=== PATIENT | male | born 1980 | race Caucasian/White ===

== ENCOUNTER 2021-11-01 19:47 | Emergency (ER) | payer OTHER, SELFPAY ==
--- NOTE | 2021-11-01 20:17 | ED.MALEGU ---
HPI - Male Genitourinary General Stated complaint: groin area pain Time Seen by Provider: 11/01/21 19:47 Source: patient, RN notes reviewed and old records reviewed Mode of arrival: ambulatory Limitations: no limitations and other (acute pain) History of Present Illness HPI Narrative: Patient has acute right groin pain and pain to right testicle inquired what test we could do for him. Informed that we only have regular x-ray testing at our facility. Patient stated he would just go to ER. Course Course Level of Care: Express Care Visit Discharge Plan Discharge Time of Disposition: 19:55 Quality [place] Coma Scale Eyes: Open Verbal: Oriented and Alert Motor: Follows Commands [place] Coma Total Score: 15
== END 2021-11-01 19:55 | disposition left against medical advice (07) ==
PROVIDERS: Emergency Provider Registered Nurse
DX: Z53.21 Procedure and treatment not carried out due to patient leaving prior to being seen by health care provider (principal)
CPT/HCPCS: 99199

== ENCOUNTER 2021-11-01 20:24 | Emergency (ER) | payer OTHER, SELFPAY ==
--- NOTE | ~2021-11-01 | CT_ITS ---
EXAMINATION: CT abdomen pelvis wo con DATE: 11/01/2021 21:00 INDICATION: Right lower quadrant, pelvic, and testicular pain beginning yesterday. TECHNIQUE: Computed tomography (CT) of the abdomen and pelvis was performed without intravenous contr ast. Automated exposure control and iterative reconstruction technique were employed. The dose-length product was 1082.42 mGy-cm. COMPARISON: None FINDINGS: Lower thorax: Unremarkable Liver: Normal. Biliary/Gallbladder: Gallbladder is normal. No bile duct dilation. Pancreas: No mass or duct dilation. Spleen: Normal. Adrenals:No mass. Kidneys: No mass, stone, or hydronephrosis. GI tract: No small or large bowel dilation. Normal appendix. Chronic fatty wall infiltration of the c olon, as can be seen with chronic IBD, obesity, chemotherapy treatment, and celiac disease. Mild soft tissue density wall thickening of the sigmoid colon and rectum, in areas of incomplete bowel distent ion. Mesentery/Peritoneum: No ascites, mass, or free air. Retroperitoneum: No mass. Pelvis: Prominent seminal vesicles with surrounding inflammatory change which extends along the super ior margin of the prostate. Partially distended bladder with wall thickening. Soft Tissues: Small fat-containing umbilical and bilateral inguinal hernias. Bones: No acute osseous finding. IMPRESSION: Prominent seminal vesicles with inflammatory change that involves the prostate, may reflect seminal v esiculitis/prostatitis in the appropriate clinical context. Bladder wall thickening secondary to inad equate distention versus cystitis. Distal sigmoid and rectal wall thickening may be explained by inad equate distention, although mild colitis remains a possibility. Reviewed, dictated and finalized at location K. IMPRESSION: Prominent seminal vesicles with inflammatory change that involves the prostate, may reflect seminal vesiculitis/prostatitis in the appropriate clinical contex t. Bladder wall thickening secondary to inadequate distention versus cystitis. Distal sigmoid and rectal wall thickening may be explained by inadequate disten tion, although mild colitis remains a possibility.
--- NOTE | ~2021-11-01 | US_ITS ---
EXAMINATION: US scrotum doppler DATE: 11/01/2021 21:50 INDICATION: Right testicular pain. TECHNIQUE: Grayscale and Doppler ultrasound images of the testes were obtained. COMPARISON: CT abdomen and pelvis 11/01/2021 FINDINGS: The right testis measures 5.2 x 3.4 x 2.3 cm. The left testis measures 4.7 x 2.8 x 2.1 cm. There is normal vascular flow to both testes. The right epididymis is normal with normal vascular pia w. The left epididymis is normal with normal vascular flow. There is a small right hydrocele. There a re bilateral varicoceles. IMPRESSION: 1. Small right hydrocele. 2. Bilateral varicoceles. Reviewed, dictated and finalized at location B.
[2021-11-01 20:27] VITALS: BP 122/94; PULSE 72; RESP 18; TEMP 36.4; O2SAT 99
--- NOTE | 2021-11-01 20:45 | ED.MALEGU ---
HPI - Male Genitourinary General Chief complaint: Urogenital-Male Stated complaint: testicular/groin pain, lump Time Seen by Provider: 11/01/21 20:27 History of Present Illness HPI Narrative: 41-year-old male presents the emergency room for evaluation of right testicular pain and pelvic discomfort. Patient states the pain. Started gradually yesterday. States pain is worse when he standing up and slightly improves when sitting down or lying flat. Patient states the pain is stabbing and throbbing. Patient denies any dysuria. Denies nausea, vomiting, constipation, or diarrhea. He states over the weekend he was on vacation with his girlfriend of 2 years, and states that he had intercourse 3-4 times a day for at least 30 to 45 minutes at a time. States the pain was worse following intercourse. Denies any concerns or STIs. Denies injury or trauma to his scrotum. Related Data Home Medications Medication Instructions Recorded Confirmed atorvastatin 40 mg tablet mg 11/01/21 bupropion HCl 300 mg 24 hr tablet, tablet PO 11/01/21 extended release duloxetine 30 mg capsule,delayed mg PO 11/01/21 release (Cymbalta) pantoprazole 11/01/21 Allergies Allergy/AdvReac Type Severity Reaction Status Date / Time No Known Allergies Allergy Verified 11/01/21 21:56 Review of Systems Review of Systems: CONSTITUTIONAL: Denies fever, chills, or sweats. CARDIOVASCULAR: Denies chest pain, palpitations, or edema. RESPIRATORY: Denies cough or dyspnea. GASTROINTESTINAL: Reports pelvic discomfort GENITOURINARY: Denies dysuria or hematuria. Reports right testicle pain SKIN: Denies rash or itching. NEUROLOGIC: Denies headache, numbness, dizziness, or weakness. PSYCHIATRIC: Denies anxiety or depression. Exam Narrative: GENERAL: Well-appearing, well-nourished, and in no acute distress. HEAD: Normocephalic, atraumatic. CHEST: Clear to auscultation. No respiratory distress. No wheezes rales or rhonchi HEART: Regular rate and rhythm. No murmur heard. Normal peripheral pulses. ABDOMEN: Right pelvic tenderness, change tenderness over the right pubis, no notable mass when lying or standing : Mild tenderness to the posterior surface of the right testicle, tenderness to the lateral side of the left testicle, no palpable masses, no erythema, no swelling EXTREMITIES: Normal range of motion. No edema. SKIN: Warm, dry, no rash. NEURO: No focal deficits. Alert and oriented x3. PSYCH: Normal mood and affect. Course Vital Signs Vital signs: Vital Signs Temperature 36.4 C 11/01/21 20:27 Pulse Rate 72 11/01/21 20:27 Respiratory Rate 18 11/01/21 20:27 Blood Pressure 122/94 H 11/01/21 20:27 Pulse Oximetry 99 11/01/21 20:27 Oxygen Delivery Room Air 11/01/21 20:27 Temperature 36.4 C 11/01/21 20:27 Pulse Rate 72 11/01/21 20:27 Respiratory Rate 18 11/01/21 20:27 Blood Pressure 122/94 H 11/01/21 20:27 Pulse Oximetry 99 11/01/21 20:27 Oxygen Delivery Room Air 11/01/21 20:27 MDM - Male Genitourinary MDM Narrative Medical decision making narrative: 41-year-old male presented emergency room complaints of right testicle pain that radiated up into his pelvic region. Patient admitted to recent repeated and lengthy intercourse with his significant other. Testicular ultrasound showed no acute changes, he did have bilateral varicoceles. CT of the abdomen shows inflammation around the seminal vesicle on the right side and inflammatory changes to the prostate. Patient likely experiencing several vasculitis/prostatitis. Patient stated that he was not concerned for STI infection, however patient was agreeable to testing with treatment at this time. Patient was given IV Cipro and we will send him home with p.o. Cipro and follow-up with urology. Imaging Data Radiologist's impression: Impressions Abdomen/Pelvis CT 11/01/21 21:17 IMPRESSION: Prominent seminal vesicles with inflammatory change that involves
[2021-11-01] MEDS: MORPHINE SULFATE (*CRX) 4 MG/ML INJ IV PUSH (21:05)
[2021-11-01] MEDS: ONDANSETRON INJ 4 MG/2 ML VIAL IV PUSH (21:05)
[2021-11-01] MEDS: SODIUM CHLORIDE 0.9% IV 1,000 ML 999 ML IV CONT (21:06)
[2021-11-01 21:12] LABS: Basophils Absolute Auto 0.1 K/mm3 (0.0-0.1); Basophils Percent Auto 0.8 % (0.2-1.2); Eosinophils Absolute Auto 0.2 K/mm3 (0-0.3); Eosinophils Percent Auto 2.3 % (0-4.4); Hematocrit 41.2 % (42.0-52.0); Hemoglobin 13.9 g/dL (14.0-18.0); Immature Granulocyte Absolute 0.03 K/mm3 (0.00-0.031); Immature Granulocyte Percent A 0.3 % (0-0.5); Lymphocytes Absolute Auto 2.71 K/mm3 (0.9-3.2); Lymphocytes Percent Auto 31.1 % (18.3-44.2); Mean Corpuscular HGB Conc 33.7 g/dl (32-36); Mean Corpuscular Hemoglobin 31.5 pg (26-34); Mean Corpuscular Volume 93.4 fl (80-100); Mean Platelet Volume 9.2 fl (7.4-10.4); Monocytes Absolute Auto 0.9 K/mm3 (0.1-0.6); Monocytes Percent Auto 10.5 % (2.6-8.5); Neutrophils Absolute Auto 4.8 K/mm3 (1.3-6.7); Platelet Count Result 224 k/mm3 (150-375); Red Blood Count 4.41 M/mm3 (4.6-6.20); Red Cell Distribution Width 12.7 % (11.5-14.5); White Blood Count 8.7 K/mm3 (4.5-10.0)
[2021-11-01 21:26] LABS: Alanine Aminotransferase 45 U/L (6-50); Albumin Level 4.2 g/dL (3.5-5.1); Alkaline Phosphatase 81 U/L (38-126); Anion Gap 7 mmol/L (8-16); Aspartate Amino Transferase 28 U/L (17-59); Bilirubin,Total 0.8 mg/dL (0.2-1.3); Blood Urea Nitrogen 13 mg/dL (9-20); Calcium 8.7 mg/dL (8.4-10.2); Carbon Dioxide 28 mmol/L (22-30); Chloride 104 mmol/L (98-107); Estimated CRCL calculation 96 ml/min; Estimated Glomerular Filt Rate > 60; Glucose 92 mg/dL (65-110); Potassium 3.8 mmol/L (3.4-5.0); Sodium 139 mmol/L (137-145)
[2021-11-01 23:03] LABS: Appearance Urine Clear (Clear); Bilirubin Urine Negative (Negative); Blood Urine Negative (Negative); Color Urine Yellow (Yellow); Glucose Urine UA Negative (Negative); Ketones Urine Negative (Negative); Leukocyte Esterase Ur Trace LEU/UL (Negative); Nitrate Urine Negative (Negative); Protein Urine 1+ mg/dL (Negative); Specific Grav Ur 1.025 (1.001-1.035); pH Urine 6.5 (5.0-9.0)
[2021-11-01 23:10] LABS: Bacteria Urine Trace /hpf; Mucus Urine Moderate /lpf; Squamous Epithelial Cell Urine Rare /hpf (Few); WBC Urine 16-20 /hpf
[2021-11-01 23:11] LABS: Add Urine Microscopic? YES
[2021-11-01] MEDS: CIPROFLOXACIN 400 MG/D5W 200ML 200 ML 200 MG IVPB (23:13)
--- NOTE | 2021-11-01 23:13 | PC.NURSE ---
Assumed care of pt at this time, report taken from Rosalina SCOTT. Pt alert and upright on stretcher, updated on POC.
[2021-11-01 23:15] VITALS: BP 119/72; PULSE 72; RESP 16; O2SAT 97
[2021-11-01 23:20] LABS: Prostate Specific Antigen 0.9 ng/mL (< OR = 4.0)
[2021-11-02 00:40] VITALS: BP 122/80; PULSE 68; RESP 16; O2SAT 97
== END 2021-11-02 00:43 | disposition home or self-care (01) ==
PROVIDERS: Emergency Provider Nurse Practitioner Family
DX: N49.0 Inflammatory disorders of seminal vesicle (principal); N50.811 Right testicular pain
CPT/HCPCS: 36415; 74176; 76870; 80053; 81001; 84153; 85025; 87086; 87491; 87591; 87661; 93976; 96361; 96365; 96375; 99284; J0744; J2270; J2405; J7030

== ENCOUNTER 2022-05-09 08:56 | Emergency (ER) | payer OTHER, SELFPAY ==
[2022-05-09 09:28] VITALS: BP 129/77; PULSE 106; RESP 18; TEMP 37.8; O2SAT 100
--- NOTE | 2022-05-09 10:23 | ED.GENADULT ---
HPI - General Adult General Chief complaint: Upper Respiratory Infection Stated complaint: fever,stomach pain,sinus drainage,body aches Source: patient Mode of arrival: ambulatory Limitations: no limitations History of Present Illness HPI narrative: Patient presents for evaluation of sick symptoms since yesterday. Symptoms include fever, generalized body aches, fatigue, occasional cough, nausea, diarrhea, sinus congestion and postnasal drainage.. No vomiting, shortness of breath or sore throat. His daughter recently had similar symptoms. He has received COVID vaccination. He quit smoking a week ago. No additional complaints or concerns. Related Data Home Medications Medication Instructions Recorded Confirmed atorvastatin 40 mg tablet mg 11/01/21 bupropion HCl 300 mg 24 hr tablet, tablet PO 11/01/21 extended release duloxetine 30 mg capsule,delayed mg PO 11/01/21 release (Cymbalta) pantoprazole 11/01/21 Allergies Allergy/AdvReac Type Severity Reaction Status Date / Time No Known Allergies Allergy Verified 05/09/22 09:47 Review of Systems Review of Systems: CONSTITUTIONAL: Reports fever and fatigue. EYES: Denies visual changes, redness, or discharge. ENT: Reports sinus congestion, postnasal drainage. Denies sore throat or otalgia. CARDIOVASCULAR: Denies chest pain, palpitations, or edema. RESPIRATORY: Reports cough. Denies shortness of breath. GASTROINTESTINAL: Reports nausea and diarrhea. Denies abdominal pain or vomiting GENITOURINARY: Denies dysuria or hematuria. SKIN: Denies rash or itching. MUSCULOSKELETAL: Reports generalized body aches NEUROLOGIC: Denies headache, numbness, dizziness, or weakness. PSYCHIATRIC: Denies anxiety or depression. [facility] Past Medical History Medical History (Updated 05/09/22 @ 10:25 by PETER Echols, JOHN PAUL) No pertinent past medical history Surgical History Surgical History (Updated 05/09/22 @ 10:25 by PETER Echols, JOHN PAUL) No pertinent past surgical history Family History Family History Mother Family history non-contributory Social History Social History Smoking status: Former smoker Gender identity (if verbalized by the patient): Male Sexual Orientation (if Verbalized by the Patient): Straight or Heterosexual Spiritual care concerns: No Exam Narrative: GENERAL: Appears acutely ill but nontoxic. HEAD: Normocephalic, atraumatic. EYES: PERRLA and EOMI. ENT: Nares clear, no rhinorrhea or epistaxis. Mucous membranes moist. Oropharynx without tonsillar hypertrophy exudate or other lesions. Bilateral TMs pearly patterson nonbulging NECK: Supple. No adenopathy or masses. No carotid bruits or JVD CHEST: Clear to auscultation. No respiratory distress. No wheezes rales or rhonchi HEART: Regular rate and rhythm. No murmur heard. Normal peripheral pulses. ABDOMEN: Soft, nontender, nondistended, normal active bowel sounds. EXTREMITIES: Normal range of motion. No edema. SKIN: Warm, dry, no rash. NEURO: No focal deficits. Alert and oriented x3. PSYCH: Normal mood and affect. Course Course Emergency Course: This is a 42-year-old male who presented for evaluation of sick symptoms. Influenza positive, COVID negative. Will treat with Tamiflu. Increase hydration. [id number] medications for symptom management. Follow up with primary provider. Go to the ER for worsening symptoms. Patient in agreement with care. Level of Care: Express Care Visit Vital Signs Vital signs: Vital Signs Temperature 37.8 C H 05/09/22 09:28 Pulse Rate 106 H 05/09/22 09:28 Respiratory Rate 18 05/09/22 09:28 Blood Pressure 129/77 05/09/22 09:28 Pulse Oximetry 100 05/09/22 09:28 Oxygen Delivery Room Air 05/09/22 09:28 Temperature 37.8 C H 05/09/22 09:28 Pulse Rate 106 H 05/09/22 09:28 Respiratory Rate 1
== END 2022-05-09 10:30 | disposition home or self-care (01) ==
PROVIDERS: Emergency Provider Nurse Practitioner
DX: J10.1 Influenza due to other identified influenza virus with other respiratory manifestations (principal); Z20.822 Contact with and (suspected) exposure to COVID-19; Z87.891 Personal history of nicotine dependence
CPT/HCPCS: 87081; 87426; 87804; 99213; C9803; G0463

== ENCOUNTER 2024-01-10 08:44 | Emergency (ER) | payer OTHER, SELFPAY ==
[2024-01-10 08:50] VITALS: BP 134/81; PULSE 89; RESP 20; TEMP 36.7; O2SAT 100
--- NOTE | 2024-01-10 09:15 | ED.EYEPROB ---
HPI - Eye Problem General Chief complaint: Eye Problems Stated complaint: eyes/pressure around eyes History of Present Illness HPI Narrative: Patient presents with left eye watering matted shut this morning and red. No injury to his eye he does not were contacts. Patient states his kids were just surrounding the thinks that they shared their pinkeye with him. No vision problems. Related Data Home Medications Medication Instructions Recorded Confirmed atorvastatin 10 mg tablet 10 mg PO DAILY 01/10/24 01/10/24 bupropion HCl 300 mg 24 hr tablet, 300 mg PO QAM 01/10/24 01/10/24 extended release (Wellbutrin XL) dextroamphetamine-amphetamine 10 10 mg PO DAILY 01/10/24 01/10/24 mg tablet (Adderall) Allergies Allergy/AdvReac Type Severity Reaction Status Date / Time No Known Allergies Allergy Verified 01/10/24 09:09 Review of Systems Review of Systems: CONSTITUTIONAL: Denies fever, chills, or sweats. EYES: Denies visual changes, redness, or discharge. ENT: Denies rhinorrhea, congestion, sore throat, or otalgia. CARDIOVASCULAR: Denies chest pain, palpitations, or edema. RESPIRATORY: Denies cough or dyspnea. GASTROINTESTINAL: Denies abdominal pain, nausea, vomiting, or diarrhea. GENITOURINARY: Denies dysuria or hematuria. SKIN: Denies rash or itching. MUSCULOSKELETAL: Denies back pain, joint pain, or myalgia. NEUROLOGIC: Denies headache, numbness, or weakness. PSYCHIATRIC: Denies anxiety or depression. [facility] Past Medical History Medical History (Updated 01/10/24 @ 09:16 by PETER Whitaker) No pertinent past medical history Surgical History Surgical History (Updated 05/09/22 @ 10:25 by PETER Echols, ) No pertinent past surgical history Family History Family History Mother Family history non-contributory Social History Social History Smoking status: Former smoker Living arrangements: with family Gender identity (if verbalized by the patient): Male Sexual Orientation (if Verbalized by the Patient): Straight or Heterosexual Spiritual care concerns: No Comments At time of signature, agree with nursing past medical, surgical, social and family history. There is no relevant family history pertinent to the presenting complaint Exam Narrative: GENERAL: Well-appearing, well-nourished, and in no acute distress. HEAD: Normocephalic, atraumatic. EYES: PERRLA and EOMI. ENT: Nares clear, no rhinorrhea or epistaxis. Mucous membranes moist. NECK: Supple. CHEST: Clear to auscultation. No respiratory distress. HEART: Regular rate and rhythm. No murmur heard. Normal peripheral pulses. ABDOMEN: Soft, nontender, nondistended, normal active bowel sounds. EXTREMITIES: Normal range of motion. No edema. SKIN: Warm, dry, no rash. NEURO: No focal deficits. Alert and oriented x3. [place] Coma Scale Eye Opening: Spontaneous 4 [place] Coma Scale Motor: Obeys Commands 6 [place] Coma Scale Verbal: Oriented 5 [place] Coma Scale Total 15 Eyes: Conjunctivae: conjunctival abnormality left and localized (Conjunctivitis) Course Course Level of Care: Express Care Visit Vital Signs Vital signs: Vital Signs Temperature 36.7 C 01/10/24 08:50 Pulse Rate 89 01/10/24 08:50 Respiratory Rate 20 01/10/24 08:50 Blood Pressure 134/81 01/10/24 08:50 Pulse Oximetry 100 01/10/24 08:50 Oxygen Delivery Room Air 01/10/24 08:50 Temperature 36.7 C 01/10/24 08:50 Pulse Rate 89 01/10/24 08:50 Respiratory Rate 20 01/10/24 08:50 Blood Pressure 134/81 01/10/24 08:50 Pulse Oximetry 100 01/10/24 08:50 Oxygen Delivery Room Air 01/10/24 08:50 Discharge Plan Discharge Clinical Impression: Bacterial conjunctivitis Patient Disposition: Home, Self-Care Condition: Stable Instructions: Antibiotic Form Additional Instructions: Con
== END 2024-01-10 09:20 | disposition home or self-care (01) ==
PROVIDERS: Emergency Provider Nurse Practitioner Family
DX: H10.9 Unspecified conjunctivitis (principal); Z87.891 Personal history of nicotine dependence
CPT/HCPCS: 99213; G0463

== ENCOUNTER 2024-01-29 08:17 | Emergency (ER) | payer OTHER, SELFPAY ==
[2024-01-29 08:30] VITALS: BP 128/75; PULSE 82; RESP 16; TEMP 36.6; O2SAT 97
--- NOTE | 2024-01-29 08:46 | ED.URI ---
HPI - URI/Sore Throat General Chief Complaint: Upper Respiratory Infection Stated Complaint: throat/drainage/headaches Time Seen by Provider: 01/29/24 08:44 Source: patient, RN notes reviewed and old records reviewed Mode of arrival: ambulatory Limitations: no limitations History of Present Illness HPI Narrative: 43 year old male who presents to [facility] care with complaints of 3 day history of feeling feverish having body aches with some sore throat and having pressure feelings in his left ear with discomfort to glands in his left neck. Patient reports that he has traveled from [place] within the past 3 days. Patient reports that he feels congestion to his sinus area and stuffy with throat especially sore with swallowing. Patient reports that he has been taking Sudafed and also Tylenol for his symptoms. Patient reports that he had COVID in November and had strep throat in June. MD elicited complaint: fever, cough, sore throat, rhinorrhea, nasal congestion, sinus pain and other (left ear pain and body aches) Pertinent past history: other (COVID in November and strep throat in June recently flew) Onset (ago): day(s) (3) Severity: moderate Able to tolerate fluids by mouth: Yes Treatments prior to arrival: acetaminophen and other (Sudafed) Related Data Home Medications Medication Instructions Recorded Confirmed atorvastatin 10 mg tablet 10 mg PO DAILY 01/10/24 01/10/24 bupropion HCl 300 mg 24 hr tablet, 300 mg PO QAM 01/10/24 01/10/24 extended release (Wellbutrin XL) dextroamphetamine-amphetamine 10 10 mg PO DAILY 01/10/24 01/10/24 mg tablet (Adderall) Allergies Allergy/AdvReac Type Severity Reaction Status Date / Time No Known Allergies Allergy Verified 01/10/24 09:09 Review of Systems Review of Systems: CONSTITUTIONAL: Reports malaise, chills, sweats, or fever. EYES: Denies visual changes, redness, or discharge. ENT: Reports rhinorrhea, congestion, sinus pain, left otalgia and positive for sore throat. CARDIOVASCULAR: Denies chest pain, palpitations, or edema. RESPIRATORY: Reports cough.? Denies dyspnea. GASTROINTESTINAL: Denies abdominal pain, nausea, vomiting, diarrhea SKIN: Denies rash or itching. MUSCULOSKELETAL: Reports myalgia. NEUROLOGIC: Reports headache. All systems reviewed & are unremarkable except as noted in HPI and below PMFSH Past Medical History Medical History Depression Elevated cholesterol PTSD (post-traumatic stress disorder) Sleep apnea treated with continuous positive airway pressure (CPAP) Surgical History Surgical History History of nasal surgery History of vasectomy Family History Family History Mother Family history non-contributory Social History Social History Smoking status: Former smoker Living arrangements: with family Gender identity (if verbalized by the patient): Male Sexual Orientation (if Verbalized by the Patient): Straight or Heterosexual Spiritual care concerns: No Comments At time of signature, agree with nursing past medical, surgical, social and family history. There is no relevant family history pertinent to the presenting complaint Exam Narrative: GENERAL: Well-appearing, well-nourished, and in no acute distress. HEAD: Normocephalic EYES: PERRLA, conjunctivae clear ENT: Nares clear, turbinates edematous and erythematous, clear discharge. Mucous membranes moist.Left TM red, Right TM pearly patterson with dull light reflex; no tragal tenderness. Oropharynx erythematous without lesions. Tonsils red enlarged and without exudate, no drooling, no hoarseness, no trismus, uvula midline and swollen.post nasal drainage NECK: Supple. positive lymphadenopathy CHEST: Clear to auscultation, breath sounds equal. No wheez
[2024-01-29 09:23] LABS: EDINFLUASCREEN Negative (Negative); EDINFLUBSCREEN Negative (Negative); EDSTREPNEGPOS1 Negative (Negative)
== END 2024-01-29 09:28 | disposition home or self-care (01) ==
PROVIDERS: Emergency Provider Registered Nurse
DX: H66.92 Otitis media, unspecified, left ear (principal); Z20.822 Contact with and (suspected) exposure to COVID-19; E78.00 Pure hypercholesterolemia, unspecified; G47.30 Sleep apnea, unspecified; Z98.52 Vasectomy status; F32.A Depression, unspecified; Z87.891 Personal history of nicotine dependence
CPT/HCPCS: 87081; 87426; 87804; 87880; 99213; G0463

== ENCOUNTER 2024-05-01 12:52 | Emergency (ER) | payer OTHER, SELFPAY ==
[2024-05-01 13:02] VITALS: BP 124/89; PULSE 79; RESP 20; TEMP 37.1; O2SAT 100
[2024-05-01 13:36] LABS: EDUAAPPEAR Sediment; EDUABILI Negative (Negative); EDUABLOOD 1+ (Negative); EDUACOLOR1 Yellow; EDUAGLUCOSE Negative (Negative); EDUAKETONE Negative (Negative); EDUALEUKO Trace (Negative); EDUANITRATE Negative (Negative); EDUAPROTEIN Negative (Negative); EDUASPGRAVITY 1.025; EDUAUROBILI 0.2
--- NOTE | 2024-05-01 14:20 | ED.GENADULT ---
HPI - General Adult General Chief complaint: Urogenital-Male Stated complaint: Poss UTI Time Seen by Provider: 05/01/24 14:20 Source: patient, RN notes reviewed and old records reviewed Mode of arrival: ambulatory Limitations: no limitations History of Present Illness HPI narrative: 44-year-old male to [facility] with complaint of burning with urination and penile discharge that started this morning. Patient reports that he has been having excessive amounts of unprotected sexual intercourse with his significant other. Patient states that he has recently fallen asleep after sexual intercourse without urination or showering. Patient concerned for urinary tract infection, STI. Patient denies urinary changes, bowel changes, abdominal pain, testicular pain, hematuria, allergies, pertinent medical history. Patient resting comfortably in exam room in no acute distress. Related Data Home Medications ?Medication ?Instructions ?Recorded ?Confirmed ?Last Taken ?Type atorvastatin 10 mg tablet 10 mg PO DAILY 01/10/24 05/01/24 Unknown History bupropion HCl 300 mg 24 hr tablet, 300 mg PO QAM 01/10/24 05/01/24 Unknown History extended release (Wellbutrin XL) dextroamphetamine-amphetamine 10 10 mg PO DAILY 01/10/24 05/01/24 Unknown History mg tablet (Adderall) Allergies Allergy/AdvReac Type Severity Reaction Status Date / Time No Known Allergies Allergy Verified 05/01/24 13:25 Review of Systems Review of Systems: All systems reviewed & are unremarkable except as noted in HPI and below Constitutional: Constitutional: Reports no additional constitutional complaints Eyes: Eyes: Reports no additional eye complaints ENT: Reports system reviewed and no additional complaints, except as documented Cardiovascular: Cardiovascular: Reports no additional cardiovascular complaints, Denies chest pain and Denies dyspnea Respiratory: Respiratory: Reports no additional respiratory complaints, Denies cough and Denies dyspnea Genitourinary: Genitourinary: Reports as per HPI, Denies hematuria, Denies oliguria, Denies genital pain, Reports dysuria, Denies flank pain, Reports penile discharge, Denies testicular pain, Denies urinary frequency, Denies urinary hesitancy and Denies urinary incontinence Musculoskeletal: Musculoskeletal: Reports no additional musculoskeletal complaints Neurologic: Reports system reviewed and no additional complaints, except as documented Psychiatric: Psychiatric: Reports no additional psychiatric complaints PMFSH Past Medical History Medical History Depression Elevated cholesterol PTSD (post-traumatic stress disorder) Sleep apnea treated with continuous positive airway pressure (CPAP) Surgical History Surgical History History of nasal surgery History of vasectomy Family History Family History Mother Family history non-contributory Social History Social History Smoking status: Former smoker Living arrangements: with family Gender identity (if verbalized by the patient): Male Sexual Orientation (if Verbalized by the Patient): Straight or Heterosexual Spiritual care concerns: No Comments At the time of my signature, I reviewed and agree with the nursing past medical, surgical, social, and family history. There is no relevant family history pertinent to the patient complaint. Exam Const: General: cooperative, healthy appearing, comfortable, no acute distress, alert and well nourished Nutritional Appearance: well nourished Orientation/consciousness: patient oriented x3 Limitations: no limitations HENMT: Head: normal to inspection Ears: external ears normal Face/Nose/Sinus: Normal external nose present, Normal nares present, normal facial exam, No erythema and No edema Face and sinus: normal facial exam, no erythema and no edema Mouth: Yes Normal oral and palatal mucosa present Eyes: General: appearance normal, both eyes and all related structures Neck: Neck: normal visual inspection, full ROM and no meningeal signs Chest: Chest palpation & inspection: normal inspection of the chest Resp: Effort & Inspection: normal respiratory effort and able to speak in complete sentences Cardio: Jugular venous distension: no JVD Rate: regular rate Rhythm: regular rhythm : General: Yes no CVA tenderness Back/Spine/Pelvis: Cervical Spine: cervical ROM normal Skin: General skin exam: normal color, no rashes or lesions noted and turgor normal Neuro: General: patient oriented x3, gait normal, moves all extremities and no meningeal signs Speech: normal speech Gait exam (Neuro): Normal gait present Extrem: General: normal to inspection, full ROM and capillary refill normal Psych: Appearance: grossly normal and well kempt Course Course Emergency Course: Some parts of this dictation were generated by voice recognition software and may contain typographical and/or grammatical inaccuracies. Level of Care: Express Care Visit Vital Signs Vital signs: Vital Signs Temperature 37.1 C 05/01/24 13:02 Pulse Rate 79 05/01/24 13:02 Respiratory Rate 20 05/01/24 13:02 Blood Pressure 124/89 05/01/24 13:02 Pulse Oximetry 100 05/01/24 13:02 Oxygen Delivery Room Air 05/01/24 13:02 Temperature 37.1 C 05/01/24 13:02 Pulse Rate 79 05/01/24 13:02 Respiratory Rate 20 05/01/24 13:02 Blood Pressure 124/89 05/01/24 13:02 Pulse Oximetry 100 05/01/24 13:02 Oxygen Delivery Room Air 05/01/24 13:02 reviewed Medical Decision Making MDM Narrative Medical decision making narrative: 44-year-old male to [facility] with complaint of burning with urination and penile discharge that started this morning. Patient reports that he has been having excessive amounts of unprotected sexual intercourse with his significant other. Patient states that he has recently fallen asleep after sexual intercourse without urination or showering. Patient concerned for urinary tract infection, STI. Patient denies urinary changes, bowel changes, abdominal pain, testicular pain, hematuria, allergies, pertinent medical history. Patient resting comfortably in exam room in no acute distress. Patient is sitting comfortably in exam room nontoxic in appearance. Patient exam unremarkable. UA positive for hematuria and leukocytes in clinic. Culture sent. STI testing sent. Patient appropriate for outpatient treatment and follow-up. Discharge instructions reviewed with patient, as well as provided in writing per nursing staff. The instructions also include specific and strict return/GO TO THE ER as well as f/u information. All questions have been answered, and the patient deny any further questions with discharge and discharge plan. Some parts of this dictation were generated by voice recognition software and may contain typographical and/or grammatical inaccuracies. Differential Diagnosis Differential Diagnosis: Gonorrhea, chlamydia, Trichomonas, urinary tract infection Vital Signs Vital Signs: Vital Signs Temperature 37.1 C 05/01/24 13:02 Pulse Rate 79 05/01/24 13:02 Respiratory Rate 20 05/01/24 13:02 Blood Pressure 124/89 05/01/24 13:02 Pulse Oximetry 100 05/01/24 13:02 Oxygen Delivery Room Air 05/01/24 13:02 Temperature 37.1 C 05/01/24 13:02 Pulse Rate 79 05/01/24 13:02 Respiratory Rate 20 05/01/24 13:02 Blood Pressure 124/89 05/01/24 13:02 Pulse Oximetry 100 05/01/24 13:02 Oxygen Delivery Room Air 05/01/24 13:02 Lab Data Labs: Lab Results 05/01/24 05/01/24 Range/Units 13:13 13:22 POC Urine Color Yellow POC Urine Clarity Sediment POC Urine pH 7.0 POC Ur Specif [place] 1.025 POC Urine Protein Negative (Negative) POC Ur Glucose (UA) Negative (Negative) POC Urine Ketones Negative (Negative) POC Urine Blood 1+ (Negative) POC Urine Nitrite Negative (Negative) POC Urine Bilirubin Negative (Negative) POC Urine Urobilinogen 0.2 POC U Leukocyte Esteras Trace (Negative) C. trachomatis (PCR) Not detected (NOT DETECTE) N. gonorrhoeae (PCR) Detected A (NOT DETECTE) T. vaginalis (PCR) Not detected (NOT DETECTE) Discharge Plan Discharge Clinical Impression: Concern about STI in male without diagnosis Patient Disposition: Home, Self-Care Condition: Stable Instructions: Sexually Transmitted Diseases (ED), Safe Sex Practices (ED) Additional Instructions: please review detached instructions and implement suggestions please finish entire course prescription treatments for new or worsening symptoms please go directly to the emergency department Patient Language: Azeri Prescriptions: New doxycycline hyclate 100 mg capsule 100 mg PO DAILY Qty: 14 0RF metronidazole 500 mg tablet 500 mg PO Q12H Qty: 14 0RF No Action atorvastatin 10 mg Tablet 10 mg PO DAILY dextroamphetamine-amphetamine [Adderall] 10 mg Tablet 10 mg PO DAILY bupropion HCl [Wellbutrin XL] 300 mg Tablet Extended Release 24 Hr 300 mg PO QAM Follow-up/Referrals: [facility] [Primary Care Provider] -
[2024-05-01] MEDS: cefTRIAXone 500 MG, LIDOCAINE HCL 1% LOCAL INJ 1 ML IM (14:56)
[2024-05-01 21:36] LABS: Trichomonas Vag PCR NOT DETECTED (NOT DETECTE)
[2024-05-01 21:59] LABS: Chlamydia trachomatis NOT DETECTED (NOT DETECTE); Neisseria gonorrhoeae PCR DETECTED (NOT DETECTE)
== END 2024-05-01 15:05 | disposition home or self-care (01) ==
PROVIDERS: Emergency Provider Nurse Practitioner Family
DX: Z20.2 Contact with and (suspected) exposure to infections with a predominantly sexual mode of transmission (principal); Z87.891 Personal history of nicotine dependence; E78.00 Pure hypercholesterolemia, unspecified; G47.30 Sleep apnea, unspecified; F32.A Depression, unspecified; F43.10 Post-traumatic stress disorder, unspecified
CPT/HCPCS: 81003; 87086; 87491; 87591; 87661; 96372; 99213; G0463; J0696; J2003

== ENCOUNTER 2024-08-20 08:08 | Emergency (ER) | payer OTHER, SELFPAY ==
--- NOTE | 2024-08-20 08:10 | ED_ITS ---
HPI - Skin/Abscess/Foreign Bdy General Chief complaint: Skin/Abscess/Foreign Body Stated complaint: lump under right arm Time Seen by Provider: 08/20/24 08:26 Source: patient, RN notes reviewed and old records reviewed Mode of arrival: ambulatory Limitations: no limitations History of Present Illness HPI narrative: 44-year-old male presents to the [facility] with complaints an abscess to the right axilla states that started approximately 1 week ago. Has been applying warm compresses. Denies any history of similar Onset (ago): week(s) (1) Related Data Home Medications ?Medication ?Instructions ?Recorded ?Confirmed ?Last Taken ?Type atorvastatin 10 mg tablet 10 mg PO DAILY 01/10/24 05/01/24 Unknown History bupropion HCl 300 mg 24 hr tablet, 300 mg PO QAM 01/10/24 05/01/24 Unknown History extended release (Wellbutrin XL) dextroamphetamine-amphetamine 10 10 mg PO DAILY 01/10/24 05/01/24 Unknown Histo ry mg tablet (Adderall) Allergies Allergy/AdvReac Type Severity Reaction Status Date / Time No Known Allergies Allergy Verified 05/01/24 13:25 Review of Systems Review of Systems: All systems reviewed & are unremarkable except as noted in HPI and below Constitutional: Constitutional: Reports no additional constitutional complaints ENT: Reports system reviewed and no additional complaints, except as d ocumented Cardiovascular: Cardiovascular: Reports no additional cardiovascular complaints, Denies chest pain and Denies dyspnea Respiratory: Respiratory: Reports no additional respiratory complaints, Denies chest congestion, Denies cough and Denies dyspnea Musculoskeletal: Musculoskeletal: Reports no additional musculoskeletal complaints Integumentary/Breasts: Skin/Breast: Reports as per HPI [facility] Past Medical History Medical History Sleep apnea treated with continuous positive airway pressure (CPAP) PTSD (post-traumatic stress disorder) Depression Elevated cholesterol Surgical History Surgical History History of vasectomy History of nasal surgery Family History Family History Mother Family history non-contributory Social History Social History Smoking status: Former smoker Living arrangements: with family Gender identity (if verbalized by the patient): Male Sexual Orientation (if Verbalized by the Patient): Straight or Heterosexual Spiritual care concerns: No Comments At the time of my signature, I reviewed and agree with the nursing past medical, surgical, social, and family history. There is no relevant family history pertinent to the patient complaint. Exam Const: General: cooperative, healthy appearing, comfortable, no acute distress, well developed, alert and well nourished Nutritional Appearance: well nourished Orientation/consciousness: patient oriented x3 Limitations: no limitations HENMT: Head: normal to inspection Eyes: General: appearance normal, both eyes and all related structures Alignment and Position: alignment normal Neck: Neck: normal visual inspection, full ROM, no lymphadenopathy and no meningeal signs Chest: Chest palpation & inspection: normal inspection of the chest Resp: Effort & Inspection: normal respiratory effort and able to speak in complete sentences Auscultation: clear to auscultation bilaterally, no crackles, no rales, no rhonchi and no wheezes Cardio: Rate: regular rate Skin: General skin exam: normal color and no rashes or lesions noted Other: 3 x 2 cm abscess, red, raised to the center of the right axilla. Fluctuant area just above, read non fluctuant area Neuro: General: patient oriented x3, gait normal, moves all extremities and no meningeal signs Cognition (Neuro): normal cognition Speech: normal speech Gait exam (Neuro): Normal gait present Extrem: General: normal to inspection, full ROM, capillary refill normal and normal gait Psych: Appearance: grossly normal and well kempt Mental Status: mental status grossly normal Speech and movement: Normal speech and movement present and Clear speech present Affect: normal affect Attitude: cooperative Course Course Level of Care: Express Care Visit Vital Signs Vital signs: Vital Signs Temperature 97.9 F 08/20/24 08:20 Pulse Rate 76 08/20/24 08:20 Respiratory Rate 16 08/20/24 08:20 Blood Pressure 116/72 08/20/24 08:20 Pulse Oximetry 99 08/20/24 08:20 Oxygen Delivery Autopap 08/20/24 08:20 Temperature 97.9 F 08/20/24 08:20 Pulse Rate 76 08/20/24 08:20 Respiratory Rate 16 08/20/24 08:20 Blood Pressure 116/72 08/20/24 08:20 Pulse Oximetry 99 08/20/24 08:20 Oxygen Delivery Autopap 08/20/24 08:20 Reviewed Procedures Abscess I/D upper extremity: Date of Incision: 08/20/24 Time of Incision: 09:00 Side (if applicable): right Local Anesthetic: lidocaine 1% Amount of anesthesia used (mL): 11 Technique: incised with #11 blade Amount of fluid expressed (mL): 20 Irrigation: Yes Packing used?: none I&D Results: Pus Abcess I&D Additional Comments: procedure explained to patient, verbal consent obtained. Cleaned with Betadine. Originally did a circumferential block with lidocaine 6 mL, complete anesthesia not achieved. Used an additional 5 mils. Attended to open, smaller incision made, patient not tolerating well. Able to drain a very significant amount purulent drainage. Area was irrigated with total of 15 pills of saline. Some additional purulent drainage was noted. Left open. Dressing at a been applied. MDM - Skin/Abscess/Foreign Bdy MDM Narrative Medical decision making narrative: Patient sitting in exam room. Nontoxic, vitals are stable. Patient presents with abscess attempt to drain, patient not tolerating well small incision was made, culture sent, started patient on antibiotic stressed the importance of following up with his primary care provider or surgery for further evaluation and removal of abscess. Discussed signs and symptoms to proceed to the emergency room which he verbalized understanding Discharge instructions reviewed with patient, as well as provided in writing per nursing staff. The instructions also include specific and strict return/GO TO THE ER as well as f/u information. All questions have been answered, and the patient deny any further questions with discharge and discharge plan. Some parts of this dictation were generated by voice recognition software and may contain typographical and/or grammatical inaccuracies. Differential Diagnosis Differential diagnosis: Likely abscess of skin or subcutaneous tissue Critical Care Time Critical Care Time Critical Care Time: No Discharge Plan Discharge Clinical Impression: Abscess of skin or subcutaneous tissue Qualifiers: Site of cutaneous abscess: extremity Site of cutaneous abscess of extremity: upper extremity Laterality: right Qualified Code(s): L02.413 - Cutaneous abscess of right upper limb Patient Disposition: Home, Self-Care Condition: Stable Instructions: Antibiotic Form, Abscess (ED), Abscess Incision and Drainage (DC) Additional Instructions: DO NOT pick at the area. This will only make the area worse and drive infection deeper. Shower and wash with soapy water. Keep area clean and dry. Take all the antibiotics as prescribed. Make sure to keep a dressing in place especially while it is draining Follow up with PCP in 5 days Go to the ER for worsened condition or Symptoms Patient Language: Danish Prescriptions: New clindamycin HCl 300 mg capsule 300 mg PO TID 7 Days Qty: 21 0RF clindamycin HCl 150 mg capsule 150 mg PO TID 7 Days Qty: 21 0RF Rx Instructions: TAKE WITH 300 MG No Action atorvastatin 10 mg Tablet 10 mg PO DAILY dextroamphetamine-amphetamine [Adderall] 10 mg Tablet 10 mg PO DAILY bupropion HCl [Wellbutrin XL] 300 mg Tablet Extended Release 24 Hr 300 mg PO QAM Follow-up/Referrals: [facility] [Primary Care Provider] - 3 Days ( [facility] follow-up, abscess) Time of Disposition: 09:27
--- OUTSIDE RECORDS SUMMARY | 2024-08-20 08:17 | XMS_ITS | Patient Health Record ---
Author Organization [facility] Address [address] [place] [address] Care Team Providers Care Sock Liner Name Role Phone WALT PILO Primary Care Provider [phone] Allergies Allergen (clinical drug ingredient) Drug/Non Drug Allergy documented on EMR Reaction Allergy Type Onset Date Status No Known Drug Allergy Unknown Drug Allergy Active No Known Food Allergy Unknown Drug Allergy Active Results Component Value Reference Range Notes BinaxNOW COVID-19 Ag Reviewed date:12/22/2023 03:27:48 PM Interpretation:Positive Performing Lab: Notes/Report: Positive SARS-CoV-2 nucleocapsid antigens Positive Reason For Referral No Information Medications Medication SIG (Take, Route, Frequency, Duration) Notes Start Date End Date Status Paxlovid (150/100) 10 x 150 MG & 10 x 100MG as directed Orally daily for 5 days 12/22/2023 Active Adderall 10 MG 1 tablet Orally Twic e a day Active Atorvastatin Calcium 20 MG 1 tablet Oral ly Once a day Active Wellbutrin SR 200 MG 1 tablet in the mor jake Orally Once a day 300 mg 12/22/2023 Active Social History Tobacco Use: Social History Observation Description Date Details (start date - stop date) Never Smoker NA - NA Sex Assigned At : Social History Observation Description Sex Assigned At Male Tobacco Control (Standard) Question Answer Notes Tobacco use: Nonsmoker Problems Problem Type SNOMED Code ICD Code Onset Dates Problem Status W/U Status Risk Notes Problem Body mass index 30+ - obesity ([id number]) Body mass index (BMI) of 30.0-30.9 in adult (Z68.30) Active confirmed Vital Signs Heart Rate 91 /min 12/22/2023 Temperature 99.4 degrees Fahrenheit 12/22/2023 Respiratory Rate 18 /min 12/22/2023 Blood pressure diastolic 82 mm Hg 12/22/2023 Oximetry 99 % 12/22/2023 Height-cm 180.34 cm 12/22/2023 Weight-kg 98.88 kg 12/22/2023 Height 71 in 12/22/2023 Blood pressure systolic 120 mm Hg 12/22/2023 Weight 218.0 lbs 12/22/2023 BMI 30.4 kg/m2 12/22/2023 Procedures Procedure Date Ordered Date Performed Result Body Sit e TOBACCO USE ASSESSED 12/22/2023 N/A TOBACCO NON-USER 12/22/2023 N/A SYST BP < 130 MM HG 12/22/2023 N/A DIAST BP < 80 MM HG 12/22/2023 N/A DEPRESSION SCREEN ANNUAL 12/22/2023 N/A ALCOHOL/SUBS INTERV 15-30 MIN 12/22/2023 N/A Pain severity Quantified- No pain present 12/22/2023 N/A BMI above normal parameters and f/u plan documented 12/22/2023 N/A Screening for depression doc umented as negative, so f/u is not required 12/22/2023 N/A Medication Review 12/22/2023 N/A Allergies Reviewed 12/22/2023 N/A Encounters Encounter Location Date Provider Diagnosis [facility] [address] [address] 12/22/2023 PILO GODOY Cough R05 ; Acute COVID-19 U07.1 ; Encounter for screening Z13.9 and Body mass index (BMI) of 30.0-30.9 in adult Z68.30 Assessments Encounter Date Diagnosis (ICD Code) Assessment Notes Treatment Notes Treatment Clinical Notes Section Notes 12/22/2023 Cough (ICD-10 - R05) 12/22/2023 Acute COVID-19 (ICD-10 - U07.1) discussed GI SE like diarrhea. Pt in understanding. Stated not sure if he'll get since he doesn't have insurance. 12/22/2023 Encounter for screening (ICD-10 - Z13.9) 12/22/2023 Body mass index (BMI) of 30.0-30.9 in adult (ICD-10 - Z68.30) Plan Of Treatment Pending Test Test Name Order Date TOBACCO USE ASSESSED 12/22/2023 TOBACCO NON-USER 12/22/2023 SYST BP < 130 MM HG 12/22/2023 DIAST BP < 80 MM HG 12/22/2023 DEPRESSION SCREEN ANNUAL 12/22/2023 ALCOHOL/SUBS INTERV 15-30 MIN 12/22/2023 Pain severity Quantified- No pain presen t 12/22/2023 BMI above normal parameters and f/u plan documented 12/22/2023 Screening for depression documented as n egative, so f/u is not required 12/22/2023 Medication Review 12/22/2023 Allergies Reviewed 12/22/2023 Insurance Providers Payer Name Payer Address Payer Phone Subscriber Number Group Number Insured Name Patient Relationship to Insured Coverage Start Date Coverage End Date [facility] Claims [address] [place] [address] [id number] Swati Mujica Self - patient is the insured Medical (General) History Medical History History ICD Code No latex allergy hypercholesterolemia ADHD Surgical History Surgery Date(Month/Year) nose 05/2016
--- OUTSIDE RECORDS SUMMARY | 2024-08-20 08:17 | XMS_ITS | Encounter Summary ---
Author Name [facility] Organization [facility] [place] Address [address] [place] [address] Care Team Providers Care Paint Dipper Name Role Phone GEENA DELACRUZ Primary Care Provider Unavail able Insurance Providers: All historical and current Section Date Range: From patient's date of to the date document was created. This section includes the names of all active insurance providers for the patient. Insurance Provider Type of Coverage Plan Name Start of Policy Coverage End of Policy Coverage Group Number Member ID Insurance Provider's Telephone Number Policy Urban's Name Patient's Relationship to Policy Urban MEDICAID (WNR) MEDICAID MEDIC AID (WNR) Jun 23, 2020 MEDICAI D [id number] Franchesca MORENO PATIENT Selected Encounter This section includes the information on record at [place] for the Encounter. Date/Time Encounter Type Encounter Description Reason Provider Source Sep 05, 2023 11:00 AM OFFICE O/P EST MOD 30 MIN PRIMARY CARE/MEDICINE ICD-10-CM L30.4 Erythema intertrigo LYSSA NAJERA MA Encounter Template Text not used by [place] Assessments - Encounter Diagnoses This section includes the primary and secondary diagnoses documented for the Encounter. Date/Time Primary/Secondary Diagnosis Diagnosis Name Provider Source Sep 05, 2023 12:31 PM PRIMARY Erythema intertrigo LYSSA NAJERA MA [facility] Sep 05, 2023 12:31 PM SECONDARY Attn-defct hyperactivity disorder, predom inattentive type LYSSA NAJERA MA [facility] Sep 05, 2023 12:31 PM SECONDARY Gastro-esophageal reflux disease without esophagitis LYSSA NAJERA MA [facility] Sep 05, 2023 12:31 PM SECONDARY Hyperlipidemia, unspecified LYSSA NAJERA MA [facility] Sep 05, 2023 12:31 PM SECONDARY 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 This section includes future appointments and future orders which are active, pending or scheduled. Future Appointments This section includes appointments that were scheduled to occur 6 months from the date of the Encounter, up to a maximum of 20 appointments. The data comes from all [facility] facilities. Appointment Date/Time Appointment Type Appointme nt Facility Name Sep 15, 2023 09:00 AM AMBULATORY - MEDICINE [facility] October 11, 2023 01:30 PM AMBULATORY - PSYCHIATRY [facility] Dec 14, 2023 01:30 PM AMBULATORY - PSYCHIATRY [facility] Vital Signs: All taken on the encounter date This section contains inpatient and outpatient Vital Signs collected on the date of the Encounter. Date/Time Temperature Pulse Blood Pressure Respiratory Rate SP02 Pain Height Weight Body Mass Index Source Sep 05, 2023 11:12 AM 98.7 77 122/78 19 99 0 71 225 31 [facility] Social History: Smoking Status (Most current) and Tobacco Use (All prior to encounter date) This section includes the most current, and the historical, smoking and tobacco- related health factors from the [place] facility where the Encounter took place. Current Smoking Status This section includes the most current smoking, or tobacco-related health factor, from the [place] facility where the Encounter took place. Date/Time Current Smoking Status Comment Facil ity September 28, 2021 02:00 PM VA-TOBACCO DOESNT USE WI 30 MIN WAKEUP [facility] Tobacco Use History This section includes a history of the smoking, or tobacco-related health factors, that were collected on or before the date of the Encounter. The data comes from the [place] facility where the Encounter took place. 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 This section includes ALL of a patient's completed or amended VA Advance and Rescinded Directives. The entries below indicate that a directive exists for the patient, but an actual copy is not included with this document. The data comes from all [place] facilities. Date Advance Directives Provider Source May 23, 2007 ADVANCE DIRECTIVE DISCUSSION SAI CISSE [facility] Encounter Notes: All associated encounter notes This section contains the clinical notes associated to the Encounter. Date/Time Encounter Note(s) Provider Source Sep 05, 2023 04:49 PM ADDENDUM: LOCAL TITLE: Addendum STANDARD TITLE: ADDENDUM DATE OF NOTE: SEP 05, 2023@16:49:05 ENTRY DATE: SEP 05, 2023@16:49:06 AUTHOR: ANEG NJAERA EXP COSIGNER: URGENCY: STATUS: COMPLETED Alerting foreign exchange services manager Please notify patient that the inspire [facility] being managed by [facility]. Consult will be placed after the sleep study is completed. /jordan/ ANGE NAJERA NURSE PRACTITIONER Signed: 09/05/2023 16:50 Receipt Acknowledged By: 09/06/2023 08:30 /jordan/ MAUREEN MINOR RN, BSN Registered Nurse --- Original Document --- 09/05/23 PRIMARY CARE PROVIDER ESTABLISHED VISIT STL: ESTABLISHED PATIENT VISIT> REASON FOR VISIT: Evaluation of chronic medical conditions. Please note that this encounter note was dictated with computer voice recognition software, often unanticipated grammatical, syntax and other interpretive errors are inadvertently transcribed by the computer software. Please disregard these errors if noted. Patient is a 43-year-old male who presents for a routine visit. Chief Complaints: Sleep apnea and recurrent groin rash. Patient presents for a general care visit with two primary health concerns: a persistent groin rash and sleep apnea. The patient reports a diagnosis of moderate sleep apnea, around 2014 or 2015. A CPAP machine was initially provided but was recalled. Attempts to use a dental device were unsuccessful. He reportedly experiences extremely loud snoring, which disrupts sleep and affects concentration. He is interested in exploring alternative treatments, including the Inspire device. He reports a recurrent rash in the groin area for approximately two years. The rash is described as itchy and episodic. OTC jock itch cream has been used to manage symptoms with varying degrees of success. The patient is currently on ADHD medication, which has been notably beneficial. He's also take Wellbutrin for mood management and describe his mood as generally decent with occasional fluctuations. A history of acid reflux, managed by dietary modifications, specifically avoiding wine, coffee, and fried foods. He quit smoking around 2018, with minor relapses in 2019. He has a history of tinnitus and uses the sound of crickets at night to mask it. Denies chest pain, palpitations, dizziness, or dyspnea. SOURCE(S) OF HISTORY: Patient and chart review. 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 ALCOHOL: Minimally. ILLICIT DRUGS: No. RELATIONSHIP STATUS: LIVING SITUATION/SUPPORT SYSTEM: Self and kids. WORK: [employer]. ALLERGIES: Patient has answered NKA ALLERGY REVIEW: Allergy list reviewed and remained current. MEDICATIONS: Active and Recently Outpatient Medications (excluding Supplies): Active Outpatient Medications Status 1) AMPHETAMINE/DEXTROAMPHETAM INE 10MG TAB TAKE ONE ACTIVE TABLET BY MOUTH TWICE A DAY FOR ADHD 2) ATORVASTATIN CALCIUM 40MG TAB TAKE ONE-HALF TABLET BY ACTIVE MOUTH EVERY EVENING TO LOWER CHOLESTEROL 3) BUPROPION HCL 150MG 24HR SA TAB TAKE TWO TABLETS BY ACTIVE (S) MOUTH ONCE A DAY SWALLOW WHOLE - DO NOT CRUSH OR CHEW. Active Non-VA Medications Status 1) Non-VA NON-FORMULARY TAB ANTIDEPRESSANT BY MOUTH ONCE ACTIVE A DAY 4 Total Medications REVIEW OF SYSTEMS: See HPI for pertinent positives. All 10 systems reviewed. PHYSICAL EXAMINATION: VITALS (most recent, as listed in the electronic record): Temperature: 98.7 F [37.1 C] (09/05/2023 11:12) BP: 122/78 (09/05/2023 11:12) Pulse: 77 (09/05/2023 11:12) Resp: 19 (09/05/2023 11:12) Pulse: 99% (09/05/2023 11:12) Pain: 0 (09/05/2023 11:12) Weight: Measurement DT WEIGHT LB(KG)[BMI] 09/05/2023 11:12 225(102.06)[31*] 03/10/2023 10:01 220(99.79)[31*] General: Well appearing, Alert and no apparent distress. Ambulating independently. HEENT: Normocephalic, atraumatic. NECK: Neck: Supple, no carotid bruits, no JVD, no lymphadenopathy, no thyromegaly. LUNGS: Clear to auscultation bilaterally. No accessory muscle use. CARDIOVASCULAR: Regular rate and rhythm. No murmur. No JVD. ABDOMEN: Soft, non-tender and non-distended. No palpable masses. : deferred, not clinically indicated. EXTREMITIES: No edema. Normal peripheral pulses. Musculoskeletal: Gait steady. SKIN: erythematous, moist patches limited to intertriginous skin. NEUROLOGIC: Awake, alert, Oriented. No focal neurological deficits. PSYCHIATRIC: Cooperative. Appropriate mood and affect. No SI/HI. ASSESSMENT/PLAN: #. Sleep Apnea -Failed trial of CPAP and dental device. Interested in the Inspire device. -Sleep study ordered. E consult pulmonary for inspire eligibility. #. Intertriginous dermatitis - Recurrent rash in the groin area for the past couple of years, intermittent response to jrov-rat-[id number] jock itch cream. Rash is mildly visible currently. -ketoconazole ordered. -Advised daily cleaning of intertriginous skin with mild cleanser followed by drying of affected area, aeration of affected area when feasible, use of absorbent material or clothing to separate the skin fold. -Patient is nondiabetic. #. ADHD, stable. - Currently on ADHD medication, reports significant improvement on days with detailed work. - Continue current ADHD medication regimen. #. Depression, stable. - On Wellbutrin, reports decent mood with occasional fluctuations. - Continue Wellbutrin. Denies SI/HI. #. GERD, lifestyle controlled. - Reports good control of symptoms by avoiding triggers like wine, coffee, and fried foods. - Continue current management strategy. Monitor symptoms during follow-up visits. #. Hyperlipidemia. - Taking atorvastatin 20 mg daily, reports compliance. - Continue current atorvastatin regimen. Monitor cholesterol levels during follow-up visits. #. Tinnitus - uses cricket sounds at night to mask ringing. - Continue current management strategy. #. Obesity, continue lifestyle modification. #. Health Maintenance: -Reviewed recommended screening and Benefits. -Reviewed recommended immunizations. -Education provided on applicable Lifestyle modifications. -Labs: Next visit. -Reviewed Crisis hotline and encourage to us if needed. -Patient is aware of the 13/12 Veterans Crisis Line: , press 1 for Veterans. RETURN TO CLINIC:6 Months. #. Immunizations ADMINISTERED Immunization Series Date Facility Reaction Info COVID-19 (PFIZER), MRNA, LNP-S, * 3 08/16/2021 [facility] COVID-19 (PFIZER), MRNA, LNP-S, * [facility], LNP-S, * 1 08/22/2020 [facility] COVID-19 (PFIZER), MRNA, LNP-S, * 3 08/16/2021 [place]:[place] [facility] TDAP 04/15/2014 [facility] * <C> Immunization Date Facility Info COVID-19 (MODERNA), MRNA, LNP-S,* 03/10/2023 [facility] <I> INFLUENZA, UNSPECIFIED FORMULATI* 09/05/2023 [facility] <I> INFLUENZA, UNSPECIFIED FORMULATI* 03/10/2023 [facility] <I> PNEUMOCOCCAL CONJUGATE, UNSPECIF* 03/10/2023 [facility] <I> SUMMARY STATEMENT: Plan of care has been discussed with including expected therapeutic benefits and potential side effects of prescribed medication and treatments. Channing verbalizes understanding and is in agreement with the plan of care. Patient was instructed to keep all scheduled appointments and contact technician inventory specialist for any additional problems. Alcohol Use Screen (AUDIT-C): Alcohol Screen: SCREEN FOR ALCOHOL (AUDIT-C) An alcohol screening test (AUDIT-C) was negative (score=3). 1. How often did you have a drink containing alcohol in the past year? Consider a drink to be a 12 ounce can or bottle of regular beer, 8 ounces of malt liquor, a 5 ounce glass of table wine, or a 1.5 ounce shot of liquor (like scotch, gin, or vodka). Two to three times per week 2. How many drinks containing alcohol did you have on a typical day when you were drinking in the past year? One or two drinks 3. How often did you have six or more drinks on one occasion in the past year? Never Influenza Immunization: The patient declines to receive the recommended dose of seasonal influenza vaccine. Immunization: INFLUENZA, UNSPECIFIED FORMULATION Refusal Reason: PATIENT DECISION Patient refuses all immunization(s) in the FLU group Date Documented: 09/05/23 12:21 /jordan/ ANGE NAJERA NURSE PRACTITIONER Signed: 09/05/2023 12:31 ANGE NAJERA [facility] Sep 05, 2023 11:17 AM PRIMARY CARE NOTE: LOCAL TITLE: PRIMARY CARE PROVIDER ESTABLISHED VISIT ST STANDARD TITLE: PRIMARY CARE NOTE DATE OF NOTE: SEP 05, 2023@11:17 ENTRY DATE: SEP 05, 2023@11:17:46 AUTHOR: ANGE NAJERA EXP COSIGNER: URGENCY: STATUS: COMPLETED PRIMARY CARE PROVIDER ESTABLISHED VISIT ST Has ADDENDA ESTABLISHED PATIENT VISIT> REASON FOR VISIT: Evaluation of chronic medical conditions. Please note that this encounter note was dictated with computer voice recognition software, often unanticipated grammatical, syntax and other interpretive errors are inadvertently transcribed by the computer software. Please disregard these errors if noted. Patient is a 43-year-old male who presents for a routine visit. Chief Complaints: Sleep apnea and recurrent groin rash. Patient presents for a general care visit with two primary health concerns: a persistent groin rash and sleep apnea. The patient reports a diagnosis of moderate sleep apnea, around 2014 or 2015. A CPAP machine was initially provided but was recalled. Attempts to use a dental device were unsuccessful. He reportedly experiences extremely loud snoring, which disrupts sleep and affects concentration. He is interested in exploring alternative treatments, including the Inspire device. He reports a recurrent rash in the groin area for approximately two years. The rash is described as itchy and episodic. OTC jock itch cream has been used to manage symptoms with varying degrees of success. The patient is currently on ADHD medication, which has been notably beneficial. He's also take Wellbutrin for mood management and describe his mood as generally decent with occasional fluctuations. A history of acid reflux, managed by dietary modifications, specifically avoiding wine, coffee, and fried foods. He quit smoking around 2018, with minor relapses in 2019. He has a history of tinnitus and uses the sound of crickets at night to mask it. Denies chest pain, palpitations, dizziness, or dyspnea. SOURCE(S) OF HISTORY: Patient and chart review. 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 ALCOHOL: Minimally. ILLICIT DRUGS: No. RELATIONSHIP STATUS: LIVING SITUATION/SUPPORT SYSTEM: Self and kids. WORK: [employer]. ALLERGIES: Patient has answered NKA ALLERGY REVIEW: Allergy list reviewed and remained current. MEDICATIONS: Active and Recently Outpatient Medications (excluding Supplies): Active Outpatient Medications Status 1) AMPHETAMINE/DEXTROAMPHETAM INE 10MG TAB TAKE ONE ACTIVE TABLET BY MOUTH TWICE A DAY FOR ADHD 2) ATORVASTATIN CALCIUM 40MG TAB TAKE ONE-HALF TABLET BY ACTIVE MOUTH EVERY EVENING TO LOWER CHOLESTEROL 3) BUPROPION HCL 150MG 24HR SA TAB TAKE TWO TABLETS BY ACTIVE (S) MOUTH ONCE A DAY SWALLOW WHOLE - DO NOT CRUSH OR CHEW. Active Non-VA Medications Status 1) Non-VA NON-FORMULARY TAB ANTIDEPRESSANT BY MOUTH ONCE ACTIVE A DAY 4 Total Medications REVIEW OF SYSTEMS: See HPI for pertinent positives. All 10 systems reviewed. PHYSICAL EXAMINATION: VITALS (most recent, as listed in the electronic record): Temperature: 98.7 F [37.1 C] (09/05/2023 11:12) BP: 122/78 (09/05/2023 11:12) Pulse: 77 (09/05/2023 11:12) Resp: 19 (09/05/2023 11:12) Pulse: 99% (09/05/2023 11:12) Pain: 0 (09/05/2023 11:12) Weight: Measurement DT WEIGHT LB(KG)[BMI] 09/05/2023 11:12 225(102.06)[31*] 03/10/2023 10:01 220(99.79)[31*] General: Well appearing, Alert and no apparent distress. Ambulating independently. HEENT: Normocephalic, atraumatic. NECK: Neck: Supple, no carotid bruits, no JVD, no lymphadenopathy, no thyromegaly. LUNGS: Clear to auscultation bilaterally. No accessory muscle use. CARDIOVASCULAR: Regular rate and rhythm. No murmur. No JVD. ABDOMEN: Soft, non-tender and non-distended. No palpable masses. : deferred, not clinically indicated. EXTREMITIES: No edema. Normal peripheral pulses. Musculoskeletal: Gait steady. SKIN: erythematous, moist patches limited to intertriginous skin. NEUROLOGIC: Awake, alert, Oriented. No focal neurological deficits. PSYCHIATRIC: Cooperative. Appropriate mood and affect. No SI/HI. ASSESSMENT/PLAN: #. Sleep Apnea -Failed trial of CPAP and dental device. Interested in the Inspire device. -Sleep study ordered. E consult pulmonary for inspire eligibility. #. Intertriginous dermatitis - Recurrent rash in the groin area for the past couple of years, intermittent response to iuzb-yqj-yxkjlxj jock itch cream. Rash is mildly visible currently. -ketoconazole ordered. -Advised daily cleaning of intertriginous skin with mild cleanser followed by drying of affected area, aeration of affected area when feasible, use of absorbent material or clothing to separate the skin fold. -Patient is nondiabetic. #. ADHD, stable. - Currently on ADHD medication, reports significant improvement on days with detailed work. - Continue current ADHD medication regimen. #. Depression, stable. - On Wellbutrin, reports decent mood with occasional fluctuations. - Continue Wellbutrin. Denies SI/HI. #. GERD, lifestyle controlled. - Reports good control of symptoms by avoiding triggers like wine, coffee, and fried foods. - Continue current management strategy. Monitor symptoms during follow-up visits. #. Hyperlipidemia. - Taking atorvastatin 20 mg daily, reports compliance. - Continue current atorvastatin regimen. Monitor cholesterol levels during follow-up visits. #. Tinnitus - uses cricket sounds at night to mask ringing. - Continue current management strategy. #. Obesity, continue lifestyle modification. #. Health Maintenance: -Reviewed recommended screening and Benefits. -Reviewed recommended immunizations. -Education provided on applicable Lifestyle modifications. -Labs: Next visit. -Reviewed Crisis hotline and encourage to us if needed. -Patient is aware of the 13/12 Veterans Crisis Line: , press 1 for Veterans. RETURN TO CLINIC:6 Months. #. Immunizations ADMINISTERED Immunization Series Date Facility Reaction Info COVID-19 (PFIZER), MRNA, LNP-S, * 3 [facility]/2021 [facility] COVID-19 (PFIZER), MRNA, LNP-S, * 2 09/15/2020 [facility] COVID-19 (PFIZER), MRNA, LNP-S, * 1 08/22/2020 [facility] COVID-19 (PFIZER), MRNA, LNP-S, * 3 08/16/2021 [facility] IIS TDAP 04/15/2014 [facility] * <C> Immunization Date Facility Info COVID-19 (MODERNA), MRNA, LNP-S,* 03/10/2023 [facility] <I> INFLUENZA, UNSPECIFIED FORMULATI* 09/05/2023 [facility] <I> INFLUENZA, UNSPECIFIED FORMULATI* 03/10/2023 [facility] <I> PNEUMOCOCCAL CONJUGATE, UNSPECIF* 03/10/2023 [facility] <I> SUMMARY STATEMENT: Plan of care has been discussed with including expected therapeutic benefits and potential side effects of prescribed medication and treatments. verbalizes understanding and is in agreement with the plan of care. Patient was instructed to keep all scheduled appointments and contact technician inventory specialist for any additional problems. Alcohol Use Screen (AUDIT-C): Alcohol Screen: SCREEN FOR ALCOHOL (AUDIT-C) An alcohol screening test (AUDIT-C) was negative (score=3). 1. How often did you have a drink containing alcohol in the past year? Consider a drink to be a 12 ounce can or bottle of regular beer, 8 ounces of malt liquor, a 5 ounce glass of table wine, or a 1.5 ounce shot of liquor (like scotch, gin, or vodka). Two to three times per week 2. How many drinks containing alcohol did you have on a typical day when you were drinking in the past year? One or two drinks 3. How often did you have six or more drinks on one occasion in the past year? Never Influenza Immunization: The patient declines to receive the recommended dose of seasonal influenza vaccine. Immunization: INFLUENZA, UNSPECIFIED FORMULATION Refusal Reason: PATIENT DECISION Patient refuses all immunization(s) in the FLU group Date Documented: 09/05/23 12:21 /carl NAJERA NURSE PRACTITIONER Signed: 09/05/2023 12:31 09/05/2023 ADDENDUM STATUS: COMPLETED Alerting foreign exchange services manager Please notify patient that the inspire is being managed by [facility]. Consult will be placed after the sleep study is completed. /carl NAJERA NURSE PRACTITIONER Signed: 09/05/2023 16:50 Receipt Acknowledged By: * AWAITING SIGNATURE * MAUREEN MINOR CHIDIMMA N [facility] Sep 05, 2023 11:13 AM NURSING NOTE: LOCAL TITLE: V15 PACT FACE TO FACE NOTE ST STANDARD TITLE: NURSING NOTE DATE OF NOTE: SEP 05, 2023@11:13 ENTRY DATE: SEP 05, 2023@11:13:05 AUTHOR: LULU DELACRUZ EXP COSIGNER: URGENCY: STATUS: COMPLETED Provider Visit: Patient Identifiers : Full Name Date of Reason for visit: Established Follow-Up Mode of Arrival: Ambulatory Allergy Review: Patient has answered NKA Allergy list reviewed and remains current. Recent Vital Signs: Temperature: 98.7 F [37.1 C] (09/05/2023 11:12) Pulse: 77 (09/05/2023 11:12) Respiration: 19 (09/05/2023 11:12) B/P: 122/78 (09/05/2023 11:12) Pain: 0 (09/05/2023 11:12) Wt: 225 lb [102.06 kg] (09/05/2023 11:12) Ht: 71 in [180.3 cm] (09/05/2023 11:12) BMI: 31.4 POX: 99% (09/05/2023 11:12) Blood sugar glucometer reading: N/A Would you like to discuss any personal problem, family problem, alcohol use, drug use, or a mental or emotional illness? No My [facility] ([facility]), please select appointment type: Face to face: Yes-Do you have an upgraded (Premium) account which gives you the added benefit of Secure Messaging with your Primary Care Provider and refilling your prescriptions online? Nursing Assessment of Current Patient Complaints: Other: 43 year old male. Pt is alert and ambulatory.Pt is able to make hisa needs known and has no complaints of pain. Pt ie requesting a sleep study. Contact provided Primary Care phone number and encouraged to call if any questions or concerns. Review that after hours nurse line [phone] and emergency room are available 13/12 for patient use. Contact verbalized good understanding. Homelessness/Food Insecurity Screen: In the past 2 months, have you been living in stable housing that you own, rent, or stay in as part of a household? Yes - Living in stable housing. Are you worried or concerned that in the next 2 months you may NOT have stable housing that you own, rent, or stay in as part of a household? No - Not worried about housing near future The reports the following: Within the past 12 months, you worried whether your food would run out before you got money to buy more. Never true Within the past 12 months, the food you bought just didn't last and you didn't have money to get more. Never true Influenza Immunization: The patient declines to receive the recommended dose of seasonal influenza vaccine. Immunization: INFLUENZA, UNSPECIFIED FORMULATION Refusal Reason: PATIENT DECISION Patient refuses all immunization(s) in the FLU group Date Documented: 09/05/23 11:16 /jordan/ LULU DELACRUZ Licensed Practical Nurse Signed: 09/05/2023 11:16 LULU DELACRUZ [facility]
--- OUTSIDE RECORDS SUMMARY | 2024-08-20 08:17 | XMS_ITS | Clinical Summary ---
Author Organization [facility] Address [address] 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 This disclosure is being madepursuant to the Care Everywhere program and may not contain all information available regarding this patient. Last updated 18.[facility] [employer] Social History Tobacco Use Types Packs/Day Years Used Date Smoking Tobacco: Never Assessed Sex and Gender Information Value Date Recorded Sex Assigned at Not on file Gender Identity Not on file Sexual Orientation Not on file Plan of Treatment Health Maintenance Due Date Last Done Comments LIPID TESTING 1980 HIV SCREENING 1995 HEPATITIS C SCREENING 03/05/1998 DTAP/TDAP/TD VACCINES (1 - Tdap) 1999 HEPATITIS B VACCINE (1 of 3 - 19+ 3-dose series) 1999 COVID-19 VACCINE ( - 2023-2 5 season) 2024 INFLUENZA VACCINE (#1) 2024 DEPRESSION SCREENING 05/23/2024 ZOSTER VACCINE (1 of 2) 2030 HIB VACCINE Aged Out No longer eligi ble based on patient's age to complete this topic HPV VACCINE Aged Out No longer eligi ble based on patient's age to complete this topic MENINGOCOCCAL (Group B) VACC INE SHARED DECISION-MAKING Aged Out No longer eligibl e based on patient's age to complete this topic MENINGOCOCCAL GROUPS A/C/Y/W VACCINE Aged Out No longer eligible b ased on patient's age to complete this topic PNEUMOCOCCAL VACCINE Aged Out No long er eligible based on patient's age to complete this topic
--- OUTSIDE RECORDS SUMMARY | 2024-08-20 08:18 | XMS_ITS | Clinical Summary ---
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 Gender Identity Not on file Sexual Orientation Not on file Plan of Treatment Health Maintenance Due Date Last Done Comments Hepatitis C Virus (HCV) Screening 1980 TdaP Immunization 1980 Hepatitis B Immunization (1 of 3 - 19+ 3-dose series) 1999 Influenza Immunization (#1) 2024 SARS-COV-2 Immunization (3 - 2023-25 season) 2024 09/15/2020, 08/22/2020 Respiratory Syncytial Virus (RSV) Immunization (Adult) (1 - 1-dose 75+ series) 2055 Meningococcal Immunization (ACWY) Aged Out No longer eligible b ased on patient's age to complete this topic Pneumococcal Immunization Combined Aged Out No longer eligible b ased on patient's age to complete this topic Rotavirus Immunization Aged Out No lo nger eligible based on patient's age to complete this topic
--- OUTSIDE RECORDS SUMMARY | 2024-08-20 08:18 | XMS_ITS | Continuity of Care Document ---
Author Name [facility] Organization [facility] Care Team Providers Care Component Prep Operator Name Role Phone [facility] Unavailable Unavailable Problems Combined list of problems from Department of Defense and Veterans Affairs facilities. It does not include entries that were removed or entered in error. Problem Status Onset Date Problem Type Date of Resolution Comments Source Acne (ICD-9-CM 706.1) Active Condition [facility] ALCOHOL ABUSE Active Condition [facility] Attention deficit hyperactivity disorder, predominantly inattentive type Active Condition [facility] Chronic rhinitis Active Condition [facility] ([facility]) Depression Active Condition [facility] DEPRESSIVE DISORDER NOS Active Condition [facility] Diseases due to Viruses and Chlamydiae, other Specified Viral Warts (ICD-9-CM 07 Active Condition [facility] Exposure to potentially hazardous substance Active Condition [facility] Generalized anxiety disorder Active Condition [facility] ([facility]) GERD - Gastro-Esophageal Reflux Disease (SCT 955105932) Active Condition [facility] Headache Active Condition [facility] History of traumatic brain injury Active Condition [facility] Hypercholesterolemia Active Condition [facility] ([facility]) Hyperlipidemia Active Condition [facility]omnia Active Condition [facility] Intertrigo Active Condition [facility] Mixed hyperlipidemia * (ICD-9-CM 272.2) Active Condition [facility] Motor tic disorder Active Condition [facility] ([facility]) NEOPLASM OF UNCERTAIN BEHAVIOR Active Condition [facility] Nondependent alcohol abuse in remission Active Condition [facility] Obesity Active Condition [facility] Obstructive Sleep Apnea Syndrome (SCT 57362796) Active Condition [facility] Past history of procedure Active Condition Dec 14, 2019 Entered By: BRENDON OCHOA Comment: childhood lithotripsyJul 2019 Entered By: BRENDON OCHOA Comment: 06/2016 nasal septoplasty and sinus surgery [facility] Posttraumatic stress disorder Active Condition [facility] PTSD - Post-Traumatic Stress Disorder ([facility] [id number]) Active Condition [facility] Recurrent major depression Active Condition [facility] ([place]) Tobacco User ([facility] [id number]) Active Condition [facility] Diagnosis: ICD-10-CM G47.33 Obstructive sleep apnea (adult) (pediatric) Active Diagnosis [facility] Diagnosis: ICD-10-CM M25.561 Pain in right knee Active Diagnosis [facility] Diagnosis: ICD-10-CM F90.0 Attn-defct hyperactivity disorder, predom inattentive type Active Diagnosis [facility] Diagnosis: ICD-10-CM F43.10 Post-traumatic stress disorder, unspecified Active Diagnosis [facility] Diagnosis: ICD-10-CM L30.4 Erythema intertrigo Active Diagnosis [facility] Diagnosis: ICD-10-CM J02.9 Acute pharyngitis, unspecified Active Diagnosis [facility] Diagnosis: ICD-10-CM Z04.9 Encounter for examination and observation for unsp reason Active Diagnosis [facility] Diagnosis: ICD-10-CM F06.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 Medication Details Route Status Patient Instructions Prescription Expires Prescription Number Last Dispense Date Ordering Provider Order Date Order Qty Source AMPHETAMINE /DEXTROAMPH ETAMINE 10MG TAB TAKE ONE TABLET BY MOUTH TWICE A DAY ORAL SUSPEND ED 09/07/[id number] YOKO PHILLIPS 2024 60 [facility] AMPHETAMINE /DEXTROAMPH ETAMINE 10MG TAB TAKE ONE TABLET BY MOUTH TWICE A DAY FOR ADHD ORAL DISCONT INUED 08/25/2024 [id number] YOKO PHILLIPS 2024 60 [facility] AMPHETAMINE /DEXTROAMPH ETAMINE 10MG TAB TAKE ONE TABLET BY MOUTH TWICE A DAY FOR ADHD ORAL 05/10/[id number] 4 DEREK PIMENTEL 2023 60 [facility] AMPHETAMINE /DEXTROAMPH ETAMINE 10MG TAB TAKE ONE TABLET BY MOUTH TWICE A DAY ORAL 01/13/[id number] 4 JOAN DELACRUZ 2023 60 [facility] AMPHETAMINE /DEXTROAMPH ETAMINE 10MG TAB TAKE ONE TABLET BY MOUTH TWICE A DAY ORAL 11/10/[id number] 4 JOAN DELACRUZ 2023 60 [facility] AMPHETAMINE /DEXTROAMPH ETAMINE 10MG TAB TAKE ONE TABLET BY MOUTH TWICE A DAY FOR ADHD ORAL 09/15/2023 [id number] YOKO PHILLIPS ERIK 2023 60 [facility] ATORVASTATI N CA 40MG TAB TAKE ONE-HALF TABLET BY MOUTH EVERY EVENING TO LOWER CHOLESTE ROL ORAL ACTIVE 04/11/2025 [id number] GEENA BAIRD 2023 45 [facility] ATORVASTATI N CA 40MG TAB TAKE ONE-HALF TABLET BY MOUTH EVERY EVENING TO LOWER CHOLESTE ROL ORAL DISCONT INUED 03/21/2024 [id number] ME RAVIN TTISA 2022 45 [facility] BUPROPION HCL 150MG 24HR TAB,SA TAKE TWO TABLETS BY MOUTH ONCE A DAY SWALLOW WHOLE - DO NOT CRUSH OR CHEW. ORAL ACTIVE 04/26/2025 [id number] 5 JOAN DELACRUZ 2023 180 [facility] BUPROPION HCL 150MG 24HR TAB,SA TAKE TWO TABLETS BY MOUTH ONCE A DAY SWALLOW WHOLE - DO NOT CRUSH OR CHEW. ORAL DISCONT INUED 10/11/2024 [id number] 4 JOAN DELACRUZ CHIQUITA 2023 180 [facility] BUPROPION HCL 150MG 24HR TAB,SA TAKE TWO TABLETS BY MOUTH ONCE A DAY SWALLOW WHOLE - DO NOT CRUSH OR CHEW. ORAL DISCONT INUED 08/16/2024 [id number] YOKO PHILLIPS 2023 180 [facility] BUPROPION HCL 150MG 24HR TAB,SA TAKE TWO TABLETS BY MOUTH ONCE A DAY SWALLOW WHOLE - DO NOT CRUSH OR CHEW. ORAL DISCONT INUED 01/05/2024 [id number] 4 NUBIAJOAN CHIQUITA 2022 180 [facility] BUSPIRONE HCL 10MG TAB TAKE ONE TABLET BY MOUTH TWICE A DAY FOR ANXIETY DO NOT TAKE WITH GRAPEFRU IT JUICE. ORAL DISCONT INUED BY PROVIDE R 10/11/2024 [id number] DELACRUZJOAN CHIQUITA 2023 180 [facility] DOXYCYCLINE MONOHYDRATE 100MG CAP TAKE ONE CAPSULE BY MOUTH TWICE A DAY TAKE UNTIL FINISHED . AVOID SUN EXPOSURE WHILE TAKING. ORAL DISCONT INUED BY PROVIDE R 04/22/2024 [id number] 4 CHIDI MONTILLA 2023 20 [facility] FLUCONAZOLE 150MG TAB TAKE ONE TABLET BY MOUTH ONE-TIME FOR FUNGAL INFECTIO N ORAL ACTIVE 04/11/2025 [id number] 4 GEENA BAIRD 2023 1 [facility] IMIQUIMOD 5% CREAM,TOP,P KT,0.25GM APPLY TO AFFECTED AREA ON SKIN NON STANDARD TOPICA L ACTIVE ROMA GALEAS 2006 [facility] KETOCONAZOL E 2% CREAM,TOP APPLY LIGHTLY TO AFFECTED AREA(S) TWICE A DAY (EXTERNA L USE ONLY) TOPICA L 12/04/2023 [id number] Pinky NAJERA HIDIMMA N 2023 60 [facility] MELOXICAM 15MG TAB TAKE ONE TABLET BY MOUTH ONCE A DAY ORAL DISCONT INUED BY SILVER Parker 03/24/2025 [id number] 4 CHIDI MONTILLA B 2023 30 [facility] MULTIVITAMI NS W/MINERALS CAP/TAB TAKE ONE TABLET BY MOUTH EVERY DAY ORAL ACTIVE YOKO GALEAS S 2007 [facility] NON-FORMULA RY TAB TAKE ANTIDEPR ESSANT BY MOUTH ONCE A DAY ORAL ACTIVE PACE,VICT OR M 2019 [facility] NYSTATIN [id number] M CREAM,TOP APPLY LIGHTLY TO AFFECTED AREA(S) THREE TIMES A DAY FOR FUNGAL SKIN INFECTIO N - TOPICAL USE ONLY. TOPICA L ACTIVE 04/11/2025 [id number] 4 GEENA BAIRD 2023 15 [facility] Immunizations Combined list of available immunizations from the Department of Defense and Veterans Affairs facilities. Immunization Series Date Given Administered By Site Reaction Lot Number CVX Code Drug Printer Slotter Operator Status Comments Source HEP B, ADULT 1 2023 43 complet ed [facility] COVID-19 ([facility]), MRNA, LNP-S, PF, 30 MCG/0.3 ML DOSE 3 2021 208 complet ed [facility] COVID-19 (PFIZER), MRNA, LNP-S, PF, 30 MCG/0.3 ML DOSE, EDDY-SUCROSE (AGES 12+ YEARS) 3 2021 217 complet ed [facility] COVID-19 (Enplug), MRNA, LNP-S, PF, 30 MCG/0.3 ML DOSE 2 2020 208 complet ed [facility] COVID-19 ([employer]), MRNA, LNP-S, PF, 30 MCG/0.3 ML DOSE 1 2020 208 complet ed [facility] INFLUENZA, UNSPECIFIED FORMULATION 2014 88 complet ed [facility]. [place] [facility] INFLUENZA, UNSPECIFIED FORMULATION 2013 88 complet ed [facility] TETANUS DIPHTHERIA PERTUSSIS (Tdap) (HISTORICAL) 2013 115 complet ed [facility] TD (ADULT), 2 LF TETANUS TOXOID, PRESERVATIVE FREE, ADSORBED 2013 09 complet ed N. [place] [facility] INFLUENZA, UNSPECIFIED FORMULATION 2006 88 complet ed [facility] TD(ADULT) UNSPECIFIED FORMULATION 1999 139 complet ed [facility] Results Combined list of recent chemistry, hematology and other laboratory results from Department of Defense and Veterans Affairs, ranging from 15 months to all on record, depending upon the facility. Order Name Results Value Reference Range Date Interpretation Specimen Comments Source GC & CHLAMYDI A PCR (STL-PB) NEISSERIA GONORRHOEA E DNA [PRESENCE] IN URINE BY BIBI WITH PROBE DETECTION Not Detected 03/23 Specimen Type: URINE Comment: This is a qualitative real-time PCR test for the detection and differentia tion of genomic DNA from Chlamydia trachomatis (CT) and Neisseria gonorrhoeae (NG). A negative result does not preclude infection with the agent(s) tested and should not be used as the sole basis for treatment or other patient management decisions. If negative, but symptoms persist, consider re-testing. A positive test does not necessarily indicate the presence of viable organisms, following bacterial culture (for NG) to recover the organism for further characteriz ation and susceptibil ity testing. All results must be combined with clinical observation s, patient history, and epidemiolog ical information for final interpretat ion. Ordering Provider: NHI MONTILLA Report Released Date/Time: Mar 23, 2024 10:34 AM Reporting Lab: [facility] [address] [address] Performing Lab: [facility] [address] [facility] [address] [facility] GC & CHLAMYDI A PCR (STL-PB) CHLAMYDIA SP DNA [PRESENCE] IN URINE BY BIBI WITH PROBE DETECTION Not Detected 03/23 Specimen Type: URINE Comment: This is a qualitative real-time PCR test for the detection and differentia tion of genomic DNA from Chlamydia trachomatis (CT) and Neisseria gonorrhoeae (NG). A negative result does not preclude infection with the agent(s) tested and should not be used as the sole basis for treatment or other patient management decisions. If negative, but symptoms persist, consider re-testing. A positive test does not necessarily indicate the presence of viable organisms, following bacterial culture (for NG) to recover the organism for further characteriz ation and susceptibil ity testing. All results must be combined with clinical observation s, patient history, and epidemiolog ical information for final interpretat ion. Ordering Provider: NHI MONTILLA Report Released Date/Time: Mar 23, 2024 10:34 AM Reporting Lab: [facility] [address] [address] Performing Lab: [address] [address] [facility] TRICHOMO FARIBA PCR (STL-PB) TRICHOMONA S VAGINALIS RRNA [PRESENCE] IN URINE BY BIBI WITH PROBE DETECTION Not Detected 03/23 Specimen Type: URINE Comment: Qualitative real-time PCR test to detect Trichomonas vaginalis genomic DNA. A negative result does not preclude infection with the agent(s) tested and should not be used as the sole basis for treatment or other patient management decisions. If negative, but symptoms persist, consider re-testing. A positive test does not necessarily indicate the presence of viable organisms. All results must be combined with clinical observation s, patient history, and epidemiolog ical information for final interpretat ion. Ordering Provider: NHI MONTILLA Report Released Date/Time: Mar 23, 2024 10:34 AM Reporting Lab: [facility] [address] [address] Performing Lab: [address] [address] [facility] RAPID PLASMA REAGIN (RPR) REAGIN AB [PRESENCE] IN SERUM BY RPR NONREACT ALMA 03/23 Specimen Type: SERUM No comment entered. Ordering Provider: NHI MONTILLA Report Released Date/Time: Mar 23, 2024 10:34 AM Reporting Lab: [facility] [address] [address] Performing Lab: [place] [address] [address] [facility] HIV COMBO FOURTH GENERATI ON (L) HIV 1+2 AB+HIV1 P24 AG [PRESENCE] IN SERUM OR PLASMA BY IMMUNOASSA Y Nonreact alma 03/23 Specimen Type: SERUM No comment entered. Ordering Provider: NHI MONTILLA Report Released Date/Time: Mar 23, 2024 10:34 AM Reporting Lab: [place] [address] [address] Performing Lab: [address] [phone] HEP C Ab HCV Ab (L) HEPATITIS C VIRUS AB [PRESENCE] IN SERUM Nonreact alma 03/23 Specimen Type: SERUM No comment entered. Ordering Provider: NHI MONTILLA Report Released Date/Time: Mar 23, 2024 10:34 AM Reporting Lab: [place] [address] [address] Performing Lab: [phone] [place] [address] COVID-19 DIAGNOST IC (FLU/RSV )([facility]) INFLUENZA VIRUS A AG [PRESENCE] IN NASOPHARYN X Negative 05/02 Specimen Type: NASOPHARYNX Comment: Qualitative real-time PCR and RT-PCR to detect viral RNA. A negative result does not preclude infection with the agent(s) tested and should not be used as the sole basis for treatment or other patient management decisions. If negative, but symptoms persist, consider re-testing. Positive results do not rule out bacterial infection or co-infectio n with other viruses. All results must be combined with clinical observation s, patient history, and epidemiolog ical information for final interpretat ion. Ordering Provider: AHMET AMAYA Report Released Date/Time: May 02, 2023 04:58 PM Reporting Lab: [address] [address] Performing Lab: [address] [address] [facility] COVID-19 DIAGNOST IC (FLU/RSV )(STL) INFLUENZA B Negative 05/02 Specimen Type: NASOPHARYNX Comment: Qualitative real-time PCR and RT-PCR to detect viral RNA. A negative result does not preclude infection with the agent(s) tested and should not be used as the sole basis for treatment or other patient management decisions. If negative, but symptoms persist, consider re-testing. Positive results do not rule out bacterial infection or co-infectio n with other viruses. All results must be combined with clinical observation s, patient history, and epidemiolog ical information for final interpretat ion. Ordering Provider: AHMET AMAYA Report Released Date/Time: May 02, 2023 04:58 PM Reporting Lab: [address] [address] Performing Lab: [address] [address] [facility] COVID-19 DIAGNOST IC (FLU/RSV )(ST) SARS-COV-2 (COVID-19) RNA [PRESENCE] IN RESPIRATOR Y SPECIMEN BY BIBI WITH PROBE DETECTION Not Detected 05/02 Specimen Type: NASOPHARYNX Comment: Qualitative real-time PCR and RT-PCR to detect viral RNA. A negative result does not preclude infection with the agent(s) tested and should not be used as the sole basis for treatment or other patient management decisions. If negative, but symptoms persist, consider re-testing. Positive results do not rule out bacterial infection or co-infectio n with other viruses. All results must be combined with clinical observation s, patient history, and epidemiolog ical information for final interpretat ion. Ordering Provider: AHMET AMAYA Report Released Date/Time: May 02, 2023 04:58 PM Reporting Lab: [address] [address] Performing Lab: [address] [address] [facility] COVID-19 DIAGNOST IC (FLU/RSV )(STL) RSV (Cepheid) NEGATIVE 05/02 Specimen Type: NASOPHARYNX Comment: Qualitative real-time PCR and RT-PCR to detect viral RNA. A negative result does not preclude infection with the agent(s) tested and should not be used as the sole basis for treatment or other patient management decisions. If negative, but symptoms persist, consider re-testing. Positive results do not rule out bacterial infection or co-infectio n with other viruses. All results must be combined with clinical observation s, patient history, and epidemiolog ical information for final interpretat ion. Ordering Provider: AHMET AMAYA Report Released Date/Time: May 02, 2023 04:58 PM Reporting Lab: [address] [address] Performing Lab: [address] [address] [facility] COMPREHE NSIVE METABOLI C PANEL CREATININE [MASS/VOLU ME] IN SERUM OR PLASMA 1.16 mg/dL 0.7 - 1.3 05/02 Specimen Type: PLASMA Comment: No hemolysis noted. Ordering Provider: AHMET AMAYA Report Released Date/Time: May 02, 2023 04:58 PM Reporting Lab: [address] [address] Performing Lab: [address] [address] [facility] COMPREHE NSIVE METABOLI C PANEL UREA NITROGEN [MASS/VOLU ME] IN SERUM OR PLASMA 9.2 mg/dL 9.0 - 25.0 05/02 Specimen Type: PLASMA Comment: No hemolysis noted. Ordering Provider: AHMET AMAYA Report Released Date/Time: May 02, 2023 04:58 PM Reporting Lab: [address] [address] Performing Lab: [address] [address] [facility] COMPREHE NSIVE METABOLI C PANEL GLUCOSE [MASS/VOLU ME] IN SERUM OR PLASMA 96 mg/dL 72 - 99 05/02 Specimen Type: PLASMA Comment: No hemolysis noted. Ordering Provider: AHMET AMAYA Report Released Date/Time: May 02, 2023 04:58 PM Reporting Lab: [facility] [address] [address] Performing Lab: [facility] [address] [address] [facility] COMPREHE NSIVE METABOLI C PANEL SODIUM [MOLES/VOL UME] IN SERUM OR PLASMA 136 meq/L 136 - 145 05/02 Specimen Type: PLASMA Comment: No hemolysis noted. Ordering Provider: AHMET AMAYA Report Released Date/Time: May 02, 2023 04:58 PM Reporting Lab: [place] [address] [address] Performing Lab: [place] [address] [address] [facility] COMPREHE NSIVE METABOLI C PANEL POTASSIUM [MOLES/VOL UME] IN SERUM OR PLASMA 3.9 meq/L 3.5 - 5 05/02 Specimen Type: PLASMA Comment: No hemolysis noted. Ordering Provider: AHMET AMAYA Report Released Date/Time: May 02, 2023 04:58 PM Reporting Lab: [address] [address] Performing Lab: [facility] [address] [address] [facility] COMPREHE NSIVE METABOLI C PANEL CHLORIDE [MOLES/VOL UME] IN SERUM OR PLASMA 105 meq/L 98 - 107 05/02 Specimen Type: PLASMA Comment: No hemolysis noted. Ordering Provider: AHMET AMAYA Report Released Date/Time: May 02, 2023 04:58 PM Reporting Lab: [facility] [address] [address] Performing Lab: [facility] [address] [address] [facility] COMPREHE NSIVE METABOLI C PANEL CARBON DIOXIDE, TOTAL [MOLES/VOL UME] IN SERUM OR PLASMA 21 meq/L 22 - 31 05/02 L Specimen Type: PLASMA Comment: No hemolysis noted. Ordering Provider: AHMET AMAYA Report Released Date/Time: May 02, 2023 04:58 PM Reporting Lab: [place] [address] [address] Performing Lab: [place] [address] [address] [facility] COMPREHE NSIVE METABOLI C PANEL CALCIUM [MASS/VOLU ME] IN SERUM OR PLASMA 9.0 mg/dL 8.4 - 10.4 05/02 Specimen Type: PLASMA Comment: No hemolysis noted. Ordering Provider: AHMET AMAYA Report Released Date/Time: May 02, 2023 04:58 PM Reporting Lab: [place] [address] [address] Performing Lab: [place] [address] [address] [facility] COMPREHE NSIVE METABOLI C PANEL PROTEIN [MASS/VOLU ME] IN SERUM OR PLASMA 7.2 g/dL 6 - 8.6 05/02 Specimen Type: PLASMA Comment: No hemolysis noted. Ordering Provider: AHMET AMAYA Report Released Date/Time: May 02, 2023 04:58 PM Reporting Lab: [place] [address] [address] [facility] [address] Performing Lab: [place] [address] [address] [facility] COMPREHE NSIVE METABOLI C PANEL ALBUMIN [MASS/VOLU ME] IN SERUM OR PLASMA 4.3 g/dL 3.4 - 5 05/02 Specimen Type: PLASMA Comment: No hemolysis noted. Ordering Provider: AHMET AMAYA Report Released Date/Time: May 02, 2023 04:58 PM Reporting Lab: [facility] [address] Performing Lab: [place] [address] [address] [facility] COMPREHE NSIVE METABOLI C PANEL BILIRUBIN. TOTAL [MASS/VOLU ME] IN SERUM OR PLASMA 1.7 mg/dL 0.2 - 1.2 05/02 H Specimen Type: PLASMA Comment: No hemolysis noted. Ordering Provider: AHMET AMAYA Report Released Date/Time: May 02, 2023 04:58 PM Reporting Lab: [address] [address] Performing Lab: [address] [address] [facility] COMPREHE NSIVE METABOLI C PANEL ALKALINE PHOSPHATAS E [ENZYMATIC ACTIVITY/V OLUME] IN SERUM OR PLASMA 89 U/L 40 - 150 05/02 Specimen Type: PLASMA Comment: No hemolysis noted. Ordering Provider: AHMET AMAYA Report Released Date/Time: May 02, 2023 04:58 PM Reporting Lab: [address] [address] Performing Lab: [place] [address] [address] [facility] COMPREHE NSIVE METABOLI C PANEL ASPARTATE AMINOTRANS FERASE [ENZYMATIC ACTIVITY/V OLUME] IN SERUM OR PLASMA 15 U/L 5 - 34 05/02 Specimen Type: PLASMA Comment: No hemolysis noted. Ordering Provider: AHMET AMAYA Report Released Date/Time: May 02, 2023 04:58 PM Reporting Lab: [address] [address] Performing Lab: [address] [address] [facility] COMPREHE NSIVE METABOLI C PANEL ALANINE AMINOTRANS FERASE [ENZYMATIC ACTIVITY/V OLUME] IN SERUM OR PLASMA 19 U/L 8 - 40 05/02 Specimen Type: PLASMA Comment: No hemolysis noted. Ordering Provider: AHMET AMAYA Report Released Date/Time: May 02, 2023 04:58 PM Reporting Lab: [address] [address] Performing Lab: [address] [address] [facility] COMPREHE NSIVE METABOLI C PANEL GLOMERULAR FILTRATION RATE/1.73 SQ M.PREDICTE D [VOLUME RATE/AREA] IN SERUM, PLASMA OR BLOOD BY CREATININE -BASED FORMULA (CKD-EPI 2020) 80.2 60 05/02 Specimen Type: PLASMA Comment: No hemolysis noted. Ordering Provider: AHMET AMAYA Report Released Date/Time: May 02, 2023 04:58 PM Reporting Lab: [address] [address] Performing Lab: [address] [address] [facility] CBC LEUKOCYTES [#/VOLUME] IN BLOOD BY AUTOMATED COUNT 20.3 10*3/uL 3.6 - 11.2 05/02 H Specimen Type: BLOOD No comment entered. Ordering Provider: AHMET AMAYA Report Released Date/Time: May 02, 2023 04:58 PM Reporting Lab: [address] [address] Performing Lab: [address] [address] [facility] CBC ERYTHROCYT ES [#/VOLUME] IN BLOOD BY AUTOMATED COUNT 4.64 10*6/uL 4.10 - 5.70 05/02 Specimen Type: BLOOD No comment entered. Ordering Provider: AHMET AMAYA Report Released Date/Time: May 02, 2023 04:58 PM Reporting Lab: [address] [address] Performing Lab: [address] [address] [facility] CBC HEMOGLOBIN [MASS/VOLU ME] IN BLOOD 14.4 g/dL 13.1 - 16.8 05/02 Specimen Type: BLOOD No comment entered. Ordering Provider: AHMET AMAYA Report Released Date/Time: May 02, 2023 04:58 PM Reporting Lab: [address] [address] Performing Lab: [address] [phone] [place] [address] CBC HEMATOCRIT [VOLUME FRACTION] OF BLOOD 42.5 38.2 - 48.4 05/02 Specimen Type: BLOOD No comment entered. Ordering Provider: AHMET AMAYA Report Released Date/Time: May 02, 2023 04:58 PM Reporting Lab: [address] [address] Performing Lab: [address] [phone] [place] [address] CBC MCV [ENTITIC VOLUME] BY AUTOMATED COUNT 91.6 fL 80.0 - 100.0 05/02 Specimen Type: BLOOD No comment entered. Ordering Provider: AHMET AMAYA Report Released Date/Time: May 02, 2023 04:58 PM Reporting Lab: [address] [address] Performing Lab: [address] [address] [facility] CBC MCH [ENTITIC MASS] BY AUTOMATED COUNT 31.0 pg 27.0 - 34.0 05/02 Specimen Type: BLOOD No comment entered. Ordering Provider: AHMET AMAYA Report Released Date/Time: May 02, 2023 04:58 PM Reporting Lab: [address] [address] Performing Lab: [address] [address] [facility] CBC MCHC [MASS/VOLU ME] BY AUTOMATED COUNT 33.9 g/dL 33.0 - 36.0 05/02 Specimen Type: BLOOD No comment entered. Ordering Provider: AHMET AMAYA Report Released Date/Time: May 02, 2023 04:58 PM Reporting Lab: [address] [address] Performing Lab: [address] [address] [facility] CBC PLATELETS [#/VOLUME] IN BLOOD BY AUTOMATED COUNT 259 10*3/uL 150 - 400 05/02 Specimen Type: BLOOD No comment entered. Ordering Provider: AHMET AMAYA Report Released Date/Time: May 02, 2023 04:58 PM Reporting Lab: [address] [address] Performing Lab: [address] [address] [facility] CBC PLATELET MEAN VOLUME [ENTITIC VOLUME] IN BLOOD BY AUTOMATED COUNT 9.7 fL 7.5 - 11.2 05/02 Specimen Type: BLOOD No comment entered. Ordering Provider: AHMET AMAYA Report Released Date/Time: May 02, 2023 04:58 PM Reporting Lab: [address] [address] Performing Lab: [address] [address] [facility] CBC ERYTHROCYT E DISTRIBUTI ON WIDTH [RATIO] BY AUTOMATED COUNT 12.6 11.8 - 15.1 05/02 Specimen Type: BLOOD No comment entered. Ordering Provider: AHMET AMAYA Report Released Date/Time: May 02, 2023 04:58 PM Reporting Lab: [address] [address] Performing Lab: [address] [address] [facility] CBC SEGMENTED NEUTROPHIL S/100 LEUKOCYTES IN BLOOD BY MANUAL COUNT 81.7 05/02 Specimen Type: BLOOD No comment entered. Ordering Provider: AHMET AMAYA Report Released Date/Time: May 02, 2023 04:58 PM Reporting Lab: [facility] [address] [address] Performing Lab: [facility] [address] [address] [facility] CBC BAND FORM NEUTROPHIL S/100 LEUKOCYTES IN BLOOD BY MANUAL COUNT 2.6 05/02 Specimen Type: BLOOD No comment entered. Ordering Provider: AHMET AMAYA Report Released Date/Time: May 02, 2023 04:58 PM Reporting Lab: [facility] [address] [place] [address] Performing Lab: [facility] [address] [address] [facility] CBC MONOCYTES/ 100 LEUKOCYTES IN BLOOD BY AUTOMATED COUNT 4.4 05/02 Specimen Type: BLOOD No comment entered. Ordering Provider: AHMET AMAYA Report Released Date/Time: May 02, 2023 04:58 PM Reporting Lab: [facility] [address] [address] Performing Lab: [facility] [address] [address] [facility] CBC EOSINOPHIL S/100 LEUKOCYTES IN BLOOD BY MANUAL COUNT 2.6 05/02 Specimen Type: BLOOD No comment entered. Ordering Provider: AHMET AMAYA Report Released Date/Time: May 02, 2023 04:58 PM Reporting Lab: [facility] [address] [address] Performing Lab: [facility] [address] [address] [facility] CBC BASOPHILS/ 100 LEUKOCYTES IN BLOOD BY MANUAL COUNT 1.7 05/02 Specimen Type: BLOOD No comment entered. Ordering Provider: AHMET AMAYA Report Released Date/Time: May 02, 2023 04:58 PM Reporting Lab: [facility] [address] [facility] [address] Performing Lab: [place] [address] [address] [facility] CBC PAPPENHEIM ER BODIES 0 05/02 Specimen Type: BLOOD No comment entered. Ordering Provider: AHMET AMAYA Report Released Date/Time: May 02, 2023 04:58 PM Reporting Lab: [place] [address] [address] Performing Lab: [place] [address] [address] [facility] CBC LYMPHOCYTE S/100 LEUKOCYTES IN BLOOD BY MANUAL COUNT 7.0 05/02 Specimen Type: BLOOD No comment entered. Ordering Provider: AHMET AMAYA Report Released Date/Time: May 02, 2023 04:58 PM Reporting Lab: [place] [address] [address] Performing Lab: [place] [address] [address] [facility] CBC PLATELET ADEQUACY [PRESENCE] IN BLOOD BY LIGHT MICROSCOPY ADEQUATE 05/02 Specimen Type: BLOOD No comment entered. Ordering Provider: AHMET AMAYA Report Released Date/Time: May 02, 2023 04:58 PM Reporting Lab: [place] [address] [address] Performing Lab: [place] [address] [address] [facility] CBC MANUAL DIFFERENTI AL COMMENT [INTERPRET ATION] IN BLOOD NARRATIVE Yes 05/02 Specimen Type: BLOOD No comment entered. Ordering Provider: AHMET AMAYA Report Released Date/Time: May 02, 2023 04:58 PM Reporting Lab: [place] [address] [address] Performing Lab: [place] [address] [address] [facility] CBC MANUAL DIFFERENTI AL PERFORMED [PRESENCE] IN BLOOD 0.53 0.00 - 0.05 05/02 H Specimen Type: BLOOD No comment entered. Ordering Provider: AHMET AMAYA Report Released Date/Time: May 02, 2023 04:58 PM Reporting Lab: [address] [address] Performing Lab: [address] [address] [facility] CBC BASOPHILS [#/VOLUME] IN BLOOD BY MANUAL COUNT 0.35 10*3/uL 0.01 - 0.20 05/02 H Specimen Type: BLOOD No comment entered. Ordering Provider: AHMET AMAYA Report Released Date/Time: May 02, 2023 04:58 PM Reporting Lab: [address] [address] Performing Lab: [address] [address] [facility] CBC EOSINOPHIL S [#/VOLUME] IN BLOOD BY MANUAL COUNT 0.53 10*3/uL 0.00 - 0.60 05/02 Specimen Type: BLOOD No comment entered. Ordering Provider: AHMET AMAYA Report Released Date/Time: May 02, 2023 04:58 PM Reporting Lab: [address] [address] Performing Lab: [address] [address] [facility] CBC MONOCYTES [#/VOLUME] IN BLOOD BY MANUAL COUNT 0.89 10*3/uL 0.19 - 0.80 05/02 H Specimen Type: BLOOD No comment entered. Ordering Provider: AHMET AMAYA Report Released Date/Time: May 02, 2023 04:58 PM Reporting Lab: [address] [address] Performing Lab: [address] [address] [facility] CBC LYMPHOCYTE S [#/VOLUME] IN BLOOD BY MANUAL COUNT 1.42 10*3/uL 0.77 - 4.50 05/02 Specimen Type: BLOOD No comment entered. Ordering Provider: AHMET AMAYA Report Released Date/Time: May 02, 2023 04:58 PM Reporting Lab: [address] [address] Performing Lab: [place] [id number] CBC NEUTROPHIL S [#/VOLUME] IN BLOOD BY MANUAL COUNT 16.59 10*3/uL 2.10 - 8.00 05/02 H Specimen Type: BLOOD No comment entered. Ordering Provider: AHMET AMAYA Report Released Date/Time: May 02, 2023 04:58 PM Reporting Lab: [address] [address] Performing Lab: [address] [address] [place] [address] GC & CHLAMYDI A PCR (STL-PB) NEISSERIA GONORRHOEA E DNA [PRESENCE] IN URINE BY BIBI WITH PROBE DETECTION Not Detected 03/10 Specimen Type: URINE Comment: This is a qualitative real-time PCR test for the detection and differentia tion of genomic DNA from Chlamydia trachomatis (CT) and Neisseria gonorrhoeae (NG). A negative result does not preclude infection with the agent(s) tested and should not be used as the sole basis for treatment or other patient management decisions. If negative, but symptoms persist, consider re-testing. A positive test does not necessarily indicate the presence of viable organisms, following bacterial culture (for NG) to recover the organism for further characteriz ation and susceptibil ity testing. All results must be combined with clinical observation s, patient history, and epidemiolog ical information for final interpretat ion. Ordering Provider: BARRINGTON ALICIA MANDO Report Released Date/Time: Mar 10, 2023 10:20 AM Reporting Lab: [address] [address] Performing Lab: [facility] [address] [place] [address] [facility] GC & CHLAMYDI A PCR (STL-PB) CHLAMYDIA SP DNA [PRESENCE] IN URINE BY BIBI WITH PROBE DETECTION Not Detected 03/10 Specimen Type: URINE Comment: This is a qualitative real-time PCR test for the detection and differentia tion of genomic DNA from Chlamydia trachomatis (CT) and Neisseria gonorrhoeae (NG). A negative result does not preclude infection with the agent(s) tested and should not be used as the sole basis for treatment or other patient management decisions. If negative, but symptoms persist, consider re-testing. A positive test does not necessarily indicate the presence of viable organisms, following bacterial culture (for NG) to recover the organism for further characteriz ation and susceptibil ity testing. All results must be combined with clinical observation s, patient history, and epidemiolog ical information for final interpretat ion. Ordering Provider: BARRINGTON ALICIA MANDO Report Released Date/Time: Mar 10, 2023 10:20 AM Reporting Lab: [facility] [address] [place] [address] Performing Lab: [facility] [address] [place] [address] [facility] TRICHOMO FARIBA PCR (STL) TRICHOMONA S VAGINALIS RRNA [PRESENCE] IN URINE BY BIBI WITH PROBE DETECTION Not Detected 03/10 Specimen Type: URINE Comment: Qualitative real-time PCR test to detect Trichomonas vaginalis genomic DNA. A negative result does not preclude infection with the agent(s) tested and should not be used as the sole basis for treatment or other patient management decisions. If negative, but symptoms persist, consider re-testing. A positive test does not necessarily indicate the presence of viable organisms. All results must be combined with clinical observation s, patient history, and epidemiolog ical information for final interpretat ion. Trichomonas testing on male urine was developed and its performance characteris tics determined by the [facility]. It has not been cleared or approved by the [place] Food and Drug Administrat ion (FDA). Ordering Provider: BARRINGTON ALICIA MANDO Report Released Date/Time: Mar 10, 2023 10:20 AM Reporting Lab: [facility] [address] [address] Performing Lab: [facility] [address] [facility] [address] [facility] Vital Signs Combined list of inpatient and outpatient Vital Signs from Department of Defense and Veterans Affairs, ranging from 12 months to all on record, depending upon the facility. Vital Sign Value Date Comments Source SYSTOLIC BLOOD PRESSURE 137 04/10/2024 11:29:52 [facility] DIASTOLIC BLOOD PRESSURE 84 04/10/2024 11:29:52 [facility] WEIGHT 223.1 04/10/2024 11:29:[facility] BMI 31 kg/m2 04/10/2024 11:29:52 [facility] TEMPERATURE 98.5 04/10/2024 11:29:52 [facility] PULSE 76 04/10/2024 11:29:52 [facility] RESPIRATION 20 04/10/2024 11:29:52 [facility] SYSTOLIC BLOOD PRESSURE 106 03/23/2024 09:17:23 [facility] DIASTOLIC BLOOD PRESSURE 71 03/23/2024 09:17:23 [facility] PULSE OXIMETRY 98 03/23/2024 09:17:23 [facility] WEIGHT 218.7 03/23/2024 09:17:23 [facility] BMI 31 kg/m2 03/23/2024 09:17:23 [facility] PAIN 7 03/23/2024 09:17:23 [facility] TEMPERATURE 97.6 03/23/2024 09:17:23 [facility] PULSE 89 03/23/2024 09:17:23 [facility] RESPIRATION 18 03/23/2024 09:17:23 [facility] SYSTOLIC BLOOD PRESSURE 122 09/05/2023 11:12:31 [facility] DIASTOLIC BLOOD PRESSURE 78 09/05/2023 11:12:31 STFredy BECKY [facility] PULSE OXIMETRY 99 09/05/2023 11:12:31 S Justin BECKY [facility] WEIGHT 225 09/05/2023 11:12:31 ST. Pinky [facility] BMI 31 kg/m2 09/05/2023 11:12:31 [facility] [facility] PAIN 0 09/05/2023 11:12:31 [facility] HEIGHT 71 09/05/2023 11:12:31 [facility] TEMPERATURE 98.7 09/05/2023 11:12:31 [facility] PULSE 77 09/05/2023 11:12:31 . [facility] RESPIRATION 19 09/05/2023 11:12:31 [facility] Encounters Combined list of: 1) Encounters from Department of [facility] facilities going backup to the last 18 months, not all [place] inpatient encounters are included; 2) Encounters from the Department of [facility] facilities going backup to 280 months. 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 MET ELVIRA ALICIA 03/10 [facility] Outpatient Encounter [id number] 04/05 [facility] PRO PHONE CALL 5-10 MIN [id number] Diagnos is: ICD-10- CM Z04.9 Encount er for examina tion and observa tion for unsp reason NORMAN MINOR 04/22 [facility] EMERGENCY DEPT VISIT LOW MDM [id number] Diagnos is: ICD-10- CM J02.9 Acute pharyng itis, unspeci fied SHEILA LLANOS RGE R 05/02 [facility] Outpatient Encounter [id number] SHEILA LLANOS RGE R 05/02 [facility] Outpatient Encounter [id number] 07/26 [facility] Outpatient Encounter [id number] 08/11 [facility] Outpatient Encounter [id number] VENKAT URIBE EE L 08/11 [facility] Outpatient Encounter [id number] 08/14 [facility] OFFICE O/P EST MOD 30 MIN [id number] Diagnos is: ICD-10- CM L30.4 Erythem a intertr julian NAJERA CH IDIMMA N 09/[address] [facility] HC PRO PHONE CALL 11-20 MIN [id number] Diagnos is: ICD-10- CM G47.33 Obstruc tive sleep apnea (adult) (pediat devon) NORMAN MINOR ISTINE M 09/05 [facility] Outpatient Encounter [id number] 09/28 [facility] OFFICE O/P EST MOD 30 MIN [id number] Diagnos is: ICD-10- CM F90.0 Attn-de fct hyperac tivity disorde r, predom inatten tive type MIO DELACRUZ IEL 10/10 [facility] Outpatient Encounter [id number] 12/13 [facility] Outpatient Encounter [id number] 12/13 [facility] OFFICE O/P EST MOD 30 MIN [id number] Diagnos is: ICD-10- CM F43.10 Post-tr aumatic stress disorde r, unspeci fied MIO DELACRUZ IEL 12/13 [facility] Outpatient Encounter [id number] 12/18 [facility] Outpatient Encounter [id number] 02/16 [facility] OFFICE O/P EST LOW 20 MIN [id number] Diagnos is: ICD-10- CM M25.561 Pain in right knee NHI MONTILLA 03/23 [facility] Outpatient Encounter [id number] 03/27 [facility] Outpatient Encounter [id number] 03/29 [facility] Outpatient Encounter [id number] NORMAN MINOR ISTINE M 03/29 [facility] OFFICE O/P EST MOD 30 MIN [id number] Diagnos is: ICD-10- CM F43.10 Post-tr aumatic stress disorde r, unspeci fied GEENA DELACRUZ 04/10 [facility] Outpatient Encounter [id number] 04/10 [facility] HC PRO PHONE CALL 21-30 MIN [id number] Diagnos is: ICD-10- CM G47.33 Obstruc tive sleep apnea (adult) (pediat [facility]) GEENA DELACRUZ 04/24 [facility] Outpatient Encounter [id number] 04/25 [facility] OFFICE O/P EST MOD 30 MIN [id number] Diagnos is: ICD-10- CM F90.0 Attn-de fct hyperac tivity disorde r, predom inatten tive type MIO DELACRUZ 04/25 [facility] Outpatient Encounter [id number] 05/07 [facility] Outpatient Encounter [id number] 05/08 [facility] Outpatient Encounter [id number] 05/10 [facility] HC PRO PHONE CALL 21-30 MIN [id number] Diagnos is: ICD-10- CM G47.33 Obstruc tive sleep apnea (adult) ([facility] devon) GEENA DELACRUZ 05/[address] [facility] PH1 ASSMT&MGMT NQHP -30 [id number] Diagnos is: ICD-10- CM G47.33 Obstruc tive sleep apnea (adult) ([facility]) GEENA DELACRUZ 05/29 [facility] Outpatient Encounter [id number] 05/29 [facility] Outpatient Encounter [id number] 05/31 [facility] THERAPEUTI C EXERCISES [id number] Diagnos is: ICD-10- CM M25.561 Pain in right knee JENNI HAWLEY 06/06 [facility] Outpatient Encounter [id number] PAUL DUKE 06/07 [facility] Outpatient Encounter [id number] 06/14 [facility] Outpatient Encounter [id number] 07/02 [facility] Outpatient Encounter [id number] 07/26 [facility] Encounter [id number] 07/26 [facility] N [facility] PH1 ASSMT&MGMT NQHP - [id number] Diagnos is: ICD-10- CM G47.33 Obstruc tive sleep apnea (adult) (pediat [facility]on) IVÁNNORMAN NATHEN M 07/26 [facility] N [facility] OFF/OP EST SEPTEMBER X REQ PHY/QHP [id number] Diagnos is: ICD-10- CM G47.33 Obstruc tive sleep apnea (adult) (pediat devon) LIVE CRUZ B 08/08 [facility] N [facility] Outpatient Encounter [id number] 08/08 [facility] Outpatient Encounter [id number] 08/09 [facility] N Social History Combined list of available smoking, tobacco, and other social history from Department of Defense and Veterans Affairs facilities. Social History Type Response Date Comment Sour e Tobacco smoking status NHIS VA-TOBACCO USE FORMER CIGARETTES 04/10/2024 [facility] History of tobacco use VA-TOBACCO USE FORMER OTHER TYPE 04/10/2024 [facility] History of tobacco use VA-TOBACCO QUIT 1 TO < 5 YRS 2023 [facility] History of tobacco use VA-TOBACCO USER EVERY DAY 09/28/2021 [facility] History of tobacco use VA-TOBACCO USER SOME DAYS 07/14/2020 [facility] History of tobacco use VA-TOBACCO QUIT 5 TO < 15 YRS 02/07/2019 [facility] History of tobacco use PRIOR TOBACCO USE CESSATION DATE 12/19/2015 Vijay GARCIA/Saniya Stoddard [facility] History of tobacco use TOBACCO PACK YEARS 12/05/2015 [facility] History of tobacco use PRIOR TOBACCO USE CESSATION DATE 09/11/2015 NFredy GARCIA/Saniya Stoddard [facility] History of tobacco use TOBACCO PACK YEARS 09/10/2015 [facility] History of tobacco use PRIOR TOBACCO USE CESSATION DATE 07/19/2015 NF[place]/Saniya Stoddard [facility] History of tobacco use TOBACCO PACK YEARS 07/19/2015 [facility] History of tobacco use QUIT TOBACCO >12 MO and <7 YRS AGO 05/08/2014 [facility] History of tobacco use NON TOBACCO USER - QUIT IN PAST YEAR 06/13/2007 [facility] History of tobacco use CURRENT SMOKER 05/22/2007 [facility] History of tobacco use NON TOBACCO USER - QUIT IN PAST YEAR 04/05/2005 [facility] Plan of Care List of future care activities from Department [facility] facilities. Additional future care activities may be listed in the Assessment and Plan section. Date/Time Care Activity Care Activity Detail Facili ty 10/08/2024 AMBULATORY - MEDICINE AMBULATORY - MEDICI DONNA POLANCO [facility] Advance Directives List of completed, amended, or rescinded Advance Directives on record at Department [facility] facilities. An actual copy of the Directive is not included. Date Advance Directive Provider Source 05/23/2007 ADVANCE DIRECTIVE DISCUSSION SAI CISSE [facility]
--- OUTSIDE RECORDS SUMMARY | 2024-08-20 08:18 | XMS_ITS | Data Portability ---
Author Organization [facility], Main Office Address [address] [place] [address] Assessment Encounter Date Assessment Date Assessment LastModified by Organization Details LastModified Time 09/15/2023 09/15/2023 Assessment: TEVIN PLMD Hypoventilation Plan: The following were reviewed and explained to the patient: primary care/referral note We will try to obtain his old sleep studies from: 1. [facility] in [place], [place]. 2. [facility], [facility] on [place], [place]. General information on sleep disordered breathing, evaluation of sleep disordered breathing, treatment with PAP therapy, and living with PAP therapy were covered. We discussed with the patient the impact of weight on: Sleep disordered breathing Hyperlipidemia We discussed with the patient the benefit of PAP therapy on: Sleep disordered breathing ADHD/Depression/ Anxiety/PTSD Educated the patient on sleep hygiene measures. Relaxing rituals to rest easy, understanding foods with positive and negative impact on sleep, creating a peaceful sleep environment, timing of exercise, using herbal sleep aids, and practicing sleep-friendly meditation were covered. To determine how much sleep is needed, the patient will assess where he falls on the spectrum, examine what lifestyle factors such as work schedules and stress are affecting the quality and quantity of sleep. In general, adults need 7-9 hours of sleep. Educated the patient regarding foods that promote sleep. These include but are not limited to cherries, bananas, toast, oatmeal, and warm milk. Educated the patient regarding foods and drinks to avoid before bedtime. These include but are not limited to aged cheese, chocolate, spicy foods, tomato-based sauces, soy, ginseng tea and processed meat. Advocated influenza vaccination annually and pneumonia vaccination in 2044. Advocated weight loss through diet and exercise. Patient's ideal body weight according to height and gender is up to 185 lbs. Encouraged patient to adjust caloric intake to maintain/achieve ideal body weight, emphasizing on fruits, vegetables, whole grains, and fat-free or low-fat products. These include lean meats, poultry, fish, beans, eggs, and nuts and foods that are low in saturated fats, trans-fats, cholesterol, salt (sodium), and glycemic index. Stressed the importance of regular exercise up to the patient's capacity limits. In this case, we recommend 20 min daily walking, 2 days a week of resistance training. Patient to monitor BP daily and bring records to PCP for further management. Follow-up: 1 week after diagnostic sleep study Not available 09/15/2023 11:15:39 01/02/2024 01/02/2024 Assessment: Severe OSAHS, AHI = 32 Plan: The following were reviewed and explained to the patient: [facility] diagnostic sleep study 12/14/23 sleep onset = 6 minutes, REM onset = 317.5 minutes, AHI = 32, PLMI = 0.0 We will try to obtain his old sleep studies from: 1. [facility] in [place], [place]. 2. [facility] on [place], [place]. General information on sleep disordered breathing, evaluation of sleep disordered breathing, treatment with PAP therapy, and living with PAP therapy were covered. We discussed with the patient the impact of weight on: Sleep disordered breathing Hyperlipidemia We discussed with the patient the benefit of PAP therapy on: Sleep disordered breathing ADHD/Depression/ Anxiety/PTSD Patient is resistant to PAP and MAD therapies. We will refer him for INSPIRE therapy, Educated the patient on sleep hygiene measures. Relaxing rituals to rest easy, understanding foods with positive and negative impact on sleep, creating a peaceful sleep environment, timing of exercise, using herbal sleep aids, and practicing sleep-friendly meditation were covered. To determine how much sleep is needed, the patient will assess where he falls on the spectrum, examine what lifestyle factors such as work schedules and stress are affecting the quality and quantity of sleep. In general, adults need 7-9 hours of sleep. Educated the patient regarding foods that promote sleep. These include but are not limited to cherries, bananas, toast, oatmeal, and warm milk. Educated the patient regarding foods and drinks to avoid before bedtime. These include but are not limited to aged cheese, chocolate, spicy foods, tomato-based sauces, soy, ginseng tea and processed meat. Advocated influenza vaccination annually and pneumonia vaccination in 2044. Advocated weight loss through diet and exercise. Patient's ideal body weight according to height and gender is up to 185 lbs. Encouraged patient to adjust caloric intake to maintain/achieve ideal body weight, emphasizing on fruits, vegetables, whole grains, and fat-free or low-fat products. These include lean meats, poultry, fish, beans, eggs, and nuts and foods that are low in saturated fats, trans-fats, cholesterol, salt (sodium), and glycemic index. Stressed the importance of regular exercise up to the patient's capacity limits. In this case, we recommend 20 min daily walking, 2 days a week of resistance training. Patient to monitor BP daily and bring records to PCP for further management. Follow-up: 1 month after Inspire Therapy Not available 01/02/2024 15:46:10 Plan of Treatment Reminders Order Date Submit Date Provider Last Modified By Organization Details Last Modified Time Details Appointments None recorde d. Lab None recorde d. Referral None recorde d. Procedures None recorde d. Surgeries None recorde d. Imaging polysom nogram, diagnos tic, 6 yrs or older 024 09/15/19 24 [email or web address] [id number] [facility], [address] [place], [address], 08:53:07 Medication Orders None recorde d. Patient TargetsNo targets recorded. Patient InstructionsNo instructions recorded. Reason for Referral None Reported. Results Created Date Observation Date Name Description Value Unit Range Abnormal Flag Note LastModifiedBy Organization Detail LastModifiedTime 09/28/19 24 12/06/2016 home sleep study No observ ation record ed. [facility] Not Available 2023 16:37:44 01/02/20 24 12/14/2023 polys omnog norman, diagn ostic , 6 yrs or older No observ ation record ed. BARCODE [facility] [address] [place], [address], 01/02/2024 15:19:25 Result Notes None recorded. 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 Procedures Surgical History Date Name Laterality Status Provider Name and Address Organization Details Recorded Time operation on nose completed Odalis Aguirre CMA [employer] 09/15/2023 10:34:10 Imaging Results Imaging Date Name Status LastModified by Organiz ation Details LastModified Time 12/06/2016 home sleep study completed [facility] Information not available 09/28/2023 16:37:44 12/14/2023 polysomnogr am, diagnostic, 6 yrs or older completed [employer] [facility] [address] [place], [address], 01/02/2024 15:19:25 Procedure Notes None recorded. Medical Equipment None Reported. Allergies No known drug allergies Medications Name Sig Start Date Stop Date Status Note LastModified by Organization Details LastModified Time atorvastati n 20 mg tablet Take 1 tablet every day by oral route. active Not Available Not Available No t Available benzonatate 200 mg capsule TAKE 1 CAPSULE BY MOUTH THREE TIMES A DAY NEEDED FOR 7 DAYS 09/14 completed Not Available Not Available Not Available prednisone 20 mg tablet TAKE 1 TABLET BY MOUTH TWICE A DAY FOR 5 DAYS 12/19 completed Not Available Not Available Not Available sulfamethox azole 800 mg-trimetho prim 160 mg tablet TAKE 1 TABLET BY MOUTH TWICE DAILY FOR 7 DAYS 01/01 completed Not Available Not Available Not Available lidocaine-p rilocaine 2.5 %-2.5 % topical cream APPLY TOPICALLY TO THE AFFECTED AREA TWICE DAILY DIRECTED 01/01 completed Not Available Not Available Not Available hydrocortis one 2.5 % topical cream APPLY TOPICALLY ONCE DAILY DURING WRAP CHANGE FOR 7 DAYS 01/01 completed Not Available Not Available Not Available albuterol sulfate HFA 90 mcg/actuati on aerosol inhaler INHALE 1 PUFF BY MOUTH EVERY 4 HOURS NEEDED active Not Available Not Available No t Available doxycycline hyclate 100 mg tablet TAKE 1 TABLET BY MOUTH DAILY FOR 21 DAYS STARTING ON DAY 8 01/01 completed Not Available Not Available Not Available Adderall 10 mg tablet Take 1 tablet as needed by oral route. active Not Available Not Available No t Available bupropion HCl XL 300 mg 24 hr tablet, extended release Take 1 tablet every day by oral route. active Not Available Not Available No t Available Vitals Date Recorded Body weight Body mass index (BMI) Body height Heart rate Oxygen saturation Oxygen saturation in Arterial blood by Pulse oximetry Body temperature Systolic blood pressure Diastolic blood pressure Provider Name and Address Organization Details Last Updated DateTime 4 782399. 69 g 31.2 kg/m2 180.34 cm 78 /min 99 % 99 % 97.4 [degF] 124 mm[Hg] 70 mm[Hg] Odalis Aguirre [facility] [employer] 10:22:21 Date Recorded Heart rate Respiratory rate Provider N lisseth and Address Organization Details Last Updated DateTime 09/15/2023 78 /min 15 /min Erik Tavarez MD [address], [address], [address] [employer] 09/15/2023 11:15:53 Date Recorded Body height Body mass index (BMI) Body weight Heart rate Oxygen saturation Oxygen saturation in Arterial blood by Pulse oximetry Body temperature Systolic blood pressure Diastolic blood pressure Provider Name and Address Organization Details Last Updated DateTime 4 180.34 cm 31.2 kg/m2 360623. 69 g 62 /min 98 % 98 % 98.1 [degF] 138 mm[Hg] 70 mm[Hg] Odalis Aguirre [facility] [employer] 15:21:45 Date Recorded Heart rate Respiratory rate Provider N lisseth and Address Organization Details Last Updated DateTime 01/02/2024 62 /min 15 /min Erik Tavarez MD [address], [address], [place], [address], [place] [facility] 01/02/2024 15:46:36 Social History Question Answer Notes LastModified by Organizat ion Details LastModified Time Tobacco Smoking Status Former Smoker [place], [facility] 09/15/2023 10:25:09 What Is Your Level Of Alcohol Consumption? Occasional Wine [email or web address] Information not available 09/15/2023 Is Blood Transfusion Acceptable In An Emergency? Yes [email or web address] Information not available 09/15/2023 What Is Your Level Of Caffeine Consumption? Moderate Energy Drink [email or web address] Information not available 09/15/2023 In The 14 Days Before Symptom Onset, Have You Had Close Contact With A Laboratory-confir med COVID-19 While That Case Was Ill? No [email or web address] Information not available 09/15/2023 In The 14 Days Before Symptom Onset, Have You Had Close Contact With A Person Who Is Under Investigation For COVID-19 While That Person Was Ill? No Information not available 09/15/2023 Are You Currently Employed? Yes [employer]ed [email or web address] Information not available 09/15/2023 What Type Of Diet Are You Following? REGULAR [email or web address] Information not available 09/15/2023 When Did You Quit Smoking? 1-5yearssince lastcigarette 2018 Information not available 09/15/2023 How Many Children Do You Have? 3 [email or web address] Information not available 09/15/2023 What Is Your Relationship Status? [email or web address] Information not available 09/15/2023 Do You Use Your Seat Belt Or Car Seat Routinely? Yes [email or web address] Information not available 09/15/2023 Do You Have Smoke And Carbon Monoxide Detectors In Your Home? Yes Information not available 09/15/2023 Are You Passively Exposed To Smoke? No Information no t available 09/15/2023 Do You Feel Stressed (tense, Restless, Nervous, Or Anxious, Or Unable To Sleep At Night)? [id number] Anxiety [email or web address] Information not available 09/15/2023 Do You Use Any Illicit Or Recreational Drugs? No [email or web address] Information not available 09/15/2023 Do You Use Sunscreen Routinely? Yes [email or web address] Information not available 09/15/2023 How Many Years Have You Smoked Tobacco? 10 [email or web address] Information not available 09/15/2023 Have You Recently Traveled Abroad? Yes 3 Weeks Ago Information not available 09/15/2023 Sex: Unknown Functional Status Question Answer Note LastModified by Organizat ion Details LastModified Time What is your exercise level? Moderate 3 times a week [email or web address] Information not available 09/15/2023 Mental Status None recorded. Family History Nothing Reported. Medical History No medical history recorded. Past Encounters Encounter ID Performer Location Encounter Start Date Encounter Closed Date Diagnosis/Indication Diagnosis SNOMED-CT Code Diagnosis ICD10 Code Diagnosis Note [id number] Erik Tavarez MD [facility] [address] 09/15/2023 09:52:11 09/16/2023 08:21:32 Sleep apnea 65905178 G47.30 G47.33 G47.36 G47.61 [id number] Erik Tavarez MD [address] [address] 01/02/2024 15:01:21 01/03/2024 08:05:21 Obstructive sleep apnea syndrome 75329066 G47.33 Health Concerns Section Related Observation LastModified by Organization Detai ls LastModified Time None Recorded Concern Status LastModified by Organization Details LastModified Time None Recorded Advance Directives Directive None Recorded Payers Encounter Date Sequence Insurance Name Policy Number Policy Urban Covered Member ID Urban Member ID Guarantor Name 09/15/2023 [facility] Swati Mujica [id number] Swati Mujica 01/02/2024 [facility] Swati Mujica [id number] Swati Mujica Notes Date Note Type Note Provider Name and Address Organization Details Recorded Time 09/15/2023 text/html Primary care/Ref erring provider: Braxton Dick MD; Segun Palacios NP CC: I was diagnosed with TEVIN in 2014. I used CPAP x 2 years until the machine was recalled. Then I has nasal septoplasty. TEVIN improved. I tried the MAD x 6 months but did not like it. Now I want to use Inspire and I need a more recent sleep study. At home, the patient sleeps from 9 pm to 6 am and wakes up with an alarm. Snoring: heavy, since . Snorting: yes Choking: yes Coughing: no Gasping: yes Gagging: yes Sighing: no Witnessed apnea: yes Twitching or jerking of leg(s), arm(s), body, head: yes Teeth grinding: no Teeth clenching: no Sleeptalking: yes Sleepwalking: no Sleep crying: yes Bedwetting: no Tongue/lip/gum/cheek biting: yes Sleeping with open mouth: yes Sleep paralysis: no Hypnagogic hallucinations: no Hypnopompic hallucinations: no Vivid dreams: yes Difficulty with sleep onset: yes Difficulty with sleep maintenance: yes Sleep interruptions: gasping, sweating Patient wakes up with: fatigue, xerostomia, sore throat, hoarse voice, headaches, cognitive impairment, dexterity impairment Daytime cataplexy: no Morning hypersomnolence: no Afternoon hypersomnolence: yes Caffeine sources in diet: tea 1 cup per season, chocolate 1 candy per month, energy drink 1.5 can of Monster per day Associated medical and psychiatric conditions: Congestive heart failure: no Coronary artery disease: no Myocardial infarction: no Hypertension: no Stroke: no Bronchial asthma: no Chronic obstructive pulmonary disease: no Depression: yes Bipolar disorder: no Anxiety: yes Panic disorder: no Posttraumatic stress disorder: yes Attention deficit and hyperactivity disorder: yes Obsessive Compulsive disorder: no Schizophrenia: no Schizoaffective disorder: no Personality disorder: no Chronic analgesic use: no Chronic sedative/hypnotic use: no EPWORTH SLEEPINESS SCALE (ESS) CHANCE OF DOZING SCORE 0 = would never doze 1 = slight chance of dozing 2 = moderate chance of dozing 3 = high chance of dozing SITUATION AND CHANCE OF DOZING Sitting and reading - 3 Watching television - 3 Sitting inactive in a public place (e.g. a theater or meeting) - 2 As a passenger in a car for an hour without a break - 0 Lying down to rest in the afternoon when circumstances permit - 2 Sitting and talking to someone - 0 Sitting quietly after lunch without alcohol - 0 In a car, while stopped for a few minutes in the traffic - 0 TOTAL SCORE 10 Subjectively, patient has a moderate chance of dozing. Erik Tavarez MD [address] [facility], [place] [address], [place], [address], [place] [facility] 09/15/2023 11:16:19 01/02/2024 text/html Primary care/Ref erring provider: Braxton Dick MD; Segun Palacios NP CC: I was diagnosed with TEVIN in 2014. I used CPAP x 2 years until the machine was recalled. Then I has nasal septoplasty. TEVIN improved. I tried the MAD x 6 months but did not like it. Now I want to use Inspire and I need a more recent sleep study. During the [facility] diagnostic sleep study on 12/14/23, sleep onset = 6 minutes, REM onset = 317.5 minutes, AHI = 32, PLMI = 0.0. At home, the patient sleeps from 9 pm to 6 am and wakes up with an alarm. Snoring: heavy, since .Snorting: yesChoking: yesCoughing: noGasping: yesGagging: yesSighing: noWitnessed apnea: yesTwitching or jerking of leg(s), arm(s), body, head: yesTeeth grinding: noTeeth clenching: noSleeptalking: yesSleepwalking: noSleep crying: yesBedwetting: noTongue/lip/gum/cheek biting: yesSleeping with open mouth: yesSleep paralysis: noHypnagogic hallucinations: noHypnopompic hallucinations: noVivid dreams: yesDifficulty with sleep onset: yesDifficulty with sleep maintenance: yesSleep interruptions: gasping, sweatingPatient wakes up with: fatigue, xerostomia, sore throat, hoarse voice, headaches, cognitive impairment, dexterity impairmentDaytime cataplexy: noMorning hypersomnolence: noAfternoon hypersomnolence: yesCaffeine sources in diet: tea 1 cup per season, chocolate 1 candy per month, energy drink 1.5 can of Monster per day Associated medical and psychiatric conditions:Congestive heart failure: noCoronary artery disease: noMyocardial infarction: noHypertension: noStroke: noBronchial asthma: noChronic obstructive pulmonary disease: noDepression: yesBipolar disorder: noAnxiety: yesPanic disorder: noPosttraumatic stress disorder: yesAttention deficit and hyperactivity disorder: yesObsessive Compulsive disorder: noSchizophrenia: noSchizoaffective disorder: noPersonality disorder: noChronic analgesic use: noChronic sedative/hypnotic use: no EPWORTH SLEEPINESS SCALE (ESS) CHANCE OF DOZING SCORE0 = would never doze1 = slight chance of dozing2 = moderate chance of dozing3 = high chance of dozing SITUATION AND CHANCE OF DOZINGSitting and reading - 1Watching television - 2Sitting inactive in a public place (e.g. a theater or meeting) - 1As a passenger in a car for an hour without a break - 2Lying down to rest in the afternoon when circumstances permit - 3Sitting and talking to someone - 1Sitting quietly after lunch without alcohol - 1In a car, while stopped for a few minutes in the traffic - 0TOTAL SCORE 11Subjectively, patient has a moderate chance of dozing. Erik Tavarez MD [address] [place] [address], [phone], [facility] 01/02/2024 15:46:44
--- OUTSIDE RECORDS SUMMARY | 2024-08-20 08:18 | XMS_ITS ---
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 Date/Time Encounter Type Encounter Description Reason Provider Source Jun 06, 2024 01:00 PM THERAPEUTIC EXERCISES PHYSICAL THERAPY ICD-10-CM M25.561 Pain in right knee DYLON HAWLEY Encounter Template Text not used by [place] Assessments - Encounter Diagnoses This section includes the primary and secondary diagnoses documented for the Encounter. Date/Time Primary/Secondary Diagnosis Diagnosis Name Provider Source Jun 06, 2024 04:24 PM PRIMARY Pain in right knee ZEKE HAWLEY [facility] Plan of Treatment: Future Appointments (+ 6 months) and Future Tests (+/- 45 days) The Plan of Treatment section includes future care activities for the patient from all [place] [facility]. This section includes future appointments and future orders which are active, pending or scheduled. Future Appointments This section includes appointments that were scheduled to occur 6 months from the date of the Encounter, up to a maximum of 20 appointments. The data comes from all [facility]. Appointment Date/Time Appointment Type Appointme nt Facility Name Jun 29, 2024 09:30 AM AMBULATORY - REHAB MEDICIN E [facility] Jul 07, 2024 09:15 PM AMBULATORY - MEDICINE [facility] October 08, 2024 02:30 PM AMBULATORY - MEDICINE [facility] Nov 12, 2024 03:30 PM AMBULATORY - PSYCHIATRY [facility] Active, Pending, and Scheduled Orders This section includes a listing of several types of active, pending, and scheduled orders, including clinic medications orders, diagnostic test orders, procedure orders and consult orders; where the start date of the order is 45 days before the date of the Encounter or 45 days after the date of theEncounter. The data comes from all [facility]. Test Date/Time Test Type Test Details Facility Name May 21, 2024 10:04 AM Consult Order COMMUNITY CARE-ST SLEEP STUDY [facility] May 29, 2024 01:53 PM Consult Order HOME SLEEP APNEA TEST OUTPT ST Cons [facility] Social History: Smoking Status (Most current) and Tobacco Use (All prior to encounter date) This section includes the most current, and the historical, smoking and tobacco- related health factors from the [place] facility where the Encounter took place. Current Smoking Status This section includes the most current smoking, or tobacco-related health factor, from the [place] facility where the Encounter took place. Date/Time Current Smoking Status Comment Sylvie ity Jul 14, 2020 08:43 AM VA-TOBACCO USER SOME DAYS [facility] Tobacco Use History This section includes a history of the smoking, or tobacco-related health factors, that were collected on or before the date of the Encounter. The data comes from the [place] facility where the Encounter took place. 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 This section includes ALL of a patient's completed or amended [place] Advance and Rescinded Directives. The entries below indicate that a directive exists for the patient, but an actual copy is not included with this document. The data comes from all [place] facilities. Date Advance Directives Provider Source May 23, 2007 ADVANCE DIRECTIVE DISCUSSION SAI C[facility] Radiology Reports: +/- 30 days of the encounter Radiology Reports For cases when an order for radiology services may have been completed prior to the date of the Encounter, the report list includes the Radiology Reports that were completed up to 30 days before dateof the Encounter. For cases when an order for radiology services may have been completed after the date of the Encounter, the report list also includes the Radiology Reports that were completed up to30 days after date of the Encounter. The data comes from all [place] treatment facilities. Date/Time Radiology Report Provider Source May 31, 2024 10:06 AM MRI KNEE RIGHT: TAVON MORENO [id number] -[id number] Ex Date: MAY 31, 2024@10:06 Req Phys: GEENA DELACRUZ Pat Loc: [facility] PACT 5 PCP (Jinny'elke Mccauley Img Loc: [facility] Service: [facility], operated by [facility] [address] [place] [address] (Case [id number] COMPLETE) MRI KNEE RIGHT (MRI Detailed) CPT:41189 Proc Modifiers : RIGHT CPT Modifiers : RT RIGHT SIDE Reason for Study: knee pain Clinical History: Has this patient had a plain film x-ray of this body part within the past 6 months? Yes If no, please order a plain film x-ray. After the results of the x-ray, you may then proceed to order an MRI if necessary. Otherwise, this MRI order will be cancelled. Date of plain film x-ray performed? Mar Responsible Attending: Genesis Attending Contact Number: [id number] Resident Contact Number: Does your patient have an implanted device or hardware? (Any prosthesis, implant, shrapnel or bullet fragments) No Does your patient have any of the following (Please check all that apply) [ ] Pacemaker [ ] AICD [ ] Neuro-stimulator [ ] Bone Growth Stimulator [ ] Pain Pump [ ] Insulin Pump [ ] Cochlear Implant [ ] Ocular Implant [ ] Aneurysm Clip [ ] Vascular Clip Any other type of implant, please explain Does your patient have a Coronary Stent: No Does your patient have a an artificial Heart Valve: No Were any of the following intravascular implanted devices inserted less than 6 weeks ago: Stent No IVC Filter No Embolization Coils No Is your patient's weight >350lbs or abdominal and shoulder width >60cm? No Does your patient have Renal Failure, Chronic or Acute Renal Disease? No If ordering a contrasted enhanced MRI, you will be required to complete the order for creatine eGFR which is located at the bottom of the MRI ordering screen. If your patient is 60 years or older, the patient will need a recent eGFR within 30 days prior to the exam. NOTE: Incorrectly answering these questions may result in a delay in the procedure. A patient with a device or implant does not automatically mean the patient cannot receive an MRI. If your patient will have difficulty with a confined space, the provider will be responsible for ordering a sedation prior to the procedure, or to order an alternative procedure. Report Status: Verified Date Reported: JUN 04, 2024 Date Verified: JUN 04, 2024 Presiding Judge E-Sig:/ES/Agus Eldridge MD Report: CASE #: [id number] DATE:05/31/2024 11:00 AM CLINICAL HISTORY:knee pain COMPARISON: 03/23/2024 PROCEDURES: MRI KNEE RIGHT FINDINGS: The anterior cruciate ligament and medial and lateral collateral ligaments are intact. The femoral attachment of the posterior cruciate ligament is thickened suggesting possibility of remote trauma, however, the PCL appears to be intact. Remote tear of the posterior horn of the lateral meniscus. Contusion in the posterior superior aspect of the lateral humeral epicondyle near the lateral gastrocnemius attachment with small subchondral cysts noted also likely represents a remote injury with developing osteoarthritic change. The popliteus tendon is intact. There is generalized cartilage thinning in the lateral tibiofemoral compartment without other subchondral/subcortical edema or cyst formation. There is a small focus of subcutaneous susceptibility artifact noted lateral to the inferior patellar margin, could be secondary to small embedded metallic fragment or possibly sequelae of prior surgery. The medial meniscus and medial tibiofemoral compartment articular cartilage are intact. The patellofemoral alignment is maintained and there is a no chondromalacia in the patellofemoral compartment. Patellar retinaculum and extensor mechanism are intact. There is a small joint effusion and small multiloculated Orr's cyst. Impression: Abnormal appearance of the posterior horn of the lateral meniscus and posterior cruciate ligament and posterior aspect of the lateral humeral epicondyle suggests remote injury to the structures as discussed above. Lateral tibiofemoral compartment cartilage thinning. Other findings as discussed above. Primary Interpreting Staff: Agus Eldridge MD, Radiologist (Presiding Judge) /AGUS NASSAR [facility] Encounter Notes: All associated encounter notes This section contains the clinical notes associated to the Encounter. Date/Time Encounter Note(s) Provider Source Jun 06, 2024 01:18 PM PHYSICAL THERAPY C ONSULT: LOCAL TITLE: PT CONSULT ST STANDARD TITLE: PHYSICAL THERAPY CONSULT DATE OF NOTE: JUN 06, 2024@13:18 ENTRY DATE: JUN 06, 2024@13:18:13 AUTHOR: ELISE HAWLEY COSIGNER: URGENCY: STATUS: COMPLETED PHYSICAL THERAPY EVALUATION Chart Review: Imaging: Report Status: Verified Date Reported: JUN 04, 2024 Date Verified: JUN 04, 2024 Presiding Judge E-Sig:/ES/Agus Eldridge MD Report: CASE #: [id number] DATE:05/31/2024 11:00 AM CLINICAL HISTORY:knee pain COMPARISON: 03/23/2024 PROCEDURES: MRI KNEE RIGHT FINDINGS: The anterior cruciate ligament and medial and lateral collateral ligaments are intact. The femoral attachment of the posterior cruciate ligament is thickened suggesting possibility of remote trauma, however, the PCL appears to be intact. Remote tear of the posterior horn of the lateral meniscus. Contusion in the posterior superior aspect of the lateral humeral epicondyle near the lateral gastrocnemius attachment with small subchondral cysts noted also likely represents a remote injury with developing osteoarthritic change. The popliteus tendon is intact. There is generalized cartilage thinning in the lateral tibiofemoral compartment without other subchondral/subcortical edema or cyst formation. There is a small focus of subcutaneous susceptibility artifact noted lateral to the inferior patellar margin, could be secondary to small embedded metallic fragment or possibly sequelae of prior surgery. The medial meniscus and medial tibiofemoral compartment articular cartilage are intact. The patellofemoral alignment is maintained and there is a no chondromalacia in the patellofemoral compartment. Patellar retinaculum and extensor mechanism are intact. There is a small joint effusion and small multiloculated Orr's cyst. Impression: Abnormal appearance of the posterior horn of the lateral meniscus and posterior cruciate ligament and posterior aspect of the lateral humeral epicondyle suggests remote injury to the structures as discussed above. Lateral tibiofemoral compartment cartilage thinning. Other findings as discussed above. 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 Date: May 09, 2024 DST ID: Orderable Item: PT OUTPT STL Consult: Consult Request Provisional Diagnosis: Pain in right Knee(ICD-10-CM M25.561) Start of Care: 06/06/24 Reevaluation due: 07/07/24 POC through: Visits to date: 1 No shows/cancellations: 0 Treatment time: [id number] (patient arrived late to appt) Total: 52 mins. Evaluation: 20 mins. Therapeutic exercise: 32 mins. Subjective: Patient chief complaint R knee pain ongoing since Jan. No known mechanism of injury, woke with R knee pain and locking R knee locks and clicks which results in impaired functional mobility. Locking of the R knee occurs at times such as getting up first thing in the morning, or end range knee flexion stretching or when turning and pivoting on the R LE. Recently had MRI completed of the R knee and has yet to review results with his primary provider, no referral to ortho specialist pending at this time. Patient overall is generally very active and enjoys exercising however has not been participating in exercise due to R knee pain and fear that knee will lock out again. 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, [place] [employer] --Pain Rating (0-10): Current: Best: Worst: 8/10 --Patient goal(s): none stated Objective: Squat: unable to perform deep squat without pain/locking of the R knee Knee AROM WFL BLE, pain and locking at end range R knee Strength: Right Left Iliopsoas Quads 4+/5 5/5 Hamstrings 4+/5 5/5 Glut max Glut med Functional ability: sit <-> stand: some pain with transitional movement and clicking R knee Special tests: pain and clicking with Mary test R knee, neg L knee Medial and lateral valgus/varus stress test neg BLE Palpation: moderate tenderness to palpation R lateral knee on joint line Treatment: Initial Evaluation Therapeutic exercise: Pt was instructed in and demonstrated independence with current HEP x 1 (pt was provided with handouts): 1. STRAIGHT LEG RAISE - Repeat 10 Times Hold 3 Seconds Complete 3 Sets Perform 1 Times a Day 2. WALL SQUATS - Repeat 10 Times Hold 3 Seconds Complete 3 Sets Perform 5 Times a Week 3. TERMINAL KNEE EXTENSION - TKE - Repeat 10 Times Hold 5 Seconds Complete 3 Sets Perform 5 Times a Week 4. LATERAL MONSTER WALK - ELASTIC BAND AT THIGHS SIDE STEPS - Repeat 5 Times Hold 1 Second Complete 2 Sets Perform 5 Times a Week 5. ILIOTIBIAL BAND STRETCH WITH BELT - ITB - Repeat 3 Times Hold 20 Seconds Complete 1 Set Perform 2 Times a Day 6. HEEL SLIDES - SUPINE - Repeat 10 Times Hold 1 Second Complete 3 Sets Perform 1 Times a Day Assessment: Patient presents to therapy with chief complaint of R knee pain and ROM limitations, with c/o locking during knee flexion and turning. PT objective findings and MRI report consistent with lateral meniscus tear of R knee. Pt would benefit from PT to address impairments for strengthening/conditioning and stretching and modalities as needed for pain management and to improve functional mobility and activity tolerance. Patient verbalizes and demos understanding with education provided this session and agreeable to PT POC. --Complexity of eval: [x] Low [] Medium [] High -Complexity of eval due to: -Co-morbidities: -Personal Factors: -Examination: -Elements addressed: -Outcome measure: -Clinical Presentation: - [x] Stable and/or Uncomplicated - [] Evolving Clinical Presentation with Changing Clinical Characteristics: - [] Unstable And Unpredictable Characteristics Physical Therapy Diagnosis: Force production deficit Goals: Short term: (4 weeks) 1) Pt will demonstrate independence with current HEP x 1 2) Pt will verbalize pain at worst 5/10 intermediate card tender: (12 weeks) 1) Pt will demonstrate independence with final HEP x 1 2) Pt will verbalize pain at worst 3/10 --REHABILITATION POTENTIAL: [] POOR - Limited potential for improvement. [] GUARDED - There exists a question of the potential for improvement [] FAIR - Presents with the potential to improve in some areas while other deficits may remain unchanged. [x] GOOD - Presents with the potential to improve to a level of functional independence, though may continue to demonstrate certain minimal limitations with consistent performance of HEP. [] EXCELLENT - Presents with the potential to fully recover with no residual deficits. --CONTINUED SKILLED THERAPY NEEDED TO ADDRESS THE FOLLOWING IMPAIRMENTS/FUNCTIONAL LIMITATIONS AND EDUCATIONAL NEEDS: [x] Pain: [x] Physiological impairments of: [] Balance: [x] ROM: [x] Strength: [] Other: [] ADL deficits: [] WB activities: [] Self-care: [] Other: [x] Education needs: Individual(s) involved: [x] Patient: [] Caregiver: [x] Achieving (I) with home program: [] Gain further of understanding of self-management of condition: [] Self-Care: [] Caregiver education: [] Other: Equipment Pt Currently Has: theraband Plan: 1x/week for manual therapy, patient education, therapeutic exercise and activity, gait training, neuro reeducation and modalities PRN. I f this is the last PT visit then this documentation serves as the discharge note as well. --PATIENT EDUCATION DOCUMENTATION: Person(s) who received education: [x] Patient; [] Family: [] Other: Education Topic/Teaching Needs: [x] Home program: [x] Why compliance with home program is important [] Regarding automated call/letter regarding scheduled appointment; two no show policy; late arriving for appointment; follow up appointment lengths. [] TENS [x] Nature of condition [] Other: Methods used Included: [x] Handout(s): [x] Home program: [] Why compliance with home program is important [] Regarding automated call/letter regarding scheduled appointment; two no show policy; late arriving for appointment; follow up appointment lengths. [] TENS [] Other: [x] One-on one: [x] Verbal instructions [x] Visual instructions [] Tactile cues. [] Other: Teaching Outcomes: [x] Good; [] Fair; [] Poor [x] Patient acknowledged understanding of instruction [] Family/Other acknowledged understanding of instruction /es/ ELISE HAWLEY PHYSICAL THERAPIST Signed: 06/06/2024 16:24 ELISE HAWLEY [facility]
--- OUTSIDE RECORDS SUMMARY | 2024-08-20 08:18 | XMS_ITS | Encounter Summary ---
Author Name [facility] [place] [facility] [place] Address [address] [place] [address] Care Team Providers Care Icer Machine Operator Name Role Phone GEENA DELACRUZ Primary Care [...] AID (WNR) Jun 23, 2020 MEDICAI D [id number] [phone] Franchesca MUJICA PATIENT Selected Encounter This section includes the information on record at [place] for the Encounter. Date/Time Encounter Type Encounter Description Reason Provider Source Apr 10, 2024 11:00 AM OFFICE O/P EST MOD 30 MIN PRIMARY CARE/MEDICINE ICD-10-CM F43.10 Post-traumatic stress disorder, unspecified CATARINA DELACRUZ Encounter Template Text not used by [place] Assessments - Encounter Diagnoses This section includes the primary and secondary diagnoses documented for the Encounter. Date/Time Primary/Secondary Diagnosis Diagnosis Name Provider Source Apr 10, 2024 12:41 PM PRIMARY Post-traumatic stress disorder, unspecified CATARINA DELACRUZ [facility] Apr 10, 2024 12:41 PM SECONDARY Attn-defct hyperactivity disorder, predom inattentive type CATARINA DELACRUZ [facility] Apr 10, 2024 12:41 PM SECONDARY Erythema intertrigo CATARINA DELACRUZ [facility] Apr 10, 2024 12:41 PM SECONDARY Hyperlipidemia, unspecified CATARINA DELACRUZ [facility] Apr 10, 2024 12:41 PM SECONDARY Pain in right knee CATARINA DELACRUZ [facility] Apr 10, 2024 12:41 PM SECONDARY Sleep apnea, unspecified [facility]CATARINA CHAMBERS [facility] Plan of Treatment: Future Appointments (+ 6 months) and Future Tests (+/- 45 days) The Plan of Treatment section includes future care activities for the patient from all [place] [facility]. This section includes future appointments and future orders which are active, pending or scheduled. Future Appointments This section includes appointments that were scheduled to occur 6 months from the date of the Encounter, up to a maximum of 20 appointments. The data comes from all [facility]. Appointment Date/Time Appointment Type Appointme nt Facility Name Apr 24, 2024 03:00 PM AMBULATORY - MEDICINE [facility] Apr 25, 2024 01:30 PM AMBULATORY - PSYCHIATRY [facility] May 10, 2024 09:00 AM AMBULATORY - MEDICINE [facility] May 21, 2024 10:00 AM AMBULATORY - MEDICINE [facility] May 29, 2024 10:00 AM AMBULATORY - MEDICINE [facility] May 31, 2024 10:00 AM AMBULATORY - NONE [facility] Jun 06, 2024 01:00 PM AMBULATORY - REHAB MEDICIN E [facility] Jun 29, 2024 09:30 AM AMBULATORY - REHAB MEDICIN E [facility] Jul 07, 2024 09:15 PM AMBULATORY - MEDICINE [facility] October 08, 2024 02:30 PM AMBULATORY - MEDICINE [facility] Active, Pending, and Scheduled Orders This section includes a listing of several types of active, pending, and scheduled orders, including clinic medications orders, diagnostic test orders, procedure orders and consult orders; where the start date of the order is 45 days before the date of the Encounter or 45 days after the date of theEncounter. The data comes from all [place] treatment facilities. Test Date/Time Test Type Test Details Facility Name Apr 10, 2024 12:00 AM Laboratory - Chemistry Order HGA1C BLOOD SP [facility] Apr 10, 2024 12:00 AM Laboratory - Chemistry Order VITAMIN D, 25-HYDROXY GOLD/RED SST SERUM SP [facility] Apr 10, 2024 12:00 AM Laboratory - Chemistry Order COMPREHENSIVE METABOLIC PANEL GREEN LI/HEP BLD/PLAS PLASMA SP [facility] Apr 10, 2024 12:00 AM Laboratory - Chemistry Order CBC BLOOD [facility] Apr 10, 2024 12:00 AM Laboratory - Chemistry Order TSH (MA-PB) GOLD/RED SST SERUM SP [facility] Apr 10, 2024 12:00 AM Laboratory - Chemistry Order URINE DRUG SCREEN (STL) URINE YELLOW SP [facility] Apr 10, 2024 12:00 AM Laboratory - Chemistry Order LIPID PANEL (STL) GREEN LI/HEP BLD/PLAS PLASMA [facility] May 21, 2024 10:04 AM Consult Order COMMUNITY CARE-STL SLEEP STUDY Cons Middleware Developer's Choice [facility] Lab Results: +/- 30 days of the encounter This section includes the Chemistry and Hematology Lab Results on record with [place] for the patient. Radiology Reports and Pathology Reports are provided separately, in subsequent sections. Lab Results This section contains the Chemistry/Hematology Results that were resulted 30 days before or 30 daysafter the date of the Encounter. Date/Time Source Result Type Result - Unit Interpretation Reference Range Comment Mar 23, 2024 10:49 AM [facility] GC & CHLAMYDIA PCR (STL-PB) Specimen Type: URINE Comment: This is a qualitative real-time PCR test for the detection and differentiation of genomic DNA from Chlamydia trachomatis (CT) [...] NG) to recover the organism for further characterization and susceptibility testing. All results must be combined with clinical observations, patient history, and epidemiological information for final interpretation. Ordering Provider: NHI MONTILLA Report Released Date/Time: Mar 23, 2024 10:34 AM Reporting Lab: [facility] [address] [place] [phone] Performing Lab: [place] [address] [facility] [phone] N.GONORRHOEA E PCR (STL) Not Detected Not Detected C.TRACHOMATI S PCR (STL) Not Detected Not Detected Mar 23, 2024 10:[address] [facility] TRICHOMONAS PCR (STL-PB) Specimen Type: URINE Comment: Qualitative real-time PCR [...] All results must be combined with clinical observations, patient history, and epidemiological information for final interpretation. Ordering Provider: NHI MONTILLA Report Released Date/Time: Mar 23, 2024 10:34 AM Reporting Lab: [facility] [address] [place] [phone] Performing Lab: [facility] [address] [place] [phone] TRICHOMONAS PCR (STL-PB) Not Detected Not Detected Mar 23, 2024 10:[address] [facility] RAPID PLASMA REAGIN (RPR) Specimen Type: SERUM No comment entered. Ordering Provider: NHI MONTILLA Report Released Date/Time: Mar 23, 2024 10:34 AM Reporting Lab: [facility] [address] [facility] [phone] Performing Lab: [facility] [address] [place] [phone] RAPID PLASMA REAGIN (RPR) NONREACTIVE NONREACTIVE Mar 23, 2024 10:[address] [facility] HIV COMBO FOURTH GENERATION (STL) Specimen Type: SERUM No comment entered. Ordering Provider: NHI MONTILLA Report Released Date/Time: Mar 23, 2024 10:34 AM Reporting Lab: [facility] [address] [facility] [phone] Performing Lab: [address] [phone] HIV COMBO FOURTH GENERATION (STL) Nonreactive Nonreactive Mar 23, 2024 10:[address] [facility] HEP C Ab HCV Ab (STL) Specimen Type: SERUM No comment entered. Ordering Provider: NHI MONTILLA Report Released Date/Time: Mar 23, 2024 10:34 AM Reporting Lab: [place] [address] [facility] [phone] Performing Lab: [address] [phone] HEP C Ab HCV Ab (STL) Nonreactive Nonreactive Vital Signs: All taken on the encounter date This section contains inpatient and outpatient Vital Signs collected on the date of the Encounter. Date/Time Temperature Pulse Blood Pressure Respiratory Rate SP02 Pain Height Weight Body Mass Index Source Apr 10, 2024 11:29 AM 98.5 76 137/84 20 223.1 31 [facility] Social History: Smoking Status (Most current) and Tobacco Use (All prior to encounter date) This section includes the most current, and the historical, smoking and tobacco- related health factors from the [place] facility where the Encounter took place. Current Smoking Status This section includes the most current smoking, or tobacco-related health factor, from the [place] facility where the Encounter took place. Date/Time Current Smoking Status Comment Facil ity Apr 10, 2024 11:00 AM VA-TOBACCO USE FOR FELICE CIGARETTES [facility] Tobacco Use History This section includes a history of the smoking, or tobacco-related health factors, that were collected on or before the date of the Encounter. The data comes from the [place] facility where the Encounter took place. Date/Time Smoking Status/Tobacco Use Comment F acility Apr 10, 2024 11:00 AM VA-TOBACCO USE FOR FELICE OTHER TYPE [facility] September 28, 2021 02:00 PM VA-TOBACCO DOESNT USE WI 30 MIN WAKEUP [facility] September 28, 2021 02:00 PM VA-TOBACCO USE < 1 YEAR [facility] September 28, 2021 02:00 PM VA-TOBACCO USE ADVICE [facility] September 28, 2021 02:00 PM VA-TOBACCO USE HEEL SEAT POUNDER NO [facility] September 28, 2021 02:00 PM VA-TOBACCO USE MED NO [facility] September 28, 2021 02:00 PM VA-TOBACCO USER EVERY DAY [facility] Advance Directives: All historical and current Section Date Range: From patient's date of to the date document was created. This section includes ALL of a patient's completed or amended [place] Advance and Rescinded Directives. The entries below indicate that a directive exists for the patient, but an actual copy is not included with this document. The data comes from all [place] facilities. Date Advance Directives Provider Source May 23, 2007 ADVANCE DIRECTIVE DISCUSSION SAI [facility] Radiology Reports: +/- 30 days of the [...] the Encounter. The data comes from all [place] treatment facilities. Date/Time Radiology Report Provider Source Mar 23, 2024 10:50 AM KNEE,RIGHT 3 VIEWS : SWATI MUJICA [id number] -[phone] M Exm Date: MAR 23, 2024@10:50 Req Phys: NHI MONTILLA Pat Loc: [facility] (Re Img Loc: [facility] RADIOLOGY SUITE Service: [facility], [address] [place] [address] (Case [id number] COMPLETE) KNEE,RIGHT 3 VIEWS (RAD Detailed) CPT:63459 Proc Modifiers : RIGHT, LATERAL, Stand AP, [place] Reason for Study: right knee pain Clinical History: Report Status: Verified Date Reported: MAR 23, 2024 Date Verified: MAR 23, 2024 Dairy Processing Supervisor E-Sig:/JORDAN/SUSY HERNANDEZ MD Report: Case #[id number]. Right knee examination. Finding: AP and lateral views of the right knee examination followed by sunrise view of the patella shows no fracture dislocation. No evidence of lytic or blastic bony lesion. No joint space narrowing or suprapatellar effusion. No radiopaque foreign body or abnormal calcification. Impression: Normal study. Primary Interpreting Staff: SUSY HERNANDEZ MD, Staff Physician - Radiologist (Dairy Processing Supervisor) /SUSY HARVEY [facility] Encounter Notes: All associated encounter notes This section contains the clinical notes associated to the Encounter. Date/Time Encounter Note(s) Provider Source Jun 12, 2024 08:35 AM ADDENDUM: LOCAL TITLE: Addendum STANDARD TITLE: ADDENDUM DATE OF NOTE: JUN 12, 2024@08:35:03 ENTRY DATE: JUN 12, 2024@08:35:04 AUTHOR: GEENA DELACRUZ EXP COSIGNER: URGENCY: STATUS: COMPLETED CC is requesting sleep study report from [facility] 12/14/23? Please obtain records. /jordan/ MICHAEL CONNELLY NURSE PRACTITIONER Signed: 06/12/2024 08:35 Receipt Acknowledged By: 06/14/2024 09:55 /jordan/ Casper Pereira Rn, BSN REGISTERED NURSE for MAUREEN MINOR --- Original Document --- 04/10/24 PRIMARY CARE PROVIDER ESTABLISHED VISIT STL: REASON FOR VISIT/CHIEF COMPLAINT: Routine HPI: presents today for chronic conditions. groin rash: Affecting bilateral groin. He exercises often and the area is chronically moist. This is different than the infected hair follicle he had earlier this month. Using OTC creams, but not clearing. right knee pain: Frequent locking and popping. When this occurs, he experiences severe lateral point tenderness and must manipulate his knee a certain way or the pain makes him want to cry. No injury that he can recall. Recent x-rays were negative. ADHD/PTSD: Following with mental health and taking Adderall. Needs refill. Trouble with focis and concentration. Otherwise, his mood is pretty stable. No SI/HI. Leaving for [place] with girlfriend and able to look forward to future events. hyperlipidemia: Taking atorvastatin and denies myalgias or myopathies. sleep apnea: This was noted on prior sleep study. Awaiting approval for [employer]. 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 MEDICATIONS: Active and Recently Outpatient Medications (excluding Supplies): Active Outpatient Medications Status 1) BUPROPION HCL 150MG 24HR SA TAB TAKE TWO TABLETS BY ACTIVE MOUTH ONCE A DAY SWALLOW WHOLE - DO NOT CRUSH OR CHEW. 2) DOXYCYCLINE MONOHYDRATE 100MG CAP TAKE ONE CAPSULE BY ACTIVE MOUTH TWICE A DAY TAKE UNTIL FINISHED. AVOID SUN EXPOSURE WHILE TAKING. 3) MELOXICAM 15MG TAB TAKE ONE TABLET BY MOUTH ONCE A ACTIVE DAY Pending Outpatient Medications Status 1) FLUCONAZOLE 150MG TAB TAKE ONE TABLET BY MOUTH PENDING ONE-TIME 2) NYSTATIN [id number] UNT/GM CREAM APPLY LIGHTLY TO PENDING AFFECTED AREA(S) THREE TIMES A DAY - TOPICAL USE ONLY. Inactive Outpatient Medications Status 1) ATORVASTATIN CALCIUM 40MG TAB TAKE ONE-HALF TABLET BY MOUTH EVERY EVENING TO LOWER CHOLESTEROL Active Non-VA Medications Status 1) Non-VA NON-FORMULARY TAB ANTIDEPRESSANT BY MOUTH ONCE ACTIVE A DAY 7 Total Medications MEDICATION RECONCILIATION: I have reviewed the patient's medication list with the patient and/or his/her care-radiation therapy technician. Handwritten corrections, additions and/or deletions were made to the list. Corrected Outpatient Medication List was provided to the patient/caregiver. REVIEW OF SYSTEMS: General: Denies fever or chills, and unexplained weight loss Ears, Nose, Mouth, Throat: Denies hearing loss, nasal drainage or sore throat Endo: Denies heat or cold intolerance, polydipsia, polyuria, or polyphagia Cardiovascular: Denies chest pain, palpitations, or dizziness Respiratory: Denies SOB, cough, sputum, and wheezing ABD/GI: Denies abdominal pain, N/V/D, constipation, heartburn, anorexia, dysphagia, hematochezia, melena, or flatulence Musculoskeletal/Extremities : Denies joint swelling/stiffness/pain, back pain, neck pain and edema /BI SPECIALIST: Denies dysuria, flank pain, frequency, hesitancy, urgency, or hematuria Psych: Denies depression, anxiety, insomnia, SI/HI Neuro: Denies weakness, numbness, syncope, dizziness, CONWAY, tremors, neuropathy Skin: Denies rashes, skin lesions PHYSICAL EXAMINATION: VITALS (most recent, as listed in the electronic record): Temperature: 98.5 F [36.9 C] (04/10/2024 11:29) BP: 137/84 (04/10/2024 11:29) Pulse: 76 (04/10/2024 11:29) Resp: 20 (04/10/2024 11:29) PulsOx: 97% (03/23/2024 09:17) Pain: 7 (03/23/2024 09:17) Weight: Measurement DT WEIGHT LB(KG)[BMI] 04/10/2024 11: 223.1(101.20)[31*] 03/23/2024 09:17 218.7(99.20)[31*] 03/23/2024 09:17 218.7(99.20)[31*] General: pleasant, well appearing adult female in no apparent distress HEENT: mucus membranes moist, oropharynx clear, TMs normal, PERRL, EOMI Neck: supple, no lymphadenopathy or thyromegaly, no carotid bruits Heart: regular rate and rhythm; no murmurs, rubs, or gallops Lungs: respirations regular and non-labored; CTA BL; no wheezes, rhonchi, or rales Abdomen: soft, nontender, nondistended, bowel sounds normal Extremities: warm, well-perfused; no clubbing, cyanosis, or edema; 2+ PT pulses BL Skin: no rashes or lesions noted; good turgor Neuro: A&O x 3, gait steady and normal-based, CN II-XI intact Psych: appropriate mood and affect DATA REVIEW: HGA1C 5.3 % 03/10/2023 16:43 Lipid Panel: TRIGLYCERIDE 152 H mg/dL 03/10/2023 16:43 CHOLESTEROL 214 H mg/dL 03/10/2023 16:43 HDL(New) 41 mg/dL 03/10/2023 16:43 CALCULATED LDL 143 mg/dL 03/10/2023 16:43 CMP: SODIUM 136 mEq/L 05/02/2023 17:00 POTASSIUM 3.9 mEq/L 05/02/2023 17:00 CHLORIDE 105 mEq/L 05/02/2023 17:00 UREA NITROGEN 9.2 mg/dL 05/02/2023 17:00 CREATININE 1.16 mg/dL 05/02/2023 17:00 CALCIUM 9.0 mg/dL 05/02/2023 17:00 PROTEIN 7.2 g/dL 05/02/2023 17:00 ALBUMIN 4.3 g/dL 05/02/2023 17:00 ALKALINE PHOSPHATASE 89 U/L 05/02/2023 17:00 ALT/SGPT 19 U/L 05/02/2023 17:00 AST/SGOT 15 U/L 05/02/2023 17:00 TOTAL BILIRUBIN 1.7 H mg/dL 05/02/2023 17:00 CARBON DIOXIDE 21 L mEq/L 05/02/2023 17:00 GLUCOSE 96 mg/dL 05/02/2023 17:00 EGFR (CKD-EPI 2020) 80.2 05/02/2023 17:00 CBC: WBC 20.3 H 10*3/uL 05/02/2023 17:00 RBC 4.64 10*6/uL 05/02/2023 17:00 HGB 14.4 g/dL 05/02/2023 17:00 HCT 42.5 % 05/02/2023 17:00 MCV 91.6 fL 05/02/2023 17:00 MCH 31.0 pg 05/02/2023 17:00 MCHC 33.9 g/dL 05/02/2023 17:00 RDW 12.6 % 05/02/2023 17:00 PLT 259 10*3/uL 05/02/2023 17:00 MPV 9.7 fL 05/02/2023 17:00 NEUTROPHILS 81.7 % 05/02/2023 17:00 BAND NEUTROPHILS 2.6 % 05/02/2023 17:00 LYMPHOCYTES 7.0 % 05/02/2023 17:00 MONOCYTES 4.4 % 05/02/2023 17:00 EOSINOPHILS 2.6 % 05/02/2023 17:00 BASOPHILS 1.7 % 05/02/2023 17:00 PSA: No PSA EO data found Result: Acceptable Follow-up Action: labs ordered___ Data results reviewed with patient and/or caregiver. ASSESSMENT/PLAN: groin rash: This is fungal. May apply Nystatin cream three times daily and take diflucan 150mg x 1 right knee pain: Suspect meniscal tear. Check MRI and refer for PT. ADHD/PTSD: Mental health following. Alerting broadcast traffic coordinator to refill request. Hyperlipidemia: Tolerating statin. Check lipids to assess efficacy. Sleep apnea: PACT team to reach out to sleep medicine for CC consult. HEALTH MAINTENANCE: CRC screen - begin screening at 45 age 45 - 75 for average risk No PSA (LAST 10 5Y) EO data found age 45 - 75 for average risk ADMINISTERED Immunization Series Date Facility Reaction Info COVID-19 (PFIZER), MRNA, LNP-S, * 3 08/16/2021 [facility]* COVID-19 (PFIZER), MRNA, LNP-S, * 2 09/15/2020 [facility] COVID-19 (PFIZER), MRNA, LNP-S, * 1 08/22/2020 [facility] COVID-19 (PFIZER), MRNA, LNP-S, * 3 08/16/2021 [facility] HEP B, ADULT 1 02/17/2024 [facility] TDAP 04/15/2014 [facility] * <C> CONTRAINDICATED No data available REFUSED ======= Immunization Date Facility Info COVID-19 (MODERNA), MRNA, LNP-S,* 03/10/2023 [facility] <I> INFLUENZA, UNSPECIFIED FORMULATI* 09/05/2023 [facility] <I> INFLUENZA, UNSPECIFIED FORMULATI* 03/10/2023 [facility] <I> PNEUMOCOCCAL CONJUGATE, UNSPECIF* 03/10/2023 [facility] <I> <C> See the Detailed Immunizations Health Summary Component[DIM] for Comments <I> See the Detailed Immunizations Health Summary Component[DIM] for Additional Information * Value is truncated; see the Detailed Immunizations Health Summary Component[DIM] for complete text Return to clinic 6 months and sooner PRN SUMMARY STATEMENT: Plan of care has been discussed with including expected therapeutic benefits and potential side effects of prescribed medication and treatments. [place] verbalizes understanding and is in agreement with the plan of care. Patient was instructed to keep all scheduled appointments and contact lift operator for any additional problems. Tobacco Use Screening - U,L,N,S,PS,M,DE,PH,P: The patient is a former cigarette smoker. The patient formerly used other types of tobacco. Depression Screening - V: Perform PHQ-2 A PHQ-2 screen was performed. The score was 0 which is a negative screen for depression. Over the past two weeks, how often have you been bothered by the following problems? 1. Little interest or pleasure in doing things Not at all 2. Feeling down, depressed, or hopeless Not at all Suicide Screen - V: C-SSRS Screening [place]-Suicide Severity Rating Scale (C-SSRS Screener) 1. Over the past month, have you wished you were or wished you could go to sleep and not wake up? No 2. Over the past month, have you had any actual thoughts of killing yourself? No 3. Over the past month, have you been thinking about how you might do this? Response not required due to responses to other questions. 4. Over the past month, have you had these thoughts and had some intention of acting on them? Response not required due to responses to other questions. 5. Over the past month, have you started to work out or worked out the details of how to kill yourself? Response not required due to responses to other questions. 6. If yes, at any time in the past month did you intend to carry out this plan? Response not required due to responses to other questions. 7. In your lifetime, have you ever done anything, started to do anything, or prepared to do anything to end your life (for example, collected pills, obtained a gun, gave away valuables, went to the roof but didn't jump)? Yes 8. If YES, was this within the past 3 months? No /jordan/ MICHAEL CONNELLY NURSE PRACTITIONER Signed: 04/10/2024 12:42 Receipt Acknowledged By: 04/10/2024 13:20 /jordan/ GEENA FULTON RN BSN Registered Nurse 04/13/2024 10:54 /jordan/ MAUREEN MINOR, RN, BSN Registered Nurse 04/10/2024 ADDENDUM STATUS: COMPLETED talked with the Sleep Dr. Marroquin-He has a consult and needs a test to check tongue movement. so Will call in two weeks to followup. He was a little heart broken. If his tongue does not move the right way. /jordan/ MAUREEN MINOR, RN, BSN Registered Nurse Signed: 04/10/2024 16:06 06/07/2024 ADDENDUM STATUS: COMPLETED Please inform the MRI suggests a prior meniscal and PCL injury. Also has some cartilage thinning. Continue PT for now. If pain does not improve, we will consult ortho. /jordan/ MICHAEL CONNELLY NURSE PRACTITIONER Signed: 06/07/2024 09:58 Receipt Acknowledged By: 06/07/2024 11:10 /jordan/ Casper Pereira Rn, BSN REGISTERED NURSE for MAUREEN MINOR GEENA DELACRUZ [facility] Jun 07, 2024 09:57 AM ADDENDUM: LOCAL TITLE: Addendum STANDARD TITLE: ADDENDUM DATE OF NOTE: JUN 07, 2024@09:57:23 ENTRY DATE: JUN 07, 2024@09:57:24 AUTHOR: GEENA DELACRUZ EXP COSIGNER: URGENCY: STATUS: COMPLETED Please inform the MRI suggests a prior meniscal and PCL injury. Also has some cartilage thinning. Continue PT for now. If pain does not improve, we will consult ortho. /jordan/ DG CONNELLY NURSE PRACTITIONER Signed: 06/07/2024 09:58 Receipt Acknowledged By: 06/07/2024 11:10 /jordan/ Casper Pereira Rn, BSN REGISTERED NURSE for MAUREEN MINOR --- Original Document --- 04/10/24 PRIMARY CARE PROVIDER ESTABLISHED VISIT STL: REASON FOR VISIT/CHIEF COMPLAINT: Routine HPI: presents today for chronic conditions. groin rash: Affecting bilateral groin. He exercises often and the area is chronically moist. This is different than the infected hair follicle he had earlier this month. Using OTC creams, but not clearing. right knee pain: Frequent locking and popping. When this occurs, he experiences severe lateral point tenderness and must manipulate his knee a certain way or the pain makes him want to cry. No injury that he can recall. Recent x-rays were negative. ADHD/PTSD: Following with mental health and taking Adderall. Needs refill. Trouble with focis and concentration. Otherwise, his mood is pretty stable. No SI/HI. Leaving for [place] with girlfriend and able to look forward to future events. hyperlipidemia: Taking atorvastatin and denies myalgias or myopathies. sleep apnea: This was noted on prior sleep study. Awaiting approval for [employer]. 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 MEDICATIONS: Active and Recently Outpatient Medications (excluding Supplies): Active Outpatient Medications Status 1) BUPROPION HCL 150MG 24HR SA TAB TAKE TWO TABLETS BY ACTIVE MOUTH ONCE A DAY SWALLOW WHOLE - DO NOT CRUSH OR CHEW. 2) DOXYCYCLINE MONOHYDRATE 100MG CAP TAKE ONE CAPSULE BY ACTIVE MOUTH TWICE A DAY TAKE UNTIL FINISHED. AVOID SUN EXPOSURE WHILE TAKING. 3) MELOXICAM 15MG TAB TAKE ONE TABLET BY MOUTH ONCE A ACTIVE DAY Pending Outpatient Medications Status 1) FLUCONAZOLE 150MG TAB TAKE ONE TABLET BY MOUTH PENDING ONE-TIME 2) NYSTATIN 101266 UNT/GM CREAM APPLY LIGHTLY TO PENDING AFFECTED AREA(S) THREE TIMES A DAY - TOPICAL USE ONLY. Inactive Outpatient Medications Status 1) ATORVASTATIN CALCIUM 40MG TAB TAKE ONE-HALF TABLET BY MOUTH EVERY EVENING TO LOWER CHOLESTEROL Active Non-VA Medications Status 1) Non-VA NON-FORMULARY TAB ANTIDEPRESSANT BY MOUTH ONCE ACTIVE A DAY 7 Total Medications MEDICATION RECONCILIATION: I have reviewed the patient's medication list with the patient and/or his/her care-radiation therapy technician. Handwritten corrections, additions and/or deletions were made to the list. Corrected Outpatient Medication List was provided to the patient/caregiver. REVIEW OF SYSTEMS: General: Denies fever or chills, and unexplained weight loss Ears, Nose, Mouth, Throat: Denies hearing loss, nasal drainage or sore throat Endo: Denies heat or cold intolerance, polydipsia, polyuria, or polyphagia Cardiovascular: Denies chest pain, palpitations, or dizziness Respiratory: Denies SOB, cough, sputum, and wheezing ABD/GI: Denies abdominal pain, N/V/D, constipation, heartburn, anorexia, dysphagia, hematochezia, melena, or flatulence Musculoskeletal/Extremities : Denies joint swelling/stiffness/pain, back pain, neck pain and edema /BI SPECIALIST: Denies dysuria, flank pain, frequency, hesitancy, urgency, or hematuria Psych: Denies depression, anxiety, insomnia, SI/HI Neuro: Denies weakness, numbness, syncope, dizziness, CONWAY, tremors, neuropathy Skin: Denies rashes, skin lesions PHYSICAL EXAMINATION: VITALS (most recent, as listed in the electronic record): Temperature: 98.5 F [36.9 C] (04/10/2024 11:29) BP: 137/84 (04/10/2024 11:29) Pulse: 76 (04/10/2024 11:29) Resp: 20 (04/10/2024 11:29) PulsOx: 97% (03/23/2024 09:17) Pain: 7 (03/23/2024 09:17) Weight: Measurement DT WEIGHT LB(KG)[BMI] 04/10/2024 11: 223.1(101.20)[31*] 03/23/2024 09:17 218.7(99.20)[31*] 03/23/2024 09:17 218.7(99.20)[31*] General: pleasant, well appearing adult female in no apparent distress HEENT: mucus membranes moist, oropharynx clear, TMs normal, PERRL, EOMI Neck: supple, no lymphadenopathy or thyromegaly, no carotid bruits Heart: regular rate and rhythm; no murmurs, rubs, or gallops Lungs: respirations regular and non-labored; CTA BL; no wheezes, rhonchi, or rales Abdomen: soft, nontender, nondistended, bowel sounds normal Extremities: warm, well-perfused; no clubbing, cyanosis, or edema; 2+ PT pulses BL Skin: no rashes or lesions noted; good turgor Neuro: A&O x 3, gait steady and normal-based, CN II-XI intact Psych: appropriate mood and affect DATA REVIEW: HGA1C 5.3 % 03/10/2023 16:43 Lipid Panel: TRIGLYCERIDE 152 H mg/dL 03/10/2023 16:43 CHOLESTEROL 214 H mg/dL 03/10/2023 16:43 HDL(New) 41 mg/dL 03/10/2023 16:43 CALCULATED LDL 143 mg/dL 03/10/2023 16:43 CMP: SODIUM 136 mEq/L 05/02/2023 17:00 POTASSIUM 3.9 mEq/L 05/02/2023 17:00 CHLORIDE 105 mEq/L 05/02/2023 17:00 UREA NITROGEN 9.2 mg/dL 05/02/2023 17:00 CREATININE 1.16 mg/dL 05/02/2023 17:00 CALCIUM 9.0 mg/dL 05/02/2023 17:00 PROTEIN 7.2 g/dL 05/02/2023 17:00 ALBUMIN 4.3 g/dL 05/02/2023 17:00 ALKALINE PHOSPHATASE 89 U/L 05/02/2023 17:00 ALT/SGPT 19 U/L 05/02/2023 17:00 AST/SGOT 15 U/L 05/02/2023 17:00 TOTAL BILIRUBIN 1.7 H mg/dL 05/02/2023 17:00 CARBON DIOXIDE 21 L mEq/L 05/02/2023 17:00 GLUCOSE 96 mg/dL 05/02/2023 17:00 EGFR (CKD-EPI 2020) 80.2 05/02/2023 17:00 CBC: WBC 20.3 H 10*3/uL 05/02/2023 17:00 RBC 4.64 10*6/uL 05/02/2023 17:00 HGB 14.4 g/dL 05/02/2023 17:00 HCT 42.5 % 05/02/2023 17:00 MCV 91.6 fL 05/02/2023 17:00 MCH 31.0 pg 05/02/2023 17:00 MCHC 33.9 g/dL 05/02/2023 17:00 RDW 12.6 % 05/02/2023 17:00 PLT 259 10*3/uL 05/02/2023 17:00 MPV 9.7 fL 05/02/2023 17:00 NEUTROPHILS 81.7 % 05/02/2023 17:00 BAND NEUTROPHILS 2.6 % 05/02/2023 17:00 LYMPHOCYTES 7.0 % 05/02/2023 17:00 MONOCYTES 4.4 % 05/02/2023 17:00 EOSINOPHILS 2.6 % 05/02/2023 17:00 BASOPHILS 1.7 % 05/02/2023 17:00 PSA: No PSA EO data found Result: Acceptable Follow-up Action: labs ordered___ Data results reviewed with patient and/or caregiver. ASSESSMENT/PLAN: groin rash: This is fungal. May apply Nystatin cream three times daily and take diflucan 150mg x 1 right knee pain: Suspect meniscal tear. Check MRI and refer for PT. ADHD/PTSD: Mental health following. Alerting broadcast traffic coordinator to refill request. Hyperlipidemia: Tolerating statin. Check lipids to assess efficacy. Sleep apnea: PACT team to reach out to sleep medicine for CC consult. HEALTH MAINTENANCE: CRC screen - begin screening at 45 age 45 - 75 for average risk No PSA (LAST 10 5Y) EO data found age 45 - 75 for average risk ADMINISTERED Immunization Series Date Facility Reaction Info COVID-19 (ChatStat), MRNA, LNP-S, * 3 08/16/2021 [facility] COVID-19 (PFIZER), MRNA, LNP-S, * 2 09/15/2020 [facility] COVID-19 (PFIZER), MRNA, LNP-S, * 1 08/22/2020 [facility] COVID-19 (PFIZER), MRNA, LNP-S, * 3 08/16/2021 [facility] HEP B, ADULT 1 02/17/2024 [facility] TDAP 04/15/2014 [facility] * <C> CONTRAINDICATED No data available REFUSED ======= Immunization Date Facility Info COVID-19 (MODERNA), MRNA, LNP-S,* 03/10/20[facility] <I> INFLUENZA, UNSPECIFIED FORMULATI* 09/05/2023 [facility] <I> INFLUENZA, UNSPECIFIED FORMULATI* 03/10/2023 [facility] <I> PNEUMOCOCCAL CONJUGATE, UNSPECIF* 03/10/2023 [facility] <I> <C> See the Detailed Immunizations Health Summary Component[DIM] for Comments <I> See the Detailed Immunizations Health Summary Component[DIM] for Additional Information * Value is truncated; see the Detailed Immunizations Health Summary Component[DIM] for complete text Return to clinic 6 months and sooner PRN SUMMARY STATEMENT: Plan of care has been discussed with including expected therapeutic benefits and potential side effects of prescribed medication and treatments. [place] verbalizes understanding and is in agreement with the plan of care. Patient was instructed to keep all scheduled appointments and contact lift operator for any additional problems. Tobacco Use Screening - U,L,N,S,PS,M,DE,PH,P: The patient is a former cigarette smoker. The patient formerly used other types of tobacco. Depression Screening - V: Perform PHQ-2 A PHQ-2 screen was performed. The score was 0 which is a negative screen for depression. Over the past two weeks, how often have you been bothered by the following problems? 1. Little interest or pleasure in doing things Not at all 2. Feeling down, depressed, or hopeless Not at all Suicide Screen - V: C-SSRS Screening [place]-Suicide Severity Rating Scale (C-SSRS Screener) 1. Over the past month, have you wished you were or wished you could go to sleep and not wake up? No 2. Over the past month, have you had any actual thoughts of killing yourself? No 3. Over the past month, have you been thinking about how you might do this? Response not required due to responses to other questions. 4. Over the past month, have you had these thoughts and had some intention of acting on them? Response not required due to responses to other questions. 5. Over the past month, have you started to work out or worked out the details of how to kill yourself? Response not required due to responses to other questions. 6. If yes, at any time in the past month did you intend to carry out this plan? Response not required due to responses to other questions. 7. In your lifetime, have you ever done anything, started to do anything, or prepared to do anything to end your life (for example, collected pills, obtained a gun, gave away valuables, went to the roof but didn't jump)? Yes 8. If YES, was this within the past 3 months? No /jordan/ KAMILA CONNELLY-JOHN PAUL NURSE PRACTITIONER Signed: 04/10/2024 12:42 Receipt Acknowledged By: 04/10/2024 13:20 /jordan/ GEENA FULTON CREDIT DIRECTOR Registered Nurse 04/13/2024 10:54 /jordan/ MAUREEN MINOR, RN, BSN Registered Nurse 04/10/2024 ADDENDUM STATUS: COMPLETED talked with the Sleep Dr. Marroquin-He has a consult and needs a test to check tongue movement. so Will call in two weeks to followup. He was a little heart broken. If his tongue does not move the right way. /jordan/ MAUREEN MINOR, RN, BSN Registered Nurse Signed: 04/10/2024 16:06 GEENA DELACRUZ [facility] Jun 07, 2024 09:56 AM PHYSICIAN LETTERS: LOCAL TITLE: TEST RESULT GENERAL LETTER ST STANDARD TITLE: PHYSICIAN LETTERS DATE OF NOTE: JUN 07, 2024@09:56 ENTRY DATE: JUN 07, 2024@09:56:12 AUTHOR: GEENA DELACRUZ EXP COSIGNER: URGENCY: STATUS: COMPLETED [facility] [address] [place] [address] JUN 07, 2024 SWATI MUJICA [address] [place] [id number] Dear Swati Mujica, I would like to update you on your recent test results. OTHER TEST RESULTS PROCEDURES: MRI KNEE RIGHT FINDINGS: The anterior [...] cartilage thinning. Other findings as discussed above. Continue PT for now. If pain does not improve after completing therapy, we will consult ortho. FUTURE APPOINTMENTS: 07/07/2024 21:15 [facility] CARE-STL SLEEP STUDY 10/08/2024 14:30 [facility] CLR PACT 5 PCP 11/12/2024 15:30 [facility] GEE DELACRUZ Sincerely, GEENA DELACRUZ, ANP- NURSE PRACTITIONER SWATI MUJICA,GEENA HENDERSON [facility] Apr 10, 2024 11:31 AM NURSING NOTE: LOCAL TITLE: V15 PACT FACE TO FACE NOTE STL STANDARD TITLE: NURSING NOTE DATE OF NOTE: APR 10, 2024@11:31 ENTRY DATE: APR 10, 2024@11:31:15 AUTHOR: KIMI MCBRIDE COSIGNER: URGENCY: STATUS: COMPLETED Provider Visit: Patient Identifiers : Full Name Date of Reason for visit: Established Follow-Up Mode of Arrival: Ambulatory Allergy Review: Patient has answered NKA Allergy list reviewed and remains current. Recent Vital Signs: Temperature: 98.5 F [36.9 C] (04/10/2024 11:29) Pulse: 76 (04/10/2024 11:29) Respiration: 20 (04/10/2024 11:29) B/P: 137/84 (04/10/2024 11:29) Pain: 7 (03/23/2024 09:17) Wt: 223.1 lb [101.20 kg] (04/10/2024 11:29) Ht: 71 in [180.3 cm] (09/05/2023 11:12) BMI: 31.2 POX: 97% (03/23/2024 09:17) Would you like to discuss any personal problem, family problem, alcohol use, drug use, or a mental or emotional illness? Yes--for Aderall refills [place] has a [employer] Worker and was provided contact number (listed on [facility] banner) Monthly Adderall, refill wanted Contact provided Primary Care phone number and encouraged to call if any questions or concerns. Review that after hours nurse line [phone] and emergency room are available 13/12 for patient use. Contact verbalized good understanding. Information forwarded to PCP [facility] for intervention. /jordan/ KIMI MCBRIDE REGISTERED NURSE Signed: 04/10/2024 11:35 KIMI MCBRIDE [facility] Apr 10, 2024 11:31 AM PRIMARY CARE NOTE: LOCAL TITLE: PRIMARY CARE PROVIDER ESTABLISHED VISIT [facility] STANDARD TITLE: PRIMARY CARE NOTE DATE OF NOTE: APR 10, 2024@11:31 ENTRY DATE: APR 10, 2024@11:32:01 AUTHOR: GEENA DELACRUZ EXP COSIGNER: URGENCY: STATUS: COMPLETED PRIMARY CARE PROVIDER ESTABLISHED VISIT [facility] Has ADDENDA REASON FOR VISIT/CHIEF COMPLAINT: Routine HPI: [place] presents today for chronic conditions. groin rash: Affecting bilateral groin. He exercises often and the area is chronically moist. This is different than the infected hair follicle he had earlier this month. Using OTC creams, but not clearing. right knee pain: Frequent locking and popping. When this occurs, he experiences severe lateral point tenderness and must manipulate his knee a certain way or the pain makes him want to cry. No injury that he can recall. Recent x-rays were negative. ADHD/PTSD: Following with mental health and taking Adderall. Needs refill. Trouble with focis and concentration. Otherwise, his mood is pretty stable. No SI/HI. Leaving for [place] with girlfriend and able to look forward to future events. hyperlipidemia: Taking atorvastatin and denies myalgias or myopathies. sleep apnea: This was noted on prior sleep study. Awaiting approval for [employer]. 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 MEDICATIONS: Active and Recently Outpatient Medications (excluding Supplies): Active Outpatient Medications Status 1) BUPROPION HCL 150MG 24HR SA TAB TAKE TWO TABLETS BY ACTIVE MOUTH ONCE A DAY SWALLOW WHOLE - DO NOT CRUSH OR CHEW. 2) DOXYCYCLINE MONOHYDRATE 100MG CAP TAKE ONE CAPSULE BY ACTIVE MOUTH TWICE A DAY TAKE UNTIL FINISHED. AVOID SUN EXPOSURE WHILE TAKING. 3) MELOXICAM 15MG TAB TAKE ONE TABLET BY MOUTH ONCE A ACTIVE DAY Pending Outpatient Medications Status 1) FLUCONAZOLE 150MG TAB TAKE ONE TABLET BY MOUTH PENDING ONE-TIME 2) NYSTATIN [id number] UNT/GM CREAM APPLY LIGHTLY TO PENDING AFFECTED AREA(S) THREE TIMES A DAY - TOPICAL USE ONLY. Inactive Outpatient Medications Status 1) ATORVASTATIN CALCIUM 40MG TAB TAKE ONE-HALF TABLET BY MOUTH EVERY EVENING TO LOWER CHOLESTEROL Active Non-VA Medications Status 1) Non-VA NON-FORMULARY TAB ANTIDEPRESSANT BY MOUTH ONCE ACTIVE A DAY 7 Total Medications MEDICATION RECONCILIATION: I have reviewed the patient's medication list with the patient and/or his/her care-radiation therapy technician. Handwritten corrections, additions and/or deletions were made to the list. Corrected Outpatient Medication List was provided to the patient/caregiver. REVIEW OF SYSTEMS: General: Denies fever or chills, and unexplained weight loss Ears, Nose, Mouth, Throat: Denies hearing loss, nasal drainage or sore throat Endo: Denies heat or cold intolerance, polydipsia, polyuria, or polyphagia Cardiovascular: Denies chest pain, palpitations, or dizziness Respiratory: Denies SOB, cough, sputum, and wheezing ABD/GI: Denies abdominal pain, N/V/D, constipation, heartburn, anorexia, dysphagia, hematochezia, melena, or flatulence Musculoskeletal/Extremities : Denies joint swelling/stiffness/pain, back pain, neck pain and edema /BI SPECIALIST: Denies dysuria, flank pain, frequency, hesitancy, urgency, or hematuria Psych: Denies depression, anxiety, insomnia, SI/HI Neuro: Denies weakness, numbness, syncope, dizziness, CONWAY, tremors, neuropathy Skin: Denies rashes, skin lesions PHYSICAL EXAMINATION: VITALS (most recent, as listed in the electronic record): Temperature: 98.5 F [36.9 C] (04/10/2024 11:29) BP: 137/84 (04/10/2024 11:29) Pulse: 76 (04/10/2024 11:29) Resp: 20 (04/10/2024 11:29) PulsOx: 97% (03/23/2024 09:17) Pain: 7 (03/23/2024 09:17) Weight: Measurement DT WEIGHT LB(KG)[BMI] 04/10/2024 11: 223.1(101.20)[31*] 03/23/2024 09:17 218.7(99.20)[31*] 03/23/2024 09:17 218.7(99.20)[31*] General: pleasant, well appearing adult female in no apparent distress HEENT: mucus membranes moist, oropharynx clear, TMs normal, PERRL, EOMI Neck: supple, no lymphadenopathy or thyromegaly, no carotid bruits Heart: regular rate and rhythm; no murmurs, rubs, or gallops Lungs: respirations regular and non-labored; CTA BL; no wheezes, rhonchi, or rales Abdomen: soft, nontender, nondistended, bowel sounds normal Extremities: warm, well-perfused; no clubbing, cyanosis, or edema; 2+ PT pulses BL Skin: no rashes or lesions noted; good turgor Neuro: A&O x 3, gait steady and normal-based, CN II-XI intact Psych: appropriate mood and affect DATA REVIEW: HGA1C 5.3 % 03/10/2023 16:43 Lipid Panel: TRIGLYCERIDE 152 H mg/dL 03/10/2023 16:43 CHOLESTEROL 214 H mg/dL 03/10/2023 16:43 HDL(New) 41 mg/dL 03/10/2023 16:43 CALCULATED LDL 143 mg/dL 03/10/2023 16:43 CMP: SODIUM 136 mEq/L 05/02/2023 17:00 POTASSIUM 3.9 mEq/L 05/02/2023 17:00 CHLORIDE 105 mEq/L 05/02/2023 17:00 UREA NITROGEN 9.2 mg/dL 05/02/2023 17:00 CREATININE 1.16 mg/dL 05/02/2023 17:00 CALCIUM 9.0 mg/dL 05/02/2023 17:00 PROTEIN 7.2 g/dL 05/02/2023 17:00 ALBUMIN 4.3 g/dL 05/02/2023 17:00 ALKALINE PHOSPHATASE 89 U/L 05/02/2023 17:00 ALT/SGPT 19 U/L 05/02/2023 17:00 AST/SGOT 15 U/L 05/02/2023 17:00 TOTAL BILIRUBIN 1.7 H mg/dL 05/02/2023 17:00 CARBON DIOXIDE 21 L mEq/L 05/02/2023 17:00 GLUCOSE 96 mg/dL 05/02/2023 17:00 EGFR (CKD-EPI 2020) 80.2 05/02/2023 17:00 CBC: WBC 20.3 H 10*3/uL 05/02/2023 17:00 RBC 4.64 10*6/uL 05/02/2023 17:00 HGB 14.4 g/dL 05/02/2023 17:00 HCT 42.5 % 05/02/2023 17:00 MCV 91.6 fL 05/02/2023 17:00 MCH 31.0 pg 05/02/2023 17:00 MCHC 33.9 g/dL 05/02/2023 17:00 RDW 12.6 % 05/02/2023 17:00 PLT 259 10*3/uL 05/02/2023 17:00 MPV 9.7 fL 05/02/2023 17:00 NEUTROPHILS 81.7 % 05/02/2023 17:00 BAND NEUTROPHILS 2.6 % 05/02/2023 17:00 LYMPHOCYTES 7.0 % 05/02/2023 17:00 MONOCYTES 4.4 % 05/02/2023 17:00 EOSINOPHILS 2.6 % 05/02/2023 17:00 BASOPHILS 1.7 % 05/02/2023 17:00 PSA: No PSA EO data found Result: Acceptable Follow-up Action: labs ordered___ Data results reviewed with patient and/or caregiver. ASSESSMENT/PLAN: groin rash: This is fungal. May apply Nystatin cream three times daily and take diflucan 150mg x 1 right knee pain: Suspect meniscal tear. Check MRI and refer for PT. ADHD/PTSD: Mental health following. Alerting broadcast traffic coordinator to refill request. Hyperlipidemia: Tolerating statin. Check lipids to assess efficacy. Sleep apnea: PACT team to reach out to sleep medicine for CC consult. HEALTH MAINTENANCE: CRC screen - begin screening at 45 age 45 - 75 for average risk No PSA (LAST 10 5Y) EO data found age 45 - 75 for average risk ADMINISTERED Immunization Series Date Facility Reaction Info COVID-19 (ChatStat), MRNA, LNP-S, * 3 08/16/2021 [facility] COVID-19 (P[facility]), MRNA, LNP-S, * 2 09/15/2020 [facility] COVID-19 (PFIZER), MRNA, LNP-S, * 1 08/22/2020 [facility] COVID-19 (P[facility]ZER), MRNA, LNP-S, * 3 08/16/2021 [facility] HEP B, ADULT 1 02/17/2024 [facility] TDAP 04/15/2014 [facility] * <C> CONTRAINDICATED No data available REFUSED ======= Immunization Date Facility Info COVID-19 (MODERNA), MRNA, LNP-S,* 03/10/2023 [facility] <I> INFLUENZA, UNSPECIFIED FORMULATI* 09/05/2023 [facility] <I> INFLUENZA, UNSPECIFIED FORMULATI* 03/10/2023 [facility] <I> PNEUMOCOCCAL CONJUGATE, UNSPECIF* 03/10/2023 [facility] <I> <C> See the Detailed Immunizations Health Summary Component[DIM] for Comments <I> See the Detailed Immunizations Health Summary Component[DIM] for Additional Information * Value is truncated; see the Detailed Immunizations Health Summary Component[DIM] for complete text Return to clinic 6 months and sooner PRN SUMMARY STATEMENT: Plan of care has been discussed with including expected therapeutic benefits and potential side effects of prescribed medication and treatments. [place] verbalizes understanding and is in agreement with the plan of care. Patient was instructed to keep all scheduled appointments and contact lift operator for any additional problems. Tobacco Use Screening - U,L,N,S,PS,M,DE,PH,P: The patient is a former cigarette smoker. The patient formerly used other types of tobacco. Depression Screening - V: Perform PHQ-2 A PHQ-2 screen was performed. The score was 0 which is a negative screen for depression. Over the past two weeks, how often have you been bothered by the following problems? 1. Little interest or pleasure in doing things Not at all 2. Feeling down, depressed, or hopeless Not at all Suicide Screen - V: C-SSRS Screening [place]-Suicide Severity Rating Scale (C-SSRS Screener) 1. Over the past month, have you wished you were or wished you could go to sleep and not wake up? No 2. Over the past month, have you had any actual thoughts of killing yourself? No 3. Over the past month, have you been thinking about how you might do this? Response not required due to responses to other questions. 4. Over the past month, have you had these thoughts and had some intention of acting on them? Response not required due to responses to other questions. 5. Over the past month, have you started to work out or worked out the details of how to kill yourself? Response not required due to responses to other questions. 6. If yes, at any time in the past month did you intend to carry out this plan? Response not required due to responses to other questions. 7. In your lifetime, have you ever done anything, started to do anything, or prepared to do anything to end your life (for example, collected pills, obtained a gun, gave away valuables, went to the roof but didn't jump)? Yes 8. If YES, was this within the past 3 months? No /jordan/ DG CONNELLY NURSE PRACTITIONER Signed: 04/10/2024 12:42 Receipt Acknowledged By: 04/10/2024 13:20 /jordan/ GEENA FULTON RN BSN Registered Nurse 04/13/2024 10:54 /jordan/ MAUREEN MINOR, RN, BSN Registered Nurse 04/10/2024 ADDENDUM STATUS: COMPLETED talked with the Sleep Dr. Marroquin-He has a consult and needs a test to check tongue movement. so Will call in two weeks to followup. He was a little heart broken. If his tongue does not move the right way. /jordan/ MAUREEN MINOR, RN, BSN Registered Nurse Signed: 04/10/2024 16:06 06/07/2024 ADDENDUM STATUS: COMPLETED Please inform the MRI suggests a prior meniscal and PCL injury. Also has some cartilage thinning. Continue PT for now. If pain does not improve, we will consult ortho. /jordan/ DG CONNELLY NURSE PRACTITIONER Signed: 06/07/2024 09:58 Receipt Acknowledged By: 06/07/2024 11:10 /es/ Casper Pereira Rn, BSN REGISTERED NURSE for MAUREEN MINOR 06/12/2024 ADDENDUM STATUS: COMPLETED CC is requesting sleep study report from [facility] 12/14/23? Please obtain records. /jordan/ KAMILA CONNELLY- NURSE PRACTITIONER Signed: 06/12/2024 08:35 Receipt Acknowledged By: * AWAITING SIGNATURE * MAUREEN MINOR LAUREN C [facility]
--- OUTSIDE RECORDS SUMMARY | 2024-08-20 08:18 | XMS_ITS | Clinical Summary ---
Author Organization [facility] Address [address] [place] [address] Care Team Providers Care Vehicle Upholsterer Name Role Phone Hipolito Yi MD Primary Care Provider [phone] Allergies No known active allergies Medications atorvastatin 10 MG tablet Take 10 mg by mouth daily. 04/23/2020 Active buPROPion XL 150 MG 24 hr tablet 12/26/2020 Act mason pantoprazole EC 20 MG tablet Take 20 mg by mouth daily. Active Family History Medical History Relation Comments No Known Problems Mother Relation Status Comments Mother Social History Tobacco Use Types Packs/Day Years Used Date Smoking Tobacco: Every Day Cigarettes Smokeless Tobacco: Never Alcohol Use Standard Drinks/Week Comments Yes 0 (1 standard drink = 0.6 oz pur e alcohol) socially Sex and Gender Information Value Date Recorded Sex Assigned at Not on file Legal Sex Male 7:38 PM CDT Gender Identity Not on file Sexual Orientation Not on file Last Filed Vital Signs Vital Sign Reading Time Taken Comments Blood Pressure 132/90 02/24/2021 12:59 PM CDT Pulse 81 02/24/2021 12:59 PM CDT Temperature 36.4 C (97.5 F) 02/24/2021 12:59 PM CDT Respiratory Rate 20 02/24/2021 12:59 PM CDT Oxygen Saturation 97% 02/24/2021 12:59 PM CDT Inhaled Oxygen Concentration - - Weight 107.5 kg (237 lb) 02/24/2021 12:59 PM CDT Height 180.3 cm (5' 11 ) 02/24/2021 12:59 PM CDT Body Mass Index 33.05 02/24/2021 12:59 PM CDT Plan of Treatment Health Maintenance Due Date Last Done Comments Annual Physical 1983 Pneumococcal Vaccine: Pediatrics (0 to 5 Years) and At-Risk Patients (6 to 64 Years) (1 of 2 - PCV) 1986 Hepatitis C 1998 DTaP, Tdap and Td Vaccines ( 1 - Tdap) 1999 Hepatitis B Vaccines (1 of 3 - 19+ 3-dose series) 1999 COVID-19 Vaccine (3 - 2023-2 5 season) 2024 09/15/2020, 08/22/2020 HPV Vaccines Aged Out No longer eligi ble based on patient's age to complete this topic Meningococcal B Vaccine Aged Out No l onger eligible based on patient's age to complete this topic Meningococcal Vaccine Aged Out No norman kristen eligible based on patient's age to complete this topic RSV Immunizations Under 20 Months Aged Out No longer eligible b ased on patient's age to complete this topic Insurance [facility] Care Teams Vehicle Upholsterer Relationship Specialty Start Date End Date Hipolito Yi MD PCP - General FAMILY PRACTICE 02/24/21
--- OUTSIDE RECORDS SUMMARY | 2024-08-20 08:18 | XMS_ITS | Clinical Summary ---
Author Organization [facility] Address [address] [place] [address] Care Team Providers Care Peoplesoft Administrator Name Role Phone Rosalina William MD Primary Care Provider Allergies No known active allergies Medications atorvastatin (LIPITOR) 10 mg tablet Take 1 tablet (10 mg total) by mouth daily 8 Active buPROPion XL (WELLBUTRIN XL) 150 mg 24 hr tablet Take 2 tablets (300 mg total) by mouth every morning 1 Active tjftamiu-fyh-VU -lycopen-lutein (Centrum Silver) 0.4 mg-300 mcg- 250 mcg tabletIndicatio ns:Vitamin Deficiency Prevention Take 1 tablet by mouth daily Active dextroamphetami ne-amphetamine (ADDERALL) 10 mg tablet Take 1 tablet (10 mg total) by mouth daily Takes 1 prn. Active tadalafiL (CIALIS) 5 mg tablet Take 1 tablet (5 mg total) by mouth daily as needed for erectile dysfunction Active Active Problems Problem Noted Date Diagnosed Date Recurrent major depression 03/02/2023 Assessment & Plan (03/02/2023 4:36 PM CDT): Chronic. Stable. Continue medication and care per Psychiatry Posttraumatic stress disorder 03/02/2023 Assessment & Plan (03/02/2023 4:36 PM CDT): Chronic. Stable. [place] medication [place] Generalized anxiety disorder 03/02/2023 Assessment & Plan (03/02/2023 4:36 PM CDT): Chronic. Stable. Continue medication and care per Psychiatry [place] Mixed hyperlipidemia 03/02/2023 Obesity 03/02/2023 Assessment & Plan (03/02/2023 4:36 PM CDT): Chronic. Has been improving. His weight is down about 40+ lb compared to a year or 2 ago. Encouraged to keep up the good work. Attention-deficit hyperactiv ity disorder, predominantly inattentive type 03/02/2023 Assessment & Plan (03/02/2023 4:36 PM CDT): Chronic. Managed by physician at the [place]. Stable on medication. Defer refills on controlled substance to his psychiatrist Obstructive sleep apnea syndrome 03/02/2023 Assessment & Plan (03/02/2023 4:37 PM CDT): No longer on CPAP. Stopped when had recall and has since lost weight. Denies symptoms of uncontrolled sleep apnea so may have resolved. Can always consider doing updated sleep study to see if he still has a degree of mild TEVIN but defers today Resolved Problems Problem Noted Date Diagnosed Date Resolved Date Nondependent alcohol abuse, in remission 03/02/2023 03/02/2023 Immunizations Immunization Administration Dates Next Due Influenza, Unspecified 01/21/2015,04/15/2014, Pfizer SARS-CoV-2 Monovalent Vaccination (12+ Yrs) PURPLE 08/16/2021 Td, Unspecified 05/23/1999 Td, adsorbed 08/21/2013 Tdap 04/15/2014 Surgical History Surgery Date Site/Laterality Comments SEPTOPLASTY 05/23/2016 - 05/22/2017 VASECTOMY 05/23/2021 - 05/22/2022 LITHOTRIPSY 05/23/1991 - 05/22/1992 Medical History Medical History Date Comments ADHD (attention deficit hyperactivity disorder) Depression PTSD (post-traumatic stress disorder) Apnea spell Sleep difficulties Family History Medical History Relation Name Comments Diabetes Maternal Grandfather Fuchs' dystrophy Maternal Grandmother Sjogren's syndrome Maternal Grandmother Fuchs' dystrophy Mother Colon cancer Neg Hx Prostate cancer Neg Hx Relation Name Status Comments Maternal Grandfather Maternal Grandmother Mother Social History Tobacco Use Types Packs/Day Years Used Date Smoking Tobacco: Former Smokeless Tobacco: Never Tobacco Cessation:Counseling Given: Not Answered PHQ-2 Answer Date Recorded PHQ-2 Total Score (If total score is 3 or more points, staff should administer the PHQ-9) 2 03/02/2023 Personal Safety Answer Date Recorded Getting School Help Needed Not on file 05/05 Sex and Gender Information Value Date Recorded Sex Assigned at Not on file Legal Sex Male 1:58 PM CDT Gender Identity Not on file Sexual Orientation Not on file Obstetrics History Last Filed Vital Signs Vital Sign Reading Time Taken Comments Blood Pressure 120/66 03/02/2023 2:22 PM CDT Pulse 89 03/02/2023 2:22 PM CDT Temperature - - Respiratory Rate - - Oxygen Saturation 95% 06/14/2016 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 PM 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 Inhaled Oxygen Concentration - - Weight 97.5 kg (215 lb) 03/02/2023 2:22 PM CDT Height 179.1 cm (5' 10.5 ) 03/02/2023 2:22 PM CD T Body Mass Index 30.41 03/02/2023 2:22 PM CDT Plan of Treatment Health Maintenance Due Date Last Done Comments Hepatitis C Screening 1980 Varicella Vaccines (1 of 2 - 13+ 2-dose series) 1993 Hepatitis B Screening 1998 Covid-19 Vaccine ( season) 2024 08/16/2021, 08/16/2021, 09/15/2020, Additional history exists Influenza Vaccine (#1) 2024 5, 04/15/2014, 05/22/2007 Depression Screening 03/02/2024 03/02/2023 Regular Well Visit/Exam 18-64 03/02/2024 03/02/2023 DTaP/Tdap/Td Vaccine (2 - Td or Tdap) 04/15/2024 04/15/2014, 08/21/2013, 05/23/1999 HPV Vaccines Aged Out No longer eligi ble based on patient's age to complete this topic Pneumococcal vaccine <65 Aged Out No longer eligible based on patient's age to complete this topic Insurance Member Subscriber Plan / Payer (Ef fective 2004-Present) Name:Swati Mujica R Relation to Subscriber:Self Name:Swati Mujica Payer ID:[id number] Type:OTHER GOVERNMENT Address: [place] [id number] [facility] Care Teams Peoplesoft Administrator Relationship Specialty Start Date End Date Rosalina William MD PCP - General Family Medicine 03/02/23
--- OUTSIDE RECORDS SUMMARY | 2024-08-20 08:18 | XMS_ITS | Referral Summary ---
Author Organization [facility] Address [address] [place] [address] Care Team Providers Care Quick Technician Name Role Phone Rosalina William MD Primary Care Provider Allergies No known active allergies Medications atorvastatin (LIPITOR) 10 mg tablet Take 1 tablet (10 mg total) by mouth daily 8 Active buPROPion XL (WELLBUTRIN XL) 150 mg 24 hr tablet Take 2 tablets (300 mg total) by mouth every morning 1 Active fuspcloc-rby-RL -lycopen-lutein (Centrum Silver) 0.4 mg-300 mcg- 250 [...] medication and care per Psychiatry at [place] Generalized anxiety disorder 03/02/2023 Assessment & Plan (03/02/2023 4:36 PM CDT): Chronic. Stable. Continue medication and care per Psychiatry at the [place] Mixed hyperlipidemia 03/02/2023 Obesity 03/02/2023 Assessment & Plan (03/02/2023 4:36 PM CDT): Chronic. Has been improving. His weight is down about 40+ lb compared to a year or 2 ago. Encouraged to keep up the good work. Attention-deficit hyperactiv ity disorder, predominantly inattentive type 03/02/2023 Assessment & Plan (03/02/2023 4:36 PM CDT): Chronic. Managed by physician at the [place]. Stable on medication. 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
--- OUTSIDE RECORDS SUMMARY | 2024-08-20 08:18 | XMS_ITS ---
Author Organization [facility] Address [address] [place] [address] Care Team Providers Care Manager Renewable Energy Name Role Phone NISREEN GODOYA Primary Care Provider Allergies Allergen (clinical drug ingredient) Drug/Non Drug Allergy documented on EMR Reaction Allergy Type Onset Date Status No Known Drug Allergy Unknown Drug Allergy Active No Known Food Allergy Unknown Drug Allergy Active Results Component Value Reference Range Notes BinaxNOW COVID-19 Ag Reviewed date:12/22/2023 03:27:48 PM Interpretation:Positive Performing Lab: Notes/Report: Positive SARS-CoV-2 nucleocapsid antigens Positive REASON FOR VISIT requesting covid test Medications Medication SIG (Take, Route, Frequency, Duration) [...] Problem Body mass index 30+ - obesity ([id number]) Body mass index (BMI) of 30.0-30.9 in adult (Z68.30) Active confirmed Vital Signs Blood pressure systolic 120 mm Hg 12/22/19 24 Blood pressure diastolic 82 mm Hg 024 Temperature 99.4 degrees Fahrenheit 12/22/19 24 Heart Rate 91 /min 12/22/2023 Respiratory Rate 18 /min 12/22/2023 Oximetry 99 % 12/22/2023 Height 71 in 12/22/2023 Weight 218.0 lbs 12/22/2023 BMI 30.4 kg/m2 12/22/2023 Height-cm 180.34 cm 12/22/2023 Weight-kg 98.88 kg 12/22/2023 Procedures Procedure Date Ordered Date Performed [...] N/A Encounters Encounter Location Date Provider Diagnosis [facility] [address] [address] 12/22/2023 PILO GODOY Cough R05 ; Acute [...] adult (ICD-10 - Z68.30) Plan Of Treatment Medication Medication Name Sig Start Date Stop Date Notes Paxlovid (150/100) 10 x 150 MG & 10 x 100MG as directed Orally daily for 5 days 12/22/2023 Treatment Notes Assessment Notes Acute COVID-19 discussed GI SE like diarrhea. Pt in understanding. Stated not sure if he'll get since he doesn't have insurance. Pending Test Test Name Order Date TOBACCO [...] 12/22/2023 Medication Review 12/22/2023 Allergies Reviewed 12/22/2023 Next Appt Details Follow Up: prn, Reason: Progress Notes * Swati MUJICADOB:1980 (43 yo M)Acc No.[id number]:12/22/2023 Patient: Swati CARVALHO Provider: KATE GOLD :1980 A ge:43 Y S ex:Male Date:12/22/2023 Address:[address] [place], [place] [id number] Structured Data: : Ye s; Migrant : No Subjective: * Chief Complaints: * R equesting covid test * HPI: C onstitutional: 43 yo male in through acute visit requesting COVID testing after exposure to COVID. D epression Screening: PHQ-2 (2015 Edition) L ittle interest or pleasure in doing things??Not at all F eeling down, depressed, or hopeless? N ot at all T otal Score 0 * ROS: G eneral ROS: General/Constitutional: ADMITS:, b yani aches, tiredness. R espiratory: D ENIES:, s hortness of breath. C ardiovascular: D ENIES:,?Chest pain. G astrointestinal: D ENIES:, A bdominal pain. * Medical History: * Surgical History: n ose 05/2016 * Hospitalization/Major Diagno stic Procedure: D enies Past Hospitalization * Family History: F ather: unknown. M other: alive. C hildren: alive. 3 daughter(s) - healthy. .?Non-Contributory. * Social History: T obacco Use: T obacco Control (Standard) T obacco use: N onsmoker C affeine/Drugs/Alcohol/COW: C affeine I ntake: n one Drugs H ave you used drugs other than those for medical reasons in the past? N o Do you smoke marijuana?: Denies. Do you drink alcohol?: No. * Medications: T akingAdderall(Amphetamine-Dextroamphetamine) 10 MG Tablet 1 tablet Orally Twice a day Wellbutrin SR(buPROPion HCl ER (SR)) 200 MG Tablet Extended Release 12 Hour 1 tablet in the morning Orally Once a day , Notes to Pharmacist: 300 mgAtorvastatin Calcium 20 MG Tablet 1 tablet Orally Once a day Medication List reviewed and reconciled with the patientTaking Adderall(Amphetamine-Dextroamphetamine) 10 MG Tablet 1 tablet Orally Twice a day Taking Wellbutrin SR(buPROPion HCl ER (SR)) 200 MG Tablet Extended Release 12 Hour 1 tablet in the morning Orally Once a day , Notes to Pharmacist: 300 mgTaking Atorvastatin Calcium 20 MG Tablet 1 tablet Orally Once a day Medication List reviewed and reconciled with the patient * Allergies: N o Known Drug AllergyNo Known Food Allergyno[Allergies Verified] Objective: * Vitals: B P:120/82mm Hg, Temp:99.4F, HR:91/min, RR:18/min, Oxygen sat %:99%, Pain scale:01-10, Ht: 71 in, Wt:218.0lbs, BMI:30.4Index, Ht-cm: 180.34 cm, Wt-k.88 kg. * Examination: G eneral Examination: GENERAL APPEARANCE: P leasant, well nourished, well developed, alert and oriented x 3, in no acute distress. HEAD: N ormocephalic, atraumatic. EYES: E ye movements intact. No scleral icterus. THROAT: c lear, no erythema, no exudate, uvula midline.? HEART: Normal rate, regular rhythm. S1, S2 with no murmurs, rubs, or gallops. LUNGS: N ormal rate, rhythm, depth, and effort of breathing. C lear to auscultation bilaterally, with no wheezes, rhonchi, crackles, or rales noted. MUSCULOSKELETAL: n ormal, full range of motion. PERIPHERAL PULSES: 2 + radial. NEUROLOGIC: Alert and oriented to person, place, and time. Moves all extremities. PSYCH: N ormal mood and appropriate affect. Assessment: * Assessment: 1. A alice COVID-19 - U07.1 (Primary) 2 . C aquilino - R05 3 .?Encounter for screening - Z13.9 4 . B yani mass index (BMI) of 30.0-30.9 in adult - Z68.30 Plan: * Treatment: 2. C aquilino L AB: DerianaxNOValente COVID-19 Ag (Collection Date & Time - 12/22/2023) P ositive Value Reference Range S ARS-CoV-2 nucleocapsid antigens Positive 3.?Encounter for screening?Procedure: TOBACCO USE ASSESSED ?Procedure: TOBACCO NON-USER ?Procedure: SYST BP < 130 MM HG ?Procedure: DIAST BP < 80 MM HG ?Procedure: DEPRESSION SCREEN ANNUAL ?Procedure: ALCOHOL/SUBS INTERV 15-30 MIN ?Procedure: Pain severity Quantified- No pain present ?Procedure: Screening for depression documented as negative, so f/u is not required ?Procedure: Medication Review ?Procedure: Allergies Reviewed4.?Body mass index (BMI) of 30.0-30.9 in adult ?Procedure: BMI above normal parameters and f/u plan documented * Procedure Codes: 8 7811 SARS-COV-2 COVID19 W/OPTIC, Modifiers: QW 1126F AMNT PAIN NOTED- NONE [id number] DIAST BP < 80 MM [id number] SYST BP LT 130 MM [id number] RVW MEDS BY RX/DR IN [id number] MED LIST DOCD IN [id number] TOBACCO [id number] DEPRESSION SCREEN ANNUAL [id number] AUDIT/DAST, 15-30 [id number] TOBACCO USE, SMOKING, [id number] NEG SCR D PT NOT ELIG F/U/PLN [id number] BMI above normal parameters and f/u plan documented * Preventive Medicine: MALE PREVENTIVE WELLNESS PLAN: B W[place], Height, and Weight: My BMI, height, and weight were taken on: 0 12/22/2023 B lood Pressure: My blood pressure was last taken on:?12/22/2023 D epression Screening: Screening for depression was last done on: 0 12/22/2023 A lcohol Misuse Screening: Screening for alcohol misuse was last done on: 0 12/22/2023 * Follow Up: p rn * Billing Information: * Visit Code: 90837 Office/outpatient visit new. * Procedure Codes: 11324 SARS-COV-2 COVID19 W/OPTIC. Modifiers: QW 1126F AMNT PAIN NOTED- NONE PRESENT. 3078F DIAST BP < 80 MM HG. 3074F SYST BP LT 130 MM HG. 1160F RVW MEDS BY RX/DR IN [facility]. 1159F MED LIST DOCD IN [facility]. 1036F TOBACCO NON-USER. 36651 DEPRESSION SCREEN ANNUAL (46604). 80445 AUDIT/DAST, 15-30 MIN. 1000F TOBACCO USE, SMOKING, ASSESS. G8510 NEG SCR D PT NOT ELIG F/U/PLN DOC. G8417 BMI above normal parameters and f/u plan documented. * Sign off status: Completed true * Provider: KATE OGLD Date: 12/22/2023 Generated for Royal viavs/Hugh/Alexandro on: 08/20/2024 09:18 AM EDT History and Physical Notes * HPI (History of Present Illness) Category Sub-Category Detail Notes Category Not es Constitutional 43 yo male in through acute visit requesting COVID testing after exposure to COVID. Depression Screening PHQ-2 (2015 Edition) Little interest or pleasure in doing things?: Not at all Feeling down, depressed, or hopeless?: N ot at all Total Score: 0 Examination Category Sub-Category Detail Notes Category Not es General Examination GENERAL APPEARANCE: Pleasant , well nourished, well developed, alert and oriented x 3, in no acute distress HEAD: Normocephalic, atrau matic EYES: Eye movements intact . No scleral icterus THROAT: clear, no erythema, no exudate, uvula midline HEART: Normal rate, regular rhythm. S1, S2 with no murmurs, rubs, or gallops LUNGS: Normal rate, rhythm, depth, and effort of breathing. Clear to auscultation bilaterally, with no wheezes, rhonchi, crackles, or rales noted NEUROLOGIC: Alert and oriented t o person, place, and time. Moves all extremities PERIPHERAL PULSES: 2+ radial MUSCULOSKELETAL: normal, full range o f motion PSYCH: Normal mood and appr opriate affect
--- OUTSIDE RECORDS SUMMARY | 2024-08-20 08:18 | XMS_ITS | Encounter Summary ---
Author Name [facility] Organization [facility] Address [address] [facility] [place] [address] Care Team Providers Care Stuffing Machine Operator Name Role Phone GEENA DELACRUZ [...] AID (WNR) Jun 23, 2020 MEDICAI D [id number] 26 Franchesca MORENO PATIENT Selected Encounter This section includes the information on record at [place] for the Encounter. Date/Time Encounter Type Encounter Description Reason Pro vider Source IHE Encounter Template Text not used by [place] Advance Directives: All historical and current Section Date Range: From patient's date of to the date document was created. This section includes ALL of a patient's completed or amended [place] Advance and Rescinded Directives. The entries below indicate that a directive exists for the patient, but an actual copy is not included with this document. The data comes from all [place] facilities. Date Advance Directives Provider Source May 23, 2007 ADVANCE DIRECTIVE DISCUSSION SAI CISSE [facility]
--- OUTSIDE RECORDS SUMMARY | 2024-08-20 08:18 | XMS_ITS | Encounter Summary ---
Author Name [facility] [place] Organization [place] Address [address] [place] [address] Care Team Providers Care Flight Operations Specialist Name Role Phone GEENA DELACRUZ Primary Care [...] AID (WNR) Jun 23, 2020 MEDICAI D [id number] Franchesca MORENO PATIENT Selected Encounter This section includes the information on record at CT for the Encounter. Date/Time Encounter Type Encounter Description Reason Provider Source Mar 23, 2024 09:40 AM OFFICE O/P EST LOW 20 MIN PRIMARY CARE/MEDICINE ICD-10-CM M25.561 Pain in right knee NHI MONTILLA Encounter Template Text not used by CT Assessments - Encounter Diagnoses This section includes the primary and secondary diagnoses documented for the Encounter. Date/Time Primary/Secondary Diagnosis Diagnosis Name Provider Source Mar 26, 2024 10:56 AM PRIMARY Pain in right knee NHI MONTILLA [facility] Plan of Treatment: Future Appointments (+ 6 months) and Future Tests (+/- 45 days) The Plan of Treatment section includes [facility] care activities [facility] This section includes future appointments and future orders which are active, pending or scheduled. Future Appointments This section includes appointments that were scheduled to occur 6 months from the date of the Encounter, up to a maximum of 20 appointments. The data comes from all [facility]. Appointment Date/Time Appointment Type Appointme nt Facility Name Apr 10, 2024 11:00 AM AMBULATORY - MEDICINE [facility] Apr 24, 2024 03:00 PM AMBULATORY - MEDICINE [facility] Apr 25, 2024 01:30 PM AMBULATORY - PSYCHIATRY [facility] May 10, 2024 09:00 AM AMBULATORY - MEDICINE [facility] May 21, 2024 10:00 AM AMBULATORY - MEDICINE [facility] May 29, 2024 10:00 AM AMBULATORY - MEDICINE [facility] May 31, 2024 10:00 AM AMBULATORY - NONE [facility] Jun 06, 2024 01:00 PM AMBULATORY - REHAB [facility]ICIN [facility] Jun 29, 2024 09:30 AM AMBULATORY - REHAB MEDICIN E [facility] Jul 07, 2024 09:15 PM AMBULATORY - MEDICINE [facility] Active, Pending, and Scheduled Orders This section includes a listing of several types of active, pending, and scheduled orders, including clinic medications orders, diagnostic test orders, procedure orders and consult orders; where the start date of the order is 45 days before the date of the Encounter or 45 days after the date of theEncounter. The data comes from all [facility]. Test Date/Time Test Type Test Details Facility Name Apr 10, 2024 12:00 AM Laboratory - Chemistry Order [id number] BLOOD SP [facility] Apr 10, 2024 12:00 AM Laboratory - Chemistry Order COMPREHENSIVE METABOLIC PANEL GREEN LI/HEP BLD/PLAS PLASMA SP [facility] Apr 10, 2024 12:00 AM Laboratory - Chemistry Order VITAMIN D, 25-HYDROXY GOLD/RED SST SERUM SP [facility] Apr 10, 2024 12:00 AM Laboratory - Chemistry Order CBC BLOOD SP [facility] Apr 10, 2024 12:00 AM Laboratory - Chemistry Order TSH (MA-PB) GOLD/RED SST SERUM SP [facility] Apr 10, 2024 12:00 AM Laboratory - Chemistry Order LIPID PANEL (STL) GREEN LI/HEP BLD/PLAS PLASMA SP [facility] Apr 10, 2024 12:00 AM Laboratory - Chemistry Order URINE DRUG SCREEN (STL) URINE YELLOW SP [facility] Lab Results: +/- 30 days of the encounter This section includes the Chemistry and Hematology Lab Results on record with CT for the patient. Radiology Reports and Pathology Reports are provided separately, in subsequent sections. Lab Results This section contains the Chemistry/Hematology Results that were resulted 30 days before or 30 daysafter the date of the Encounter. Date/Time Source Result Type Result - Unit Interpretation Reference Range Comment Mar 23, 2024 10:49 AM [facility] GC & CHLAMYDIA PCR (STL-PB) Specimen Type: [...] Mar 23, 2024 10:34 AM Reporting Lab: [facility] [address] [address] Performing Lab: [place] [id number] [facility] [address] N.GONORRHOEA E PCR (STL) Not Detected Not Detected C.TRACHOMATI S PCR (STL) Not Detected Not Detected Mar 23, 2024 10:49 AM [facility] TRICHOMONAS PCR (STL-PB) Specimen Type: URINE Comment: [...] Mar 23, 2024 10:34 AM Reporting Lab: [facility] [address] [facility] [address] Performing Lab: [address] [address] TRICHOMONAS PCR (STL-PB) Not Detected Not Detected Mar 23, 2024 10:43 AM [facility] RAPID PLASMA REAGIN (RPR) Specimen Type: SERUM No comment entered. Ordering Provider: NHI MONTILLA Report Released Date/Time: Mar 23, 2024 10:34 AM Reporting Lab: [facility] [address] [address] Performing Lab: [facility] [address] [facility] [address] RAPID PLASMA REAGIN (RPR) NONREACTIVE NONREACTIVE Mar 23, 2024 10:43 AM [facility] HIV COMBO FOURTH GENERATION (STL) Specimen Type: SERUM No comment entered. Ordering Provider: NHI MONTILLA Report Released Date/Time: Mar 23, 2024 10:34 AM Reporting Lab: [facility] [address] [address] Performing Lab: [facility] [address] [facility] [address] HIV COMBO FOURTH GENERATION (STL) Nonreactive Nonreactive Mar 23, 2024 10:43 AM [facility] HEP C Ab HCV Ab (STL) Specimen Type: SERUM No comment entered. Ordering Provider: NHI MONTILLA Report Released Date/Time: Mar 23, 2024 10:34 AM Reporting Lab: [facility] [address] [facility] [address] Performing Lab: [facility] [address] [facility] [address] HEP C Ab HCV Ab (STL) Nonreactive Nonreactive Vital Signs: All taken on the encounter date This section contains inpatient and outpatient Vital Signs collected on the date of the Encounter. Date/Time Temperature Pulse Blood Pressure Respiratory Rate SP02 Pain Height Weight Body Mass Index Source Mar 23, 2024 09:17 AM 97.6 89 106/71 18 97 7 218.7 31 [facility] Mar 23, 2024 09:17 AM 97.6 89 106/71 18 98 7 218.7 31 [facility] Social History: Smoking Status (Most current) and Tobacco Use (All prior to encounter date) This section includes the most current, and the historical, smoking and tobacco- related health factors from the CT facility where the Encounter took place. Current Smoking Status This section includes the most current smoking, or tobacco-related health factor, from the CT facility where the Encounter took place. Date/Time Current Smoking Status Comment Facil ity 2023 03:[address]-TOBACCO QUIT 1 TO < 5 YRS [facility] Tobacco Use History This section includes a history of the smoking, or tobacco-related health factors, that were collected on or before the date of the Encounter. The data comes from the CT facility where the Encounter took place. Date/Time Smoking Status/Tobacco Use Comment F acility 2023 03:56 PM VA-TOBACCO QUIT 1 TO < 5 YRS [facility] Feb 07, 2019 09:34 AM VA-TOBACCO FORMER USER [facility] Feb 07, 2019 09:34 AM VA-TOBACCO QUIT 5 TO < 15 YRS [facility] Advance Directives: All historical and current Section Date Range: From patient's date of to the date document was created. This section includes ALL of a patient's completed or amended CT Advance and Rescinded Directives. The entries below indicate that a directive exists for the patient, but an actual copy is not included with this document. The data comes from all CT facilities. Date Advance Directives Provider Source May 23, 2007 ADVANCE DIRECTIVE DISCUSSION [facility] Radiology Reports: +/- 30 days of [...] the Encounter. The data comes from all CT treatment facilities. Date/Time Radiology Report Provider Source Mar 23, 2024 10:50 AM KNEE,RIGHT 3 VIEWS : TAVON MORENO [phone] -[id number] M Exm Date: MAR 23, 2024@10:50 Req Phys: NHI MONTILLA Pat Loc: [facility] DAY [facility] (Re Img Loc: -MAIN RADIOLOGY SUITE Service: [facility], [facility] [address] [place] [address] (Case [id number] COMPLETE) KNEE,RIGHT 3 VIEWS (RAD Detailed) CPT:01926 Proc Modifiers : RIGHT, LATERAL, Stand AP, [place] Reason for Study: right knee pain Clinical History: Report Status: Verified Date Reported: MAR 23, 2024 Date Verified: MAR 23, 2024 Asian Studies Program Chair E-Sig:/ES/SUSY HERNANDEZ MD Report: Case #[id number]. Right knee [...] SUSY HERNANDEZ MD, Staff Physician - Radiologist (Asian Studies Program Chair) /SUSY HARVEY [facility] Encounter Notes: All associated encounter notes This section contains the clinical notes associated to the Encounter. Date/Time Encounter Note(s) Provider Source Mar 26, 2024 02:52 PM PHYSICIAN LETTERS: LOCAL TITLE: TEST RESULT GENERAL LETTER STL STANDARD TITLE: PHYSICIAN LETTERS DATE OF NOTE: MAR 26, 2024@14:52 ENTRY DATE: MAR 26, 2024@14:52:27 AUTHOR: NHI MONTILLA EXP COSIGNER: URGENCY: STATUS: COMPLETED [facility] [address] [place] [address] March 26 2024 TAVON MORENO [address] [place] [id number] Dear Olanta, I would like to update you on your recent test results. STI PANEL: Lab Name Result Units RefLow RefHigh Date C.TRACHOMATIS PCR (STL) NEG NEG 2024-03-23 N.GONORRHOEAE PCR (STL) NEG NEG 2024-03-23 RAPID PLASMA REAGIN (RPR) NEG NEG 2024-03-23 TRICHOMONAS PCR (STL-PB) NEG NEG 2024-03-23 HIV COMBO FOURTH GENERATION NEG S/CO NEG 2024-03-23 HEP C Ab HCV Ab (STL) NEG S/CO NEG 2024-03-23 RADIOLOGY: Study: KNEE,RIGHT 3 VIEWS Date: 2024-03-23 10:50:00 REPORT: Case #[id number]. Right knee examination. Finding: AP and lateral views of the right knee examination followed by sunrise view of the patella shows no fracture dislocation. No evidence of lytic or blastic bony lesion. No joint space narrowing or suprapatellar effusion. No radiopaque foreign body or abnormal calcification. IMPRESSION: Normal study. Please let us know if you have any additional questions or concerns. Sincerely, NIH MONTILLA MD PhD STAFF PHYSICIAN TAVON MORENO ROGER B [facility] Mar 23, 2024 10:39 AM PRIMARY CARE NOTE: LOCAL TITLE: PRIMARY CARE PROVIDER ESTABLISHED VISIT STL STANDARD TITLE: PRIMARY CARE NOTE DATE OF NOTE: MAR 23, 2024@10:39 ENTRY DATE: MAR 23, 2024@10:40:14 AUTHOR: CLIFFORD MONTILLA COSIGNER: NHI MONTILLA URGENCY: STATUS: COMPLETED PRIMARY CARE PROVIDER ESTABLISHED VISIT STL Has ADDENDA THIS IS A STUDENT NOTE, NOT FOR OFFICIAL USE Same Day Clinic Note CC: Right knee and groin pain HPI: 44 year old male presents to same day clinic with one week of right knee pain and 2 days of worsening right groin pain. States he first noticed his right knee pain in early February when he was completing a 10 mile hike and decided to rest to enjoy the view. Reports while he was sitting there, his right knee locked and he had to move it around until it popped which resolved the pain. Most recent episode started one week ago. Patient reports he woke up and his knee was locked again. Rates his pain as 4/10. Pain is exacerbated by prolonged periods of immobility and typically worse in the morning. Has been wearing knee brace with improvement but denies using any pain relief medicine. Denies swelling, redness, radiation, or any known history of injury. Further complains of worsening right groin pain that started 2 days ago. Reports skin is very sensitive to touch in that area and he has to put his hand in his pants to keep his clothing from rubbing against/irritating it. Rates pain 7/10. States he has a new sexual partner with whom he has not been using protection. Pain improved with icepack. Has also tried epsom salt bath, peroxide, and baking soda with water with no improvement. Reports that he trims the area but does not shave. Last trimmed 2 days ago. States this has never happened before in the past. Denies penile discharge, urinary changes, or any known history of STI/STDs. ROS: Consitutional: Reports chills. Denies fever, fatigue, weight changes HEENT: Denies vision changes, nasal drainage, nasal congestion CV: Denies chest pain, palpitations, swelling Respiratory:Denies cough, wheezing, SOB GI: Denies nausea, vomiting, diarrhea : Denies urinary changes MSK: Reports right knee pain. Denies swelling Integumentary: Reports skin changes in right groin area Psychiatric: Denies mood changes Neurologic: Denies headache Outpatient Medications: Active Outpatient Medications (including Supplies): Active Outpatient Medications Status 1) BUPROPION HCL 150MG 24HR SA TAB TAKE TWO TABLETS BY ACTIVE MOUTH ONCE A DAY SWALLOW WHOLE - DO NOT CRUSH OR CHEW. Pending Outpatient Medications Status 1) DOXYCYCLINE MONOHYDRATE 100MG CAP TAKE ONE CAPSULE BY PENDING MOUTH TWICE A DAY TAKE UNTIL FINISHED. AVOID SUN EXPOSURE WHILE TAKING. 2) MELOXICAM 15MG TAB TAKE ONE TABLET BY MOUTH ONCE A PENDING DAY Active Non-VA Medications Status 1) Non-VA NON-FORMULARY TAB ANTIDEPRESSANT BY MOUTH ONCE ACTIVE A DAY 4 Total Medications Allergies/Adverse Drug Reactions: NKDA Vital Signs: Temp: 97.6 Pulse: 89 BP: 106/71 RESP: 18 Pulse Oximetry:98% Weight: 218.7 lbs PHYSICAL EXAM: General: Sitting in chair with right hand in pants, no acute distress, awake, alert, cooperative HEENT: normocephalic, atraumatic, moist mucous membranes Heart: regular rate and rhythm, no murmur Lungs: no respiratory distress, breath sounds equal bilaterally, clear Extremities: tenderess to palpation on right lateral knee, full ROM, no LE edema, warm hands and feet Skin: hard 5-6cm lump in right groin area with erythematous center, warm to touch Psych: normal mood and affect Labs & imaging: reviewed Assessment/Plan: 44 year old male presenting to same day clinic with one week of acute right knee pain and 2 days of worsening right groin pain. Patient agreeable to imaging and STI/STD labs. #Right knee pain - isolated aching, popping right knee pain - worse in the morning or with immobility for long periods of time - first noticed pain shortly after sitting down following a 10 mile hike in early February. Pain resolved after popping knee. Most recent episode started 1 week ago - affecting ability to exercise - improved with stretching, movement, and knee brace - has not attempted any pain relieving medications - Mostly likely etiology osteoarthritis. Due to self-resolving nature, less likely injury - Obtain x-ray imaging of right knee - Start ibuprofen 400MG Q6H PRN #Right groin pain - worsening right groin pain over the past 2 days associated with erythematous 5-6cm lump - warm to touch, no drainage - no penile discharge or urinary changes - new sex partner, does not use protection - uses trimmers in area, but does not shave. Last trimmed 2 days ago. - pain improved with icepack - physical exam most concerning for cellulitis. Other etiologies of consideration include ingrown hair or STI/STD - Lab work up for gonorrhea, chlamydia, trichomonas, syphilis and HIV - Start doxycycline 100MG BID - Follow up in 10 days if symptoms do not improve Clifford Montilla MS4 /jrodan/ CLIFFORD MONTILLA Medical Student Signed: 03/23/2024 11:22 /jordan/ NHI MONTILLA MD PhD STAFF PHYSICIAN Cosigned: 03/26/2024 10:56 03/26/2024 ADDENDUM STATUS: COMPLETED The was seen, examined, and discussed at length with the medical student. Relevant labs, imaging studies, and past medical records were reviewed. Will treat the 's knee pain as OA. The appears to have a cellulitis in his suprapubic area. Will treat wtih doxycycline 100 mg BID and will also rule out STI as a possible cause. /jordan/ NHI MONTILLA MD PhD STAFF PHYSICIAN Signed: 03/26/2024 10:57 CLIFFORD MONTILLA [facility] Mar 23, 2024 09:38 AM NURSING NOTE: LOCAL TITLE: V15 PACT FACE TO FACE NOTE STL STANDARD TITLE: NURSING NOTE DATE OF NOTE: MAR 23, 2024@09:38 ENTRY DATE: MAR 23, 2024@09:39:07 AUTHOR: GINGER LUGO EXP COSIGNER: URGENCY: STATUS: COMPLETED Provider Visit: Patient Identifiers : Full Name Date of Reason for visit: Other: Olanta has right groin pain. Olanta said he has a pimple in groin area that has gotten very painful. Olanta is also having right knee pain. said he feel a popping for about one week. Mode of Arrival: Ambulatory Allergy Review: Patient has answered NKA Allergy list reviewed and remains current. Recent Vital Signs: Temperature: 97.6 F [36.4 C] (03/23/2024 09:17) Pulse: 89 (03/23/2024 09:17) Respiration: 18 (03/23/2024 09:17) B/P: 106/71 (03/23/2024 09:17) Pain: 7 (03/23/2024 09:17) Wt: 218.7 lb [99.20 kg] (03/23/2024 09:17) Ht: 71 in [180.3 cm] (09/05/2023 11:12) BMI: 30.6 POX: 97% (03/23/2024 09:17) Would you like to discuss any personal problem, family problem, alcohol use, drug use, or a mental or emotional illness? No My [facility] ([facility]), please select appointment type: Face to face: No- Are you interested in getting this done? No Contact provided Primary Care phone number and encouraged to call if any questions or concerns. Review that after hours nurse line [phone] and emergency room are available 13/12 for patient use. Contact verbalized good understanding. /jordan/ GINGER LUGO LPN LICENSED PRACTICAL NURSE Signed: 03/23/2024 09:42 GINGER LUGO [facility] Mar 23, 2024 09:20 AM NURSING NOTE: LOCAL TITLE: V15 PACT FACE TO FACE NOTE STL STANDARD TITLE: NURSING NOTE DATE OF NOTE: MAR 23, 2024@09:20 ENTRY DATE: MAR 23, 2024@09:20:38 AUTHOR: NINO ONEAL COSIGNER: URGENCY: STATUS: COMPLETED RN SBAR for Unscheduled Patients: S: Situation (brief statement of chief complaint): Pt presents to clinic with complaint of right knee and groin pain. B: Background (precipitating/alleviating factors, etc.): Pt states right knee began to pop x 1 week ago with difficulty getting the knee to extend. Reports pain being on both side and in the back of knee, rates pain as 4/10 when the popping occurs. Pt states a few days ago noticed a pimple in right groin area that was sore. Area has worsen with noted increased redness and enlargement, slightly raised, painful to touch, no drainage, or open area noted, rates pain as 7/10, and clothes touching it causes more pain. A: Assessment (using nursing process but focusing on presenting complaint): Vitals: VSD - Detailed Vitals Date Vital Measurement Qualifiers 03/23/2024 09:17 Temp F (C) 97.6 (36.4) Pulse 89 Respir 18 BP 106/71 Wt lbs (kg)[BMI] 218.7 (99.20)[31*] Pain 7 POx (L/Min)(%) 97 Pt is alert and oriented, skin warm and dry, ambulates with limp to right lower extremity. States pain is more from groin than knee. Pt reports having a new girlfriend and being sexually active without protection. Pt is wanting to be tested for STDs. Pt reports feeling achy and having chills, unsure if he has had a temperature. Requesting to e evaluated for both complaints. R: Recommendation (what is RNCM going to do; intervention, warm handoff to Provider, INTERVENTIONAL NEURORADIOLOGIST, etc.): Pt scheduled Same Day Clinic appt on 03/23/2024 at 9:40AM. Team members that were notified of status: KELBY Corey /jordan/ CARA ONEAL RN,MSN,CCM Signed: 03/23/2024 09:38 Receipt Acknowledged By: 03/23/2024 09:44 /jordan/ GINGER LUGO LPN LICENSED PRACTICAL NURSE NINO ONEAL [facility]
[2024-08-20 08:20] VITALS: BP 116/72; PULSE 76; RESP 16; TEMP 36.6; O2SAT 99
--- OUTSIDE RECORDS SUMMARY | 2024-08-20 08:21 | XMS_ITS | Continuity of Care Document ---
Author Name [facility] Organization [facility] Care Team Providers Care Shuttle Van Driver Name Role Phone [facility] Unavailable Unavailable Problems Combined list of problems from Department of Defense and Veterans Affairs facilities. It does not include entries that were removed or entered in error. Problem Status Onset Date Problem Type Date of Resolution Comments Source Acne (ICD-9-CM 706.1) Active Condition [facility] ALCOHOL ABUSE Active Condition [facility] Attention deficit hyperactivity disorder, predominantly inattentive type Active Condition [facility] Chronic rhinitis Active Condition [facility] Depression Active Condition [facility] DEPRESSIVE DISORDER NOS Active Condition [facility] Diseases due to Viruses and Chlamydiae, other Specified Viral Warts (ICD-9-CM 07 Active Condition [facility] Exposure to potentially hazardous substance Active Condition [facility] Generalized anxiety disorder Active Condition [facility] ([facility] GERD - Gastro-Esophageal Reflux Disease (SCT 070058944) Active Condition [facility] Headache Active Condition [facility] History of traumatic brain injury Active Condition [facility] Hypercholesterolemia Active Condition [facility] ([facility] Hyperlipidemia Active Condition [facility]omnia Active Condition [facility] Intertrigo Active Condition [facility] Mixed hyperlipidemia * (ICD-9-CM 272.2) Active Condition [facility] Motor tic disorder Active Condition [facility] ([facility] NEOPLASM OF UNCERTAIN BEHAVIOR Active Condition [facility] Nondependent alcohol abuse in remission Active Condition [facility] Obesity Active Condition [facility] Obstructive Sleep Apnea Syndrome (SCT 87587240) Active Condition [facility] Past history of procedure Active Condition Dec 14, 2019 Entered By: BRENDON OCHOA Comment: childhood lithotripsyJul 2019 Entered By: BRENDON OCHOA Comment: 06/2016 nasal septoplasty and sinus surgery [facility] Posttraumatic stress disorder Active Condition [facility] PTSD - Post-Traumatic Stress Disorder ([facility] [id number]) Active Condition [facility] Recurrent major depression Active Condition [facility] ([place] Tobacco User ([facility] [id number]) Active Condition [facility] Diagnosis: ICD-10-CM G47.33 Obstructive sleep apnea (adult) (pediatric) Active Diagnosis [facility] Diagnosis: ICD-10-CM M25.561 Pain in right knee Active Diagnosis [facility] Diagnosis: ICD-10-CM F90.0 Attn-defct hyperactivity disorder, predom inattentive type Active Diagnosis [facility] Diagnosis: ICD-10-CM F43.10 Post-traumatic stress disorder, unspecified Active Diagnosis [facility] Diagnosis: ICD-10-CM L30.4 Erythema intertrigo Active Diagnosis [facility] Diagnosis: ICD-10-CM J02.9 Acute pharyngitis, unspecified Active Diagnosis [facility] Diagnosis: ICD-10-CM Z04.9 Encounter for examination and observation for unsp reason Active Diagnosis [facility] Diagnosis: ICD-10-CM 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 Medication Details Route Status Patient Instructions Prescription Expires Prescription Number Last Dispense Date Ordering Provider Order Date Order Qty Source AMPHETAMINE /DEXTROAMPH ETAMINE 10MG TAB TAKE ONE TABLET BY MOUTH TWICE A DAY ORAL SUSPEND ED 09/07/[id number] YOKO PHILLIPS 2024 60 [facility] N AMPHETAMINE /DEXTROAMPH ETAMINE 10MG TAB TAKE ONE TABLET BY MOUTH TWICE A DAY FOR ADHD ORAL DISCONT INUED 08/25/2024 [id number] YOKO PHILLIPS 2024 60 [facility] AMPHETAMINE /DEXTROAMPH ETAMINE 10MG TAB TAKE ONE TABLET BY MOUTH TWICE A DAY FOR ADHD ORAL 05/10/[id number] 4 DEREK PIMENTEL 2023 60 [facility] N AMPHETAMINE /DEXTROAMPH ETAMINE 10MG TAB TAKE ONE TABLET BY MOUTH TWICE A DAY ORAL 01/13/[id number] 4 JOAN DELACRUZ 2023 60 [facility] N AMPHETAMINE /DEXTROAMPH ETAMINE 10MG TAB TAKE ONE TABLET BY MOUTH TWICE A DAY ORAL 11/10/[id number] 4 JOAN DELACRUZ 2023 60 [facility] N AMPHETAMINE /DEXTROAMPH ETAMINE 10MG TAB TAKE ONE TABLET BY MOUTH TWICE A DAY FOR ADHD ORAL 09/15/2023 [id number] YOKO PHILLIPS ERIK 2023 60 [facility] ATORVASTATI N CA 40MG TAB TAKE ONE-HALF TABLET BY MOUTH EVERY EVENING TO LOWER CHOLESTE ROL ORAL ACTIVE 04/11/2025 [id number] GEENA BAIRD 2023 45 [facility] ATORVASTATI N CA 40MG TAB TAKE ONE-HALF TABLET BY MOUTH EVERY EVENING TO LOWER CHOLESTE ROL ORAL DISCONT INUED 03/21/2024 [id number] ME RAVIN TTISA 2022 45 [facility] BUPROPION HCL 150MG 24HR TAB,SA TAKE TWO TABLETS BY MOUTH ONCE A DAY SWALLOW WHOLE - DO NOT CRUSH OR CHEW. ORAL ACTIVE 04/26/2025 [id number] 5 JOAN DELACRUZ 2023 180 [facility] BUPROPION HCL 150MG 24HR TAB,SA TAKE TWO TABLETS BY MOUTH ONCE A DAY SWALLOW WHOLE - DO NOT CRUSH OR CHEW. ORAL DISCONT INUED 10/11/2024 [id number] 4 JOAN DELACRUZ CHIQUITA 2023 180 [facility] BUPROPION HCL 150MG 24HR TAB,SA TAKE TWO TABLETS BY MOUTH ONCE A DAY SWALLOW WHOLE - DO NOT CRUSH OR CHEW. ORAL DISCONT INUED 08/16/2024 [id number] 4 YOKO PHILLIPS 2023 180 [facility] BUPROPION HCL 150MG 24HR TAB,SA TAKE TWO TABLETS BY MOUTH ONCE A DAY SWALLOW WHOLE - DO NOT CRUSH OR CHEW. ORAL DISCONT INUED 01/05/2024 [id number] 4 NUBIAJOAN CHIQUITA 2022 180 [facility] BUSPIRONE HCL 10MG TAB TAKE ONE TABLET BY MOUTH TWICE A DAY FOR ANXIETY DO NOT TAKE WITH GRAPEFRU IT JUICE. ORAL DISCONT INUED BY PROVIDE R 10/11/2024 [id number] 4 DELACRUZJOAN CHIQUITA 2023 180 [facility] DOXYCYCLINE MONOHYDRATE 100MG CAP TAKE ONE CAPSULE BY MOUTH TWICE A DAY TAKE UNTIL FINISHED . AVOID SUN EXPOSURE WHILE TAKING. ORAL DISCONT INUED BY PROVIDE R 04/22/2024 [id number] CHIDI MONTILLA 2023 20 [facility] FLUCONAZOLE 150MG TAB TAKE ONE TABLET BY MOUTH ONE-TIME FOR FUNGAL INFECTIO N ORAL ACTIVE 04/11/2025 [id number] GEENA BAIRD 2023 1 [facility] IMIQUIMOD 5% CREAM,TOP,P KT,0.25GM APPLY TO AFFECTED AREA ON SKIN NON STANDARD TOPICA L ACTIVE ROMA GALEAS 2006 [facility] KETOCONAZOL E 2% CREAM,TOP APPLY LIGHTLY TO AFFECTED AREA(S) TWICE A DAY (EXTERNA L USE ONLY) TOPICA L 12/04/2023 [id number] Pinky NAJERA HIDIMMA N 2023 60 [facility] MELOXICAM 15MG TAB TAKE ONE TABLET BY MOUTH ONCE A DAY ORAL DISCONT INUED BY SILVER Parker 03/24/2025 [id number] CHIDI MONTILLA B 2023 30 [facility] MULTIVITAMI NS W/MINERALS CAP/TAB TAKE ONE TABLET BY MOUTH EVERY DAY ORAL ACTIVE YOKO GALEAS S 2007 [facility] NON-FORMULA RY TAB TAKE ANTIDEPR ESSANT BY MOUTH ONCE A DAY ORAL ACTIVE PACE,VICT OR M 2019 [facility] NYSTATIN 806428NOD/G M CREAM,TOP APPLY LIGHTLY TO AFFECTED AREA(S) THREE TIMES A DAY FOR FUNGAL SKIN INFECTIO N - TOPICAL USE ONLY. TOPICA L ACTIVE 04/11/2025 [id number] 4 GEENA BAIRD 2023 15 [facility] Immunizations Combined list of available immunizations from the Department of Defense and Veterans Affairs facilities. Immunization Series Date Given Administered By Site Reaction Lot Number CVX Code Drug Med Spec Status Comments Source HEP B, ADULT 1 2023 43 complet ed [facility] COVID-19 ([facility]), MRNA, LNP-S, PF, 30 MCG/0.3 ML DOSE 3 2021 208 complet ed [facility] COVID-19 ([employer]), MRNA, LNP-S, PF, 30 MCG/0.3 ML DOSE, EDDY-SUCROSE (AGES 12+ YEARS) 3 2021 217 complet ed [facility] COVID-19 ([employer]), MRNA, LNP-S, PF, 30 MCG/0.3 ML DOSE 2 2020 208 complet ed [facility] COVID-19 ([employer]), MRNA, LNP-S, PF, 30 MCG/0.3 ML DOSE 1 2020 208 complet ed [facility] INFLUENZA, UNSPECIFIED FORMULATION 2014 88 complet ed [place]. [place] [facility] INFLUENZA, UNSPECIFIED FORMULATION 2013 88 complet ed [facility] TETANUS DIPHTHERIA PERTUSSIS (Tdap) (HISTORICAL) 2013 115 complet ed [facility] TD (ADULT), 2 LF TETANUS TOXOID, PRESERVATIVE FREE, ADSORBED 2013 09 complet ed N. [place] /[facility] INFLUENZA, UNSPECIFIED FORMULATION 2006 88 complet ed [facility] TD(ADULT) UNSPECIFIED FORMULATION 1999 139 complet ed [facility] Results Combined list of recent chemistry, hematology [...] Mar 23, 2024 10:34 AM Reporting Lab: [facility] [address] [facility] [address] Performing Lab: [facility] [address] [facility] [address] [facility] GC & CHLAMYDI A PCR ([facility]-PB) [...] 23, 2024 10:34 AM Reporting Lab: [facility] [address] [facility] [address] Performing Lab: [place] [address] [facility] [address] [facility] TRICHOMO FARIBA PCR ([facility]) TRICHOMONA S VAGINALIS RRNA [PRESENCE] IN URINE [...] Mar 23, 2024 10:34 AM Reporting Lab: [facility] [address] [facility] [address] Performing Lab: [place] [address] [facility] [address] [facility] HEP C Ab HCV Ab (L) HEPATITIS C VIRUS AB [PRESENCE] IN SERUM Nonreact alma 03/23 Specimen Type: SERUM No comment entered. Ordering Provider: NHI MONTILLA Report Released Date/Time: Mar 23, 2024 10:34 AM Reporting Lab: [facility] [address] [facility] [address] Performing Lab: [place] [address] [facility] [address] [facility] HIV COMBO FOURTH GENERATI ON (STL) HIV 1+2 AB+HIV1 P24 AG [PRESENCE] IN SERUM OR PLASMA BY IMMUNOASSA Y Nonreact alma 03/23 Specimen Type: SERUM No comment entered. Ordering Provider: NHI MONTILLA Report Released Date/Time: Mar 23, 2024 10:34 AM Reporting Lab: [address] [address] Performing Lab: [address] [phone] RAPID PLASMA REAGIN (RPR) REAGIN AB [PRESENCE] IN SERUM BY RPR NONREACT ALMA 03/23 Specimen Type: SERUM No comment entered. Ordering Provider: NHI MONTILLA Report Released Date/Time: Mar 23, 2024 10:34 AM Reporting Lab: [address] [address] Performing Lab: [address] [phone] [place] [address] CBC LEUKOCYTES [#/VOLUME] IN BLOOD BY AUTOMATED COUNT 20.3 10*3/uL 3.6 - 11.2 05/02 H Specimen Type: BLOOD No comment entered. Ordering Provider: AHMET AMAYA Report Released Date/Time: May 02, 2023 04:58 PM Reporting Lab: [address] [address] Performing Lab: [address] [address] [facility] CBC ERYTHROCYT ES [#/VOLUME] IN BLOOD BY AUTOMATED COUNT 4.64 10*6/uL 4.10 - 5.70 05/02 Specimen Type: BLOOD No comment entered. Ordering Provider: AHMET AMAYA Report Released Date/Time: May 02, 2023 04:58 PM Reporting Lab: [address] [address] Performing Lab: [address] [address] [facility] CBC HEMOGLOBIN [MASS/VOLU ME] IN BLOOD 14.4 g/dL 13.1 - 16.8 05/02 Specimen Type: BLOOD No comment entered. Ordering Provider: AHMET AMAYA Report Released Date/Time: May 02, 2023 04:58 PM Reporting Lab: [place] [address] [facility] [address] Performing Lab: [address] [address] [facility] CBC HEMATOCRIT [VOLUME FRACTION] OF BLOOD 42.5 38.2 - 48.4 05/02 Specimen Type: BLOOD No comment entered. Ordering Provider: AHMET AMAYA Report Released Date/Time: May 02, 2023 04:58 PM Reporting Lab: [address] [address] Performing Lab: [address] [address] [facility] CBC MCV [ENTITIC VOLUME] BY AUTOMATED COUNT 91.6 fL 80.0 - 100.0 05/02 Specimen Type: BLOOD No comment entered. Ordering Provider: AHMET AMAYA Report Released Date/Time: May 02, 2023 04:58 PM Reporting Lab: [place] [address] [facility] [address] Performing Lab: [address] [address] [facility] CBC MCH [ENTITIC MASS] BY AUTOMATED COUNT 31.0 pg 27.0 - 34.0 05/02 Specimen Type: BLOOD No comment entered. Ordering Provider: AHMET AMAYA Report Released Date/Time: May 02, 2023 04:58 PM Reporting Lab: [address] [address] Performing Lab: [place] [address] [facility] [address] [facility] CBC MCHC [MASS/VOLU ME] BY AUTOMATED COUNT 33.9 g/dL 33.0 - 36.0 05/02 Specimen Type: BLOOD No comment entered. Ordering Provider: AHMET AMAYA Report Released Date/Time: May 02, 2023 04:58 PM Reporting Lab: [address] [address] Performing Lab: [address] [address] [facility] CBC PLATELETS [#/VOLUME] IN BLOOD BY AUTOMATED COUNT 259 10*3/uL 150 - 400 05/02 Specimen Type: BLOOD No comment entered. Ordering Provider: AHMET AMAYA Report Released Date/Time: May 02, 2023 04:58 PM Reporting Lab: [place] [address] [facility] [address] Performing Lab: [address] [address] [facility] CBC PLATELET MEAN VOLUME [ENTITIC VOLUME] IN BLOOD BY AUTOMATED COUNT 9.7 fL 7.5 - 11.2 05/02 Specimen Type: BLOOD No comment entered. Ordering Provider: AHMET AMAYA Report Released Date/Time: May 02, 2023 04:58 PM Reporting Lab: [place] [address] [facility] [address] Performing Lab: [address] [address] [facility] CBC ERYTHROCYT E DISTRIBUTI ON WIDTH [RATIO] BY AUTOMATED COUNT 12.6 11.8 - 15.1 05/02 Specimen Type: BLOOD No comment entered. Ordering Provider: AMHET AMAYA Report Released Date/Time: May 02, 2023 04:58 PM Reporting Lab: [address] [address] Performing Lab: [facility] [address] [facility] [address] [facility] CBC SEGMENTED NEUTROPHIL S/100 LEUKOCYTES IN BLOOD BY MANUAL COUNT 81.7 05/02 Specimen Type: BLOOD No comment entered. Ordering Provider: AHMET AMAYA Report Released Date/Time: May 02, 2023 04:58 PM Reporting Lab: [facility] [address] [facility] [address] Performing Lab: [facility] [address] [facility] [address] [facility] CBC BAND FORM NEUTROPHIL S/100 LEUKOCYTES IN BLOOD BY MANUAL COUNT 2.6 05/02 Specimen Type: BLOOD No comment entered. Ordering Provider: AHMET AMAYA Report Released Date/Time: May 02, 2023 04:58 PM Reporting Lab: [facility] [address] [facility] [address] Performing Lab: [facility] [address] [facility] [address] [facility] CBC MONOCYTES/ 100 LEUKOCYTES IN BLOOD BY AUTOMATED COUNT 4.4 05/02 Specimen Type: BLOOD No comment entered. Ordering Provider: AHMET AMAYA Report Released Date/Time: May 02, 2023 04:58 PM Reporting Lab: [facility] [address] [facility] [address] Performing Lab: [facility] [address] [facility] [address] [facility] CBC EOSINOPHIL S/100 LEUKOCYTES IN BLOOD BY MANUAL COUNT 2.6 05/02 Specimen Type: BLOOD No comment entered. Ordering Provider: AHMET AMAYA Report Released Date/Time: May 02, 2023 04:58 PM Reporting Lab: [facility] [address] [facility] [address] Performing Lab: [facility] [address] [facility] [address] [facility] CBC BASOPHILS/ 100 LEUKOCYTES IN BLOOD BY MANUAL COUNT 1.7 05/02 Specimen Type: BLOOD No comment entered. Ordering Provider: AHMET AMAYA Report Released Date/Time: May 02, 2023 04:58 PM Reporting Lab: [facility] [address] [facility] [address] Performing Lab: [facility] [address] [facility] [address] [facility] CBC PAPPENHEIM ER BODIES 0 05/02 Specimen Type: BLOOD No comment entered. Ordering Provider: AHMET AMAYA Report Released Date/Time: May 02, 2023 04:58 PM Reporting Lab: [facility] [address] [facility] [address] Performing Lab: [place] [address] [facility] [address] [facility] CBC LYMPHOCYTE S/100 LEUKOCYTES IN BLOOD BY MANUAL COUNT 7.0 05/02 Specimen Type: BLOOD No comment entered. Ordering Provider: AHMET AMAYA Report Released Date/Time: May 02, 2023 04:58 PM Reporting Lab: [facility] [address] [facility] [address] Performing Lab: [place] [address] [facility] [address] [facility] CBC PLATELET ADEQUACY [PRESENCE] IN BLOOD BY LIGHT MICROSCOPY ADEQUATE 05/02 Specimen Type: BLOOD No comment entered. Ordering Provider: AHMET AMAYA Report Released Date/Time: May 02, 2023 04:58 PM Reporting Lab: [facility] [address] [facility] [address] Performing Lab: [place] [address] [facility] [address] [facility] CBC MANUAL DIFFERENTI AL COMMENT [INTERPRET ATION] IN BLOOD NARRATIVE Yes 05/02 Specimen Type: BLOOD No comment entered. Ordering Provider: AHMET AMAYA Report Released Date/Time: May 02, 2023 04:58 PM Reporting Lab: [address] [address] Performing Lab: [address] [address] [facility] CBC MANUAL DIFFERENTI AL PERFORMED [PRESENCE] IN BLOOD 0.53 0.00 - 0.05 05/02 H Specimen Type: BLOOD No comment entered. Ordering Provider: AHMET AMAYA Report Released Date/Time: May 02, 2023 04:58 PM Reporting Lab: [address] [address] Performing Lab: [address] [address] [facility] CBC BASOPHILS [#/VOLUME] IN BLOOD BY MANUAL COUNT 0.35 10*3/uL 0.01 - 0.20 05/02 H Specimen Type: BLOOD No comment entered. Ordering Provider: AHMET AMAYA Report Released Date/Time: May 02, 2023 04:58 PM Reporting Lab: [address] [address] Performing Lab: [address] [address] [facility] CBC EOSINOPHIL S [#/VOLUME] IN BLOOD BY MANUAL COUNT 0.53 10*3/uL 0.00 - 0.60 05/02 Specimen Type: BLOOD No comment entered. Ordering Provider: AHMET AMAYA Report Released Date/Time: May 02, 2023 04:58 PM Reporting Lab: [address] [address] Performing Lab: [address] [address] [facility] CBC MONOCYTES [#/VOLUME] IN BLOOD BY MANUAL COUNT 0.89 10*3/uL 0.19 - 0.80 05/02 H Specimen Type: BLOOD No comment entered. Ordering Provider: AHMET AMAYA Report Released Date/Time: May 02, 2023 04:58 PM Reporting Lab: [place] [address] [facility] [address] Performing Lab: [address] [address] [facility] CBC LYMPHOCYTE S [#/VOLUME] IN BLOOD BY MANUAL COUNT 1.42 10*3/uL 0.77 - 4.50 05/02 Specimen Type: BLOOD No comment entered. Ordering Provider: AHMET AMAYA Report Released Date/Time: May 02, 2023 04:58 PM Reporting Lab: [place] [address] [facility] [address] Performing Lab: [address] [address] [facility] CBC NEUTROPHIL S [#/VOLUME] IN BLOOD BY MANUAL COUNT 16.59 10*3/uL 2.10 - 8.00 05/02 H Specimen Type: BLOOD No comment entered. Ordering Provider: AMHET AMAYA Report Released Date/Time: May 02, 2023 04:58 PM Reporting Lab: [place] [address] [facility] [address] Performing Lab: [place] [address] [facility] [address] [facility] COMPREHE NSIVE METABOLI C PANEL CREATININE [MASS/VOLU ME] IN SERUM OR PLASMA 1.16 mg/dL 0.7 - 1.3 05/02 Specimen Type: PLASMA Comment: No hemolysis noted. Ordering Provider: AHMET AMAYA Report Released Date/Time: May 02, 2023 04:58 PM Reporting Lab: [address] [address] Performing Lab: [address] [address] [facility] COMPREHE NSIVE METABOLI C PANEL UREA NITROGEN [MASS/VOLU ME] IN SERUM OR PLASMA 9.2 mg/dL 9.0 - 25.0 05/02 Specimen Type: PLASMA Comment: No hemolysis noted. Ordering Provider: AHMET AMAYA Report Released Date/Time: May 02, 2023 04:58 PM Reporting Lab: [facility] [address] [facility] [address] Performing Lab: [facility] [address] [facility] [address] [facility] COMPREHE NSIVE METABOLI C PANEL GLUCOSE [MASS/VOLU ME] IN SERUM OR PLASMA 96 mg/dL 72 - 99 05/02 Specimen Type: PLASMA Comment: No hemolysis noted. Ordering Provider: AHMET AMAYA Report Released Date/Time: May 02, 2023 04:58 PM Reporting Lab: [place] [address] [facility] [address] Performing Lab: [place] [address] [facility] [address] [facility] COMPREHE NSIVE METABOLI C PANEL SODIUM [MOLES/VOL UME] IN SERUM OR PLASMA 136 meq/L 136 - 145 05/02 Specimen Type: PLASMA Comment: No hemolysis noted. Ordering Provider: AHMET AMAYA Report Released Date/Time: May 02, 2023 04:58 PM Reporting Lab: [facility] [address] [facility] [address] Performing Lab: [facility] [address] [facility] [address] [facility] COMPREHE NSIVE METABOLI C PANEL POTASSIUM [MOLES/VOL UME] IN SERUM OR PLASMA 3.9 meq/L 3.5 - 5 05/02 Specimen Type: PLASMA Comment: No hemolysis noted. Ordering Provider: AHMET AMAYA Report Released Date/Time: May 02, 2023 04:58 PM Reporting Lab: [facility] [address] [facility] [address] Performing Lab: [facility] [address] [facility] [address] [facility] COMPREHE NSIVE METABOLI C PANEL CHLORIDE [MOLES/VOL UME] IN SERUM OR PLASMA 105 meq/L 98 - 107 05/02 Specimen Type: PLASMA Comment: No hemolysis noted. Ordering Provider: AHMET AMAYA Report Released Date/Time: May 02, 2023 04:58 PM Reporting Lab: [facility] [address] [facility] [address] Performing Lab: [facility] [address] [facility] [address] [facility] COMPREHE NSIVE METABOLI C PANEL CARBON DIOXIDE, TOTAL [MOLES/VOL UME] IN SERUM OR PLASMA 21 meq/L 22 - 31 05/02 L Specimen Type: PLASMA Comment: No hemolysis noted. Ordering Provider: AHMET AMAYA Report Released Date/Time: May 02, 2023 04:58 PM Reporting Lab: [address] [address] Performing Lab: [place] [address] [facility] [address] [facility] COMPREHE NSIVE METABOLI C PANEL CALCIUM [MASS/VOLU ME] IN SERUM OR PLASMA 9.0 mg/dL 8.4 - 10.4 05/02 Specimen Type: PLASMA Comment: No hemolysis noted. Ordering Provider: AHMET AMAYA Report Released Date/Time: May 02, 2023 04:58 PM Reporting Lab: [place] [address] [facility] [address] Performing Lab: [facility] [address] [facility] [address] [facility] COMPREHE NSIVE METABOLI C PANEL PROTEIN [MASS/VOLU ME] IN SERUM OR PLASMA 7.2 g/dL 6 - 8.6 05/02 Specimen Type: PLASMA Comment: No hemolysis noted. Ordering Provider: AHMET AMAYA Report Released Date/Time: May 02, 2023 04:58 PM Reporting Lab: [place] [address] [facility] [address] Performing Lab: [facility] [address] [place] [phone] [facility] COMPREHE NSIVE METABOLI C PANEL ALBUMIN [MASS/VOLU ME] IN SERUM OR PLASMA 4.3 g/dL 3.4 - 5 05/02 Specimen Type: PLASMA Comment: No hemolysis noted. Ordering Provider: AHMET AMAYA Report Released Date/Time: May 02, 2023 04:58 PM Reporting Lab: [place] [address] [facility] [address] Performing Lab: [place] [address] [facility] [address] [facility] COMPREHE NSIVE METABOLI C PANEL BILIRUBIN. TOTAL [MASS/VOLU ME] IN SERUM OR PLASMA 1.7 mg/dL 0.2 - 1.2 05/02 H Specimen Type: PLASMA Comment: No hemolysis noted. Ordering Provider: AHMET AMAYA Report Released Date/Time: May 02, 2023 04:58 PM Reporting Lab: [place] [address] [facility] [address] Performing Lab: [place] [address] [facility] [address] [facility] COMPREHE NSIVE METABOLI C PANEL ALKALINE PHOSPHATAS E [ENZYMATIC ACTIVITY/V OLUME] IN SERUM OR PLASMA 89 U/L 40 - 150 05/02 Specimen Type: PLASMA Comment: No hemolysis noted. Ordering Provider: AHMET AMAYA Report Released Date/Time: May 02, 2023 04:58 PM Reporting Lab: [facility] [address] [facility] [address] Performing Lab: [place] [address] [facility] [address] [facility] COMPREHE NSIVE METABOLI C PANEL ASPARTATE AMINOTRANS FERASE [ENZYMATIC ACTIVITY/V OLUME] IN SERUM OR PLASMA 15 U/L 5 - 34 05/02 Specimen Type: PLASMA Comment: No hemolysis noted. Ordering Provider: AHMET AMAYA Report Released Date/Time: May 02, 2023 04:58 PM Reporting Lab: [place] [address] [facility] [address] Performing Lab: [place] [address] [facility] [address] [facility] COMPREHE NSIVE METABOLI C PANEL ALANINE AMINOTRANS FERASE [ENZYMATIC ACTIVITY/V OLUME] IN SERUM OR PLASMA 19 U/L 8 - 40 05/02 Specimen Type: PLASMA Comment: No hemolysis noted. Ordering Provider: AHMET AMAYA Report Released Date/Time: May 02, 2023 04:58 PM Reporting Lab: [place] [address] [address] [facility] [address] Performing Lab: [place] [address] [facility] [phone] [place] [address] COMPREHE NSIVE METABOLI C PANEL GLOMERULAR FILTRATION RATE/1.73 SQ M.PREDICTE D [VOLUME RATE/AREA] IN SERUM, PLASMA OR BLOOD BY CREATININE -BASED FORMULA (CKD-EPI 2020) 80.2 60 05/02 Specimen Type: PLASMA Comment: No hemolysis noted. Ordering Provider: AHMET AMAYA Report Released Date/Time: May 02, 2023 04:58 PM Reporting Lab: [place] [address] [facility] [address] Performing Lab: [place] [address] [facility] [address] [facility] COVID-19 DIAGNOST IC (FLU/RSV )([facility]) INFLUENZA VIRUS A AG [PRESENCE] IN [...] May 02, 2023 04:58 PM Reporting Lab: [address] [address] Performing Lab: [address] [address] [facility] COVID-19 DIAGNOST IC (FLU/RSV )([facility]) INFLUENZA B Negative 05/02 Specimen Type: NASOPHARYNX [...] May 02, 2023 04:58 PM Reporting Lab: [address] [address] Performing Lab: [address] [address] [facility] COVID-19 DIAGNOST IC (FLU/RSV )([facility]) SARS-COV-2 (COVID-19) RNA [PRESENCE] IN RESPIRATOR Y [...] May 02, 2023 04:58 PM Reporting Lab: [address] [address] Performing Lab: [place] [address] [facility] [address] [facility] COVID-19 DIAGNOST IC (FLU/RSV )([facility]) RSV (Cepheid) [...] May 02, 2023 04:58 PM Reporting Lab: [address] [address] Performing Lab: [address] [address] [facility] GC & CHLAMYDI A PCR ([facility]) NEISSERIA GONORRHOEA E DNA [PRESENCE] IN URINE [...] final interpretat ion. Ordering Provider: BARRINGTON ALICIA Report Released Date/Time: Mar 10, 2023 10:20 AM Reporting Lab: [address] [address] Performing Lab: [facility] [address] [place] [phone] [facility] GC & CHLAMYDI A PCR ([facility]-PB) CHLAMYDIA [...] Mar 10, 2023 10:20 AM Reporting Lab: [facility] [address] [place] [phone] Performing Lab: [facility] [address] [place] [phone] [facility] TRICHOMO FARIBA PCR ([facility]) TRICHOMONA S VAGINALIS [...] its performance characteris tics determined by the [facility]. It has not been cleared or approved by the US Food and Drug Administrat ion (FDA). Ordering Provider: BARRINGTON ALICIA MANDO Report Released Date/Time: Mar 10, 2023 10:20 AM Reporting Lab: [facility] [address] [facility] [address] Performing Lab: [facility] [address] [facility] [address] [facility] Vital Signs Combined list of inpatient and outpatient Vital Signs from Department of Defense and Veterans Affairs, ranging from 12 months to all on record, depending upon the facility. Vital Sign Value Date Comments Source SYSTOLIC BLOOD PRESSURE 137 04/10/2024 11:29:[facility] DIASTOL[facility] PRESSURE 84 04/10/2024 11:29:52 [facility] WEIGHT 223.1 04/10/2024 [facility]29:[facility] BMI 31 kg/m2 04/10/2024 11:29:52 [facility] TEMPERATURE 98.5 04/10/2024 11:29:52 [facility] PULSE 76 04/10/2024 11:29:52 [facility] RESPIRATION 20 04/10/2024 11:29:52 [facility] SYSTOLIC BLOOD PRESSURE 106 03/23/2024 09:17:23 [facility] DIASTOLIC BLOOD PRESSURE 71 03/23/2024 09:17:23 [facility] PULSE OXIMETRY 98 03/23/2024 09:17:23 [facility] WEIGHT 218.7 03/23/2024 09:17:23 [facility] BMI 31 kg/m2 03/23/2024 09:17:23 [facility] PAIN 7 03/23/2024 09:17:23 [facility] TEMPERATURE 97.6 03/23/2024 09:17:23 [facility] PULSE 89 03/23/2024 09:17:23 [facility] RESPIRATION 18 03/23/2024 09:17:23 [facility] SYSTOLIC BLOOD PRESSURE 122 09/05/2023 11:12:31 [facility] DIASTOLIC BLOOD PRESSURE 78 09/05/2023 11:12:31 STFredy BECKY [facility] PULSE OXIMETRY 99 09/05/2023 11:12:31 S Justin BECKY [facility] WEIGHT 225 09/05/2023 11:12:31 ST. Pinky [facility] BMI 31 kg/m2 09/05/2023 11:12:31 [facility] [facility] PAIN 0 09/05/2023 11:12:31 [facility] HEIGHT 71 09/05/2023 11:12:31 [facility] TEMPERATURE 98.7 09/05/2023 11:12:31 [facility] PULSE 77 09/05/2023 11:12:31 . [facility] RESPIRATION 19 09/05/2023 11:12:31 [facility] Encounters Combined list of: 1) Encounters from Department of [facility] Affairs facilities going backup to the last 18 months, not all [place] inpatient encounters are included; 2) Encounters from the Department of [facility] facilities going backup to 280 months. 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 MET ELVIRA ALICIA 03/10 [facility] Outpatient Encounter [id number] 04/05 [facility] PRO PHONE CALL 5-10 MIN [id number] Diagnos is: ICD-10- CM Z04.9 Encount er for examina tion and observa tion for unsp reason NORMAN MINOR 04/22 [facility] EMERGENCY DEPT VISIT LOW MDM [id number] Diagnos is: ICD-10- CM J02.9 Acute pharyng itis, unspeci fied SHEILA LLANOS RGE R 05/02 [facility] Outpatient Encounter [id number] SHEILA LLANOS RGE R 05/02 [facility] Outpatient Encounter [id number] 07/26 [facility] Outpatient Encounter [id number] 08/11 [facility] Outpatient Encounter [id number] VENKAT URIBE EE L 08/11 [facility] Outpatient Encounter [id number] 08/14 [facility] OFFICE O/P EST MOD 30 MIN [id number] Diagnos is: ICD-10- CM L30.4 Erythem a intertr julian NAJERA CH IDIMMA N 09/04 HC PRO PHONE CALL 11-20 MIN [id number] Diagnos is: ICD-10- CM G47.33 Obstruc tive sleep apnea (adult) ([facility]) NORMAN MINOR ISTINE M 09/05 [facility] Outpatient Encounter [id number] 09/28 [facility] OFFICE O/P EST MOD 30 MIN [id number] Diagnos is: ICD-10- CM F90.0 Attn-de fct hyperac tivity disorde r, predom inatten tive type MIO DELACRUZ IEL 10/10 [facility] Outpatient Encounter [id number] 12/13 [facility] Outpatient Encounter [id number] 12/13 [facility] OFFICE O/P EST MOD 30 MIN [id number] Diagnos is: ICD-10- CM F43.10 Post-tr aumatic stress disorde r, unspeci fied MIO DELACRUZ IEL 12/13 [facility] Outpatient Encounter [id number] 12/18 [facility] Outpatient Encounter [id number] 02/16 [facility] OFFICE O/P EST LOW 20 MIN [id number] Diagnos is: ICD-10- CM M25.561 Pain in right knee NHI MONTILLA 03/23 [facility] Outpatient Encounter [id number] 03/27 [facility] Outpatient Encounter [id number] 03/29 [facility] Outpatient Encounter [id number] NORMAN MINOR ISTINE M 03/29 [facility] OFFICE O/P EST MOD 30 MIN [id number] Diagnos is: ICD-10- CM F43.10 Post-tr aumatic stress disorde r, unspeci fied GEENA DELACRUZ 04/10 [facility] Outpatient Encounter [id number] 04/10 [facility] HC PRO PHONE CALL 21-30 MIN [id number] Diagnos is: ICD-10- CM G47.33 Obstruc tive sleep apnea (adult) ([facility]) GEENA DELACRUZ 04/24 [facility] Outpatient Encounter [id number] 04/25 [facility] OFFICE O/P EST MOD 30 MIN [id number] Diagnos is: ICD-10- CM F90.0 Attn-de fct hyperac tivity disorde r, predom inatten tive type MOI DELACRUZ 04/25 [facility] Outpatient Encounter [id number] 05/07 [facility] Outpatient Encounter [id number] 05/08 [facility] Outpatient Encounter [id number] 05/10 [facility] HC PRO PHONE CALL 21-30 MIN [id number] Diagnos is: ICD-10- CM G47.33 Obstruc tive sleep apnea (adult) ([facility]) GEENA DELACRUZ 05/21 PH1 ASSMT&MGMT NQHP -30 [id number] Diagnos is: ICD-10- CM G47.33 Obstruc tive sleep apnea (adult) ([facility]) GEENA DELACRUZ 05/29 [facility] Outpatient Encounter [id number] 05/29 [facility] Outpatient Encounter [id number] 05/31 [facility] THERAPEUTI C EXERCISES [id number] Diagnos is: ICD-10- CM M25.561 Pain in right knee JENNI HAWLEY 06/06 [facility] Outpatient Encounter [id number] PAUL DUKE 06/07 [facility] Outpatient Encounter [id number] 06/14 [facility] Outpatient Encounter [id number] 07/02 [facility] Outpatient [facility]counter [id number] 07/26 [facility] Out[facility] Encounter [id number] 07/26 [facility] N [facility] PH1 ASSMT&MGMT NQHP - [id number] Diagnos is: ICD-10- CM G47.33 Obstruc tive sleep apnea (adult) ([facility]) IVÁNNORMAN NATHEN M 07/26 [facility] N [facility] OFF/OP EST SEPTEMBER X REQ PHY/QHP [id number] Diagnos is: ICD-10- CM G47.33 Obstruc tive sleep apnea (adult) ([facility]) LIVE CRUZ B 08/08 [facility] N [facility] Outpatient Encounter [id number] 08/08 [facility] Outpatient Encounter [id number] 08/09 [facility] N Social History Combined list of available smoking, tobacco, and other social history from Department of Defense and Veterans Affairs facilities. Social History Type Response Date Comment Sour e Tobacco smoking status NHIS VA-TOBACCO USE FORMER CIGARETTES 04/10/2024 [facility] History of tobacco use VA-TOBACCO USE FORMER OTHER TYPE 04/10/2024 [facility] History of tobacco use VA-TOBACCO QUIT 1 TO < 5 YRS 2023 [facility] History of tobacco use VA-TOBACCO USER EVERY DAY 09/28/2021 [facility] History of tobacco use VA-TOBACCO USER SOME DAYS 07/14/2020 [facility] History of tobacco use VA-TOBACCO QUIT 5 TO < 15 YRS 02/07/2019 [facility] History of tobacco use PRIOR TOBACCO USE CESSATION DATE 12/19/2015 Vijay GARCIA/Saniya Stoddard [facility] History of tobacco use TOBACCO PACK YEARS 12/05/2015 [facility] History of tobacco use PRIOR TOBACCO USE CESSATION DATE 09/11/2015 NFredy GARCIA/Saniya Stoddard [facility] History of tobacco use TOBACCO PACK YEARS 09/10/2015 [facility] History of tobacco use PRIOR TOBACCO USE CESSATION DATE 07/19/2015 [place]y [place]/Saniya Stoddard [facility] History of tobacco use TOBACCO PACK YEARS 07/19/2015 [facility] History of tobacco use QUIT TOBACCO >12 MO and <7 YRS AGO 05/08/2014 [facility] History of tobacco use NON TOBACCO USER - QUIT IN PAST YEAR 06/13/2007 [facility] History of tobacco use CURRENT SMOKER 05/22/2007 [facility] History of tobacco use NON TOBACCO USER - QUIT IN PAST YEAR 04/05/2005 [facility] Plan of Care List of future care activities from Department [facility] facilities. Additional future care activities may be listed in the Assessment and Plan section. Date/Time Care Activity Care Activity Detail Facili ty 10/08/2024 AMBULATORY - MEDICINE AMBULATORY - MEDICI DONNA POLANCO [facility] Advance Directives List of completed, amended, or rescinded Advance Directives on record at Department [facility] facilities. An actual copy of the Directive is not included. Date Advance Directive Provider Source 05/23/2007 ADVANCE DIRECTIVE DISCUSSION SAI CISSE [facility]
== END 2024-08-20 09:35 | disposition home or self-care (01) ==
PROVIDERS: Emergency Provider Nurse Practitioner
DX: L02.411 Cutaneous abscess of right axilla (principal); Z87.891 Personal history of nicotine dependence; G47.30 Sleep apnea, unspecified; E78.00 Pure hypercholesterolemia, unspecified; F32.A Depression, unspecified; Z98.52 Vasectomy status
CPT/HCPCS: 10060; 87070; 87075; 87181; 87205; 99213; G0463

== ENCOUNTER 2024-10-12 17:13 | Emergency (ER) | payer OTHER, MEDICAID, SELFPAY ==
[2024-10-12 17:46] VITALS: BP 110/79; PULSE 96; RESP 16; TEMP 36.8; O2SAT 99
--- NOTE | 2024-10-12 18:20 | ED_ITS ---
HPI - Skin/Abscess/Foreign Bdy General Chief complaint: Skin/Abscess/Foreign Body Stated complaint: SPIDER BITE Time Seen by Provider: 10/12/24 18:15 Source: patient, RN notes reviewed and old records reviewed Mode of arrival: ambulatory Limitations: no limitations History of Present Illness HPI narrative: 44 year old male presents to express care with complaints of being bit by something on his left lower leg sometime in the past couple of days. Patient reports that he noted a small pinpoint wound on left lower leg this morning and accidentally scratch scab off. He reports that since 1100 this morning his left lower leg has become red and warm to touch. MD complaint: insect bite/sting (left lower leg) Onset (ago): day(s) (1100 today redness, warmth and pain left lower leg) Location: LLE Severity scale (1-10): 3 Quality: aching Treatments prior to arrival: other Related Data Home Medications ?Medication ?Instructions ?Recorded ?Confirmed ?Last Taken ?Type atorvastatin 10 mg tablet 10 mg PO DAILY 01/10/24 10/12/24 Unknown History bupropion HCl 300 mg 24 hr tablet, 300 mg PO QAM 01/10/24 10/12/24 Unknown History extended release (Wellbutrin XL) Allergies Allergy/AdvReac Type Severity Reaction Status Date / Time No Known Allergies Allergy Verified 10/12/24 17:50 Review of Systems Review of Systems: CONSTITUTIONAL: Denies fever, chills, or sweats. CARDIOVASCULAR: Denies chest pain, palpitations, or edema. RESPIRATORY: Denies cough or dyspnea. GASTROINTESTINAL: Denies abdominal pain, nausea, vomiting SKIN: Reports redness and swelling with warmth and discomfort to left lower leg. Denies purulent drainage states scratched scab off of site left lower leg this morning and since 1100 has noted redness, warmth and pain MUSCULOSKELETAL: Denies myalgia. NEUROLOGIC: Denies headache, numbness All systems reviewed & are unremarkable except as noted in HPI and below PMFSH Past Medical History Medical History Sleep apnea treated with continuous positive airway pressure (CPAP) PTSD (post-traumatic stress disorder) Depression Elevated cholesterol Surgical History Surgical History History of vasectomy History of nasal surgery Family History Family History Mother Family history non-contributory Social History Social History Smoking status: Former smoker Living arrangements: with family Gender identity (if verbalized by the patient): Male Sexual Orientation (if Verbalized by the Patient): Straight or Heterosexual Spiritual care concerns: No Comments At time of signature, agree with nursing past medical, surgical, social and family history. There is no relevant family history pertinent to the presenting complaint Exam Narrative: GENERAL: Well-appearing, well-nourished, and in no acute distress. HEAD: Normocephalic, atraumatic. EYES: PERRLA and EOMI. ENT: Nares clear, no rhinorrhea or epistaxis. Mucous membranes moist. NECK: Supple.no lymphadenopathy CHEST: Clear to auscultation. No respiratory distress.SAO2 99% on room air HEART: Regular rate and rhythm. No murmur heard. Normal peripheral pulses. ABDOMEN: Soft, nontender, nondistended, normal active bowel sounds. EXTREMITIES: Normal range of motion. No edema. SKIN: Warm, dry. Erythema, induration, tenderness, warmth to left lower leg [id number] X5cm with pinpoint dark spot in middle, no acute swelling at dark spot, No vesicles or pustule formation NEURO: No focal deficits. Alert and oriented x3. Course Course Emergency Course: Patient is aware of diagnosis, understands and agrees to treatment plan. Anticipatory guidance given. Patient agrees to follow-up as directed and is aware of reasons to seek care at the emergency department. Portions of this record may have been created with voice recognition software Level of Care: Express Care Visit Vital Signs Vital signs: Vital Signs Temperature 36.8 C 10/12/24 17:46 Pulse Rate 96 10/12/24 17:46 Respiratory Rate 16 10/12/24 17:46 Blood Pressure 110/79 10/12/24 17:46 Pulse Oximetry 99 10/12/24 17:46 Oxygen Delivery Room Air 10/12/24 17:46 Temperature 36.8 C 10/12/24 17:46 Pulse Rate 96 10/12/24 17:46 Respiratory Rate 16 10/12/24 17:46 Blood Pressure 110/79 10/12/24 17:46 Pulse Oximetry 99 10/12/24 17:46 Oxygen Delivery Room Air 10/12/24 17:46 Reviewed MDM - Skin/Abscess/Foreign Bdy MDM Narrative Medical decision making narrative: Does not appear at this time to be erythema multiforme, bullous, SJS, TEN; no evidence at this time to suggest RMSF, endocarditis or Lyme disease; patient looks well, nontoxic and is tolerating oral intake; no neurologic signs or symptoms; no headache, photophobia or neck pain; afebrile; appropriate for initial outpatient treatment; discussed the importance of follow-up, patient agrees. Patient does not have history of penetrating trauma, laceration, blunt trauma, recent surgery, immunosuppression, malignancy, obesity, alcoholism, corticosteroid use. Question cellulitis, necrotizing soft tissue infection, abscess. Differential Diagnosis Differential diagnosis: Likely abscess of skin or subcutaneous tissue, cellulitis, insect bites and contact dermatitis Medical Records Attestation: I reviewed the patient's medical records. Critical Care Time Critical Care Time Critical Care Time: No Discharge Plan Discharge Clinical Impression: Cellulitis of left leg Insect bite Qualifiers: Site of insect bite: lower leg Patient Disposition: Home Condition: Stable Instructions: Antibiotic Form, Cellulitis (ED), Insect Bite or Sting (ED) Additional Instructions: cleanse skin area on left lower leg twice daily with liquid Dial soap apply mupirocin ointment dressing of choice or leave open to air watch for any increasing infection--redness, swelling, drainage Tylenol or ibuprofen for any fever pain follow up with PCP in 7-10 days for a wound check recheck if develop fever, chills, increasing symptom Go to the ER if your symptoms become worse of if ANY new symptoms develop antibiotics as prescribed complete all doses monitor for any fevers If your symptoms persist, change or worsen significantly before you can contact your personal physician then please, without delay, go to the emergency department for further evaluation. Follow-up with PCP in 7-10 days or sooner if needed Patient Language: Liberian Prescriptions: New cephalexin 500 mg capsule 500 mg PO Q8H Qty: 30 0RF mupirocin [Centany] 2 % ointment 1 applic topical BID Qty: 22 0RF No Action atorvastatin 10 mg Tablet 10 mg PO DAILY bupropion HCl [Wellbutrin XL] 300 mg Tablet Extended Release 24 Hr 300 mg PO QAM Follow-up/Referrals: [facility] [Other] Time of Disposition: 18:42 Quality Nabila Coma Scale Eyes: Open Verbal: Oriented and Alert Motor: Follows Commands Nabila Coma Total Score: 15
== END 2024-10-12 18:46 | disposition home or self-care (01) ==
PROVIDERS: Emergency Provider Registered Nurse
DX: L03.116 Cellulitis of left lower limb (principal); S80.862A Insect bite (nonvenomous), left lower leg, initial encounter; W57.XXXA Bitten or stung by nonvenomous insect and other nonvenomous arthropods, initial encounter; Z87.891 Personal history of nicotine dependence; E78.00 Pure hypercholesterolemia, unspecified; Z98.52 Vasectomy status; F32.A Depression, unspecified
CPT/HCPCS: 99213; G0463

== ENCOUNTER 2025-05-18 09:26 | Emergency (ER) | payer BC, SELFPAY ==
--- OUTSIDE RECORDS SUMMARY | 2025-05-18 09:28 | XMS_ITS | Patient Health Record ---
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 Name Role Phone WALT PILO Primary Care Provider [phone] Allergies Allergen (clinical drug ingredient) Drug/Non Drug Allergy documented on EMR Reaction Allergy Type Onset Date Status No Known Drug Allergy Unknown Drug Allergy Active No Known Food Allergy Unknown Drug Allergy Active Reason For Referral No Information Medications Medication SIG (Take, Route, Frequency, Duration) Notes Start Date End Date Status Paxlovid (150/100) 10 x 150 MG & 10 x 100MG Tablet Therapy Pack as directed Orally daily; Duration: 5 days 12/22/2023 Active Adderall 10 MG Tablet 1 tablet Orally Tw ice a day Active Atorvastatin Calcium 20 MG Tablet 1 tablet Orally Once a day Active Wellbutrin SR 200 MG Tablet Extended Release 12 Hour 1 tablet in the morning Orally Once a day 300 mg 12/22/2023 Active Social History Tobacco Use: Social History Observation Description Date Details (start date - stop date) Never Smoker NA - NA Sex Assigned At : Social History Observation Description Sex Assigned At Male Social History Caffeine/Drugs/Alcohol/COW/B AM: Social Info Question Answer Notes Drugs Have you used drugs other than those for medical reasons in the past? No Caffeine Intake: none Tobacco Use: Social Info Question Answer Notes Tobacco Control (Standard) Tobacco use: Nonsmoker Additional Details Category Social Info Options Details Caffeine/Drugs/Alcohol/COW/BAM: Do you smoke marijuana ? Denies Do you drink alcohol? No Problems Problem Type SNOMED Code ICD Code Onset Dates Problem Status W/U Status Risk Notes Problem Body mass index 30+ - obesity (558355329) Body mass index (BMI) of 30.0-30.9 in adult (Z68.30) Active confirmed Plan Of Treatment Pending Test Test Name [...] Insured Coverage Start Date Coverage End Date [facility] Claims [address] [place] [address] [id number] Swati Mujica Self - patient is the insured Medical (General) History Medical History History ICD Code No latex allergy hypercholesterolemia ADHD Surgical History Surgery Date(Month/Year) nose 05/2016
--- OUTSIDE RECORDS SUMMARY | 2025-05-18 09:29 | XMS_ITS | Data Portability ---
Author Organization [place] [facility], Main Office Address [address] [place] [address] Assessment Encounter Date Assessment Date Assessment LastModified by Organization Details LastModified Time 09/15/2023 09/15/2023 Assessment: TEVIN PLMD Hypoventilation Plan: The following were reviewed and explained to the patient: primary care/referral note We will try to obtain his old sleep studies from: 1. [facility] in [place], [place]. 2. [facility] on [place], [place]. General information on sleep disordered breathing, [...] were reviewed and explained to the patient: [facility] diagnostic sleep study 12/14/23 sleep onset = 6 minutes, REM onset = 317.5 minutes, AHI = 32, PLMI = 0.0 We will try to obtain his old sleep studies from: 1. [facility] in [place], [place]. 2. [facility] on [place], [place]. General information on sleep disordered breathing, [...] 6 yrs or older 024 09/15/19 24 [email or web address] 5 [facility] [place], [address] [place], [address], 08:53:07 Medication Orders None recorde d. Patient TargetsNo targets recorded. Patient InstructionsNo instructions recorded. Reason for Referral None Reported. Results Created Date Observation Date Name Description Value Unit Range Abnormal Flag Note LastModifiedBy Organization Detail LastModifiedTime 09/28/1912/06/2016 home sleep study No observ ation record ed. BARCODE Not Available 2023 16:37:44 01/02/20 24 12/14/2023 polys omnog norman, diagn ostic , 6 yrs or older No observ ation record ed. BARCODE [facility] [address] [place], [address], 01/02/2024 15:19:25 Result Notes None recorded. 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 Procedures Surgical History Date Name Laterality Status Provider Name and Address Organization Details Recorded Time operation on nose completed Odalis Aguirre CMA [facility] 09/15/2023 10:34:10 Imaging Results None recorded. Procedure Notes None recorded. Medical Equipment None [...] Available No t Available Vitals Date Recorded Heart rate Respiratory rate Provider N lisseth and Address Organization Details Last Updated DateTime 09/15/2023 78 /min 15 /min Erik Tavarez MD [address] [facility], [address], [address], [place] [employer] [facility] 09/15/2023 11:15:53 Date Recorded Body weight Body mass index (BMI) Body height Heart rate Oxygen saturation Body temperature Systolic And Diastolic Provider Name and Address Organization Details Last Updated DateTime 4 365824. 69 g 31.2 kg/m2 180.34 cm 78 /min 99 % 97.4 [degF] 124/70 mm[Hg] Odalis Aguirre CMA [facility] 10:22:21 Date Recorded Heart rate Respiratory rate Provider N lisseth and Address Organization Details Last Updated DateTime 01/02/2024 62 /min 15 /min Erik Tavarez MD [address] [facility], [place] [address], [place], [address], [facility] 01/02/2024 15:46:36 Date Recorded Body height Body mass index (BMI) Body weight Heart rate Oxygen saturation Body temperature Systolic And Diastolic Provider Name and Address Organization Details Last Updated DateTime 4 180.34 cm 31.2 kg/m2 804333. 69 g 62 /min 98 % 98.1 [degF] 138/70 mm[Hg] Odalis Aguirre CMA [facility] 15:21:45 Social History Question Answer Notes LastModified by Organizat ion Details LastModified Time Tobacco Smoking Status Former Smoker Odalis Aguirre CMA null [employer] [facility] 09/15/2023 10:25:09 Is Blood Transfusion Acceptable In An Emergency? Yes [email or web address] Information not available 09/15/2023 What Is Your Level Of Caffeine Consumption? Moderate Energy Drink Information not available 09/15/2023 In The 14 Days Before Symptom Onset, Have You Had Close Contact With A Laboratory-confir med COVID-19 While That Case Was Ill? No [email or web address] Information not available 09/15/2023 In The 14 Days Before Symptom Onset, Have You Had Close Contact With A Person Who Is Under Investigation For COVID-19 While That Person Was Ill? No [email or web address] Information not available 09/15/2023 What Type Of Diet Are You Following? REGULAR Information not available 09/15/2023 When Did You Quit Smoking? 1-5yearssinc elastcigaret te 2019 [email or web address] Information not available 09/15/2023 How Many Children Do You Have? 3 [email or web address] Information not available 09/15/2023 What Is Your Relationship Status? Information not available 09/15/2023 Do You Use Your Seat Belt Or Car Seat Routinely? Yes Information not available 09/15/2023 Do You Have Smoke And Carbon Monoxide Detectors In Your Home? Yes [email or web address] Information not available 09/15/2023 Are You Passively Exposed To Smoke? No Information no t available 09/15/2023 Do You Use Sunscreen Routinely? Yes [email or web address] Information not available 09/15/2023 How Many Years Have You Smoked Tobacco? 10 [email or web address] Information not available 09/15/2023 Have You Recently Traveled Abroad? Yes 3 Weeks Ago Information not available 09/15/2023 Sex: Unknown Functional Status Question Answer Note LastModified by [employer] ion Details LastModified Time Do you use any illicit or recreational drugs? No [email or web address] Information not available 09/15/2023 What is your level of alcohol consumption? Occasional Wine [email or web address] Information not available 09/15/2023 Are you currently employed? Yes Self-empl oyed [email or web address] Information not available 09/15/2023 What is your exercise level? Moderate 3 times a week [email or web address] Information not available 09/15/2023 Mental Status Question Answer Note LastModified by Organizat ion Details LastModified Time Do you feel stressed (tense, restless, nervous, or anxious, or unable to sleep at night)? [id number] Anxiety [email or web address] Information not available 09/15/2023 Family History Nothing Reported. Medical History No medical history recorded. Past Encounters Encounter ID Performer Location Encounter Start Date Encounter Closed Date Diagnosis/Indication Diagnosis SNOMED-CT Code Diagnosis ICD10 Code Diagnosis IMO Codes Diagnosis Note [id number] Erik Tavarez MD [facility] [address] [address] 09/15/2023 09:52:11 09/16/2023 08:21:32 Sleep apnea 37084076 G47.30 G47.33 G47.36 G47.61 [id number] Erik Tavarez MD [facility] [address] 01/02/2024 15:01:21 01/03/2024 08:05:21 Obstructive sleep apnea syndrome 49574100 G47.33 Health Concerns Section Related Observation LastModified by Organization Detai ls LastModified Time None Recorded Concern Status LastModified by Organization Details LastModified Time None Recorded Advance Directives Directive None Recorded Payers Insurance Date Sequence Insurance Name Policy Number Policy Urban Covered Member ID Urban Member ID Guarantor Name 01/02/2024 OPT - [facility] Swati Mujica [id number] Swati Mujica Notes Date Note Type Note Provider Name and Address Organization Details Recorded Time 09/15/2023 text/html Primary care/Referring provider: Braxton Dick MD; Segun Palacios NP [...] moderate chance of dozing. Erik Tavarez MD [address] [place] [address], [address], [place] [facility] [email or web address] 09/15/2023 11:16:19 01/02/2024 text/html Primary care/Referring provider: Braxton Dick MD; Segun Palacios NP CC: I was diagnosed with TEVIN in 2014. I used CPAP x 2 years until the machine was recalled. Then I has nasal septoplasty. TEVIN improved. I tried the MAD x 6 months but did not like it. Now I want to use Inspire and I need a more recent sleep study. During the [facility] diagnostic sleep study on 12/14/23, sleep onset [...] moderate chance of dozing. Erik Tavarez MD [address] [place] [address], [place] [address], [place], [address], [place] [facility] 01/02/2024 15:46:44
--- OUTSIDE RECORDS SUMMARY | 2025-05-18 09:29 | XMS_ITS | Clinical Summary ---
Author Organization [facility] Address [address] [place] [address] Care Team Providers Care Antique Refinisher Name Role Phone Hipolito Yi MD Primary Care Provider [phone] Allergies No known active allergies Medications atorvastatin [...] 12:59 PM CDT Height 180.3 cm (5' 11) 02/24/2021 12:59 PM CDT Body Mass Index 33.05 02/24/2021 12:59 PM CDT Plan of Treatment Health Maintenance Due Date Last Done Comments Colorectal Cancer Screening Colonoscopy (10 Years) 1980 Annual Physical 1983 Hepatitis C 1998 DTaP, Tdap and Td Vaccines ( 1 - Tdap) 1999 Hepatitis B Vaccines (1 of 3 - 19+ 3-dose series) 1999 Pneumococcal Vaccine: Pediatrics (0 to 5 Years) and At-Risk Patients (6 to 49 Years) (1 of 2 - PCV) 1999 HPV Vaccines (1 - 3-dose SCD M series) 2007 COVID-19 Vaccine (3 - 2024-2 6 season) 2025 09/15/2020, 08/22/2020 Influenza Adult (#1) 2025 Hepatitis A Vaccines Aged Out No long er eligible based [...] patient's age to complete this topic Insurance [employer] Care Teams Antique Refinisher Relationship Specialty Start Date End Date Hipolito Yi MD PCP - General FAMILY PRACTICE 02/24/21
--- OUTSIDE RECORDS SUMMARY | 2025-05-18 09:29 | XMS_ITS | Clinical Summary ---
Author Organization [facility] Address [facility] [place] [address] Care Team Providers Care Spinner Operator Name Role Phone Rosalina William MD Primary Care Provider Allergies No known active allergies Medications atorvastatin (LIPITOR) 20 mg tablet Take 1 tablet (20 mg total) by mouth daily 8 Active buPROPion XL (WELLBUTRIN XL) 150 mg 24 hr tablet Take 2 tablets (300 mg total) by mouth every morning 1 Active puqdbcfc-ilo-MF -lycopen-lutein (Centrum Silver) 0.4 mg-300 mcg- 250 mcg tablet Take 1 tablet by mouth daily Active dextroamphetami ne-amphetamine (ADDERALL) 10 mg tablet Take 1 tablet (10 mg total) by mouth daily as needed Takes 1 prn. Active tadalafiL (CIALIS) 5 mg tablet Take 1 tablet (5 mg total) by mouth daily as needed for erectile dysfunction Active Active Problems Problem Noted Date Diagnosed Date TEVIN (obstructive sleep apnea) 10/22/2024 Recurrent major depression 03/02/2023 Assessment & Plan (03/02/2023 4:36 PM CDT): Chronic. Stable. Continue medication and care per Psychiatry Posttraumatic stress disorder 03/02/2023 Assessment & Plan (03/02/2023 4:36 PM CDT): Chronic. Stable. Continue medication and care per Psychiat[place] at the [place] Generalized anxiety disorder 03/02/2023 Assessment & Plan (03/02/2023 4:36 PM CDT): Chronic. Stable. Continue medication and care per Psychiatry at the [place] Mixed hyperlipidemia 03/02/2023 Obesity 03/02/2023 Assessment & Plan (03/02/2023 4:36 PM CDT): Chronic. Has been improving. His weight is down about 40+ lb compared to a year or 2 ago. Encouraged to keep up the good work. Attention-deficit hyperactiv ity disorder, predominantly inattentive type 03/02/2023 Assessment & Plan (03/02/2023 4:36 PM CDT): Chronic. Managed by physician at the [place]. Stable on medication. Defer refills on controlled [...] (post-traumatic stress disorder) Apnea spell Sleep difficulties Sleep apnea PONV (postoperative nausea and vomiting) GERD (gastroesophageal reflux disease) Family History Medical History Relation Name Comments Diabetes Maternal Grandfather Fuchs' dystrophy Maternal Grandmother Sjogren's syndrome Maternal Grandmother Fuchs' dystrophy Mother Colon cancer Neg Hx Prostate cancer Neg Hx Relation Name Status Comments Maternal Grandfather Maternal Grandmother Mother Social History Tobacco Use Types Packs/Day Years Used Date Smoking Tobacco: Former Smokeless Tobacco: Former Chew Tobacco Cessation:Counseling Given: Not Answered AUDIT-C Answer Date Recorded Q1: How often do you have a drink containing alc ohol? Monthly or less 10/30/2024 Q2: How many drinks containi ng alcohol do you have on a typical day when you are drinking? 1 or 2 10/30/2024 Q3: How often do you have si x or more drinks on one occasion? Never 10/30/2024 PHQ-2 Answer Date Recorded PHQ-2 Total Score (If total score is 3 or more points, staff should administer the PHQ-9) 2 03/02/2023 Personal Safety Answer Date Recorded Have you ever been in or are you currently in a harmful physical or emotional relationship or is someone making you feel afraid or unsafe? Denies 10/30/2024 Sex and Gender Information Value Date Recorded Sex Assigned at Not on file Legal Sex Male 1:58 PM CDT Gender Identity Not on file Sexual Orientation Not on file Last Filed Vital Signs Vital Sign Reading Time Taken Comments Blood Pressure 125/88 10/30/2024 8:42 AM CDT Pulse 67 10/30/2024 8:42 AM CDT Temperature 37 C (98.6 F) 10/30/2024 8:10 AM CDT Respiratory Rate 16 10/30/2024 8:42 AM CDT Oxygen Saturation 100% 10/30/2024 8:42 AM CDT Inhaled Oxygen Concentration - - Weight 100.5 kg (221 lb 8 oz) 10/30/2024 6:25 AM CDT Height 177.8 cm (5' 10) 10/30/2024 6:25 AM CDT Body Mass Index 31.78 10/30/2024 6:25 AM CDT Plan of Treatment Health Maintenance Due Date Last Done Comments Colon Cancer Screening-Colonoscopy 1980 Hepatitis C Screening 1980 Varicella Vaccines (1 of 2 - 13+ 2-dose series) 1993 Hepatitis B Screening 1998 HPV Vaccines (1 - 3-dose SCDM series) 2007 Depression Screening 03/02/2024 03/02/2023 Regular Well Visit/Exam 18-64 03/02/2024 03/02/2023 DTaP/Tdap/Td Vaccine (2 - Td or Tdap) 04/15/2024 04/15/2014, 08/21/2013, 05/23/1999 Covid-19 Vaccine ( season) 2025 08/16/2021, 08/16/2021, 09/15/2020, Additional history exists Influenza Vaccine (#1) 2025 5, 04/15/2014, 05/22/2007 Pneumococcal vaccine <65 Aged Out No longer eligible based on patient's age to complete this topic Insurance [facility] Care Teams Spinner Operator Relationship Specialty Start Date End Date Rosalina William MD PCP - General Family Medicine 03/02/23
--- OUTSIDE RECORDS SUMMARY | 2025-05-18 09:29 | XMS_ITS | Clinical Summary ---
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
[2025-05-18 09:36] VITALS: BP 141/80; PULSE 66; RESP 20; TEMP 36.6; O2SAT 100
[2025-05-18 10:07] LABS: EDCOVIDSCREEN Negative (Negative); EDINFLUASCREEN Negative (Negative); EDINFLUBSCREEN Negative (Negative)
--- NOTE | 2025-05-18 10:21 | ED.URI ---
HPI - URI/Sore Throat General Chief Complaint: Upper Respiratory Infection Stated Complaint: sinus/cough/chest congestion Time Seen by Provider: 05/18/25 10:05 Source: patient and RN notes reviewed Mode of arrival: ambulatory Limitations: no limitations History of Present Illness HPI Narrative: 45-year-old male patient presents Express Care complaining of upper respiratory symptoms approximately 4 days. Patient reports cough, congestion, sinus pressure, body aches, chills. Patient denies any other upper respiratory symptoms, fevers, nausea, vomiting, diarrhea, chest pain, breathing problems, or any other symptoms. Patient has been taking [id number] cold and flu medication without relief. Patient denies any significant past medical problems. Related Data Home Medications ?Medication ?Instructions ?Recorded ?Confirmed ?Last Taken ?Type atorvastatin 10 mg tablet 10 mg PO DAILY 01/10/24 10/12/24 Unknown History bupropion HCl 300 mg 24 hr tablet, 300 mg PO QAM 01/10/24 10/12/24 Unknown History extended release (Wellbutrin XL) dextroamphetamine-amphetamine .ROUTE 05/18/25 Unknown History Allergies Allergy/AdvReac Type Severity Reaction Status Date / Time No Known Allergies Allergy Verified 05/18/25 09:44 Review of Systems Review of Systems: CONSTITUTIONAL: Denies fever or sweats. Positive for body aches and chills EYES: Denies visual changes, redness, or discharge. ENT: Positive for sinus pressure, congestion. Negative for rhinorrhea, sore throat, or otalgia. CARDIOVASCULAR: Denies chest pain, palpitations, or edema. RESPIRATORY: Positive for cough. Negative for dyspnea. GASTROINTESTINAL: Denies abdominal pain, nausea, vomiting, or diarrhea. GENITOURINARY: Denies dysuria or hematuria. SKIN: Denies rash or itching. MUSCULOSKELETAL: Denies back pain, joint pain, or myalgia. NEUROLOGIC: Denies headache, numbness, or weakness. PSYCHIATRIC: Denies anxiety or depression. All other systems reviewed are negative, except as documented in HPI. [facility] Past Medical History Medical History Sleep apnea treated with continuous positive airway pressure (CPAP) PTSD (post-traumatic stress disorder) Depression Elevated cholesterol Surgical History Surgical History History of vasectomy History of nasal surgery Family History Family History Mother Family history non-contributory Social History Social History Smoking status: Former smoker Living arrangements: with family Gender identity (if verbalized by the patient): Male Sexual Orientation (if Verbalized by the Patient): Straight or Heterosexual Spiritual care concerns: No Comments At the time of my signature, I reviewed and agree with the nursing past medical, surgical, social, and family history. There is no relevant family history pertinent to the patient complaint. Exam Narrative: GENERAL: This is a well-nourished, well-developed adult, in no apparent distress. They are non ill-appearing, nontoxic appearing. HEAD: normocephalic, atraumatic. EYES: Sclera clear/white. Conjunctiva normal. Vision is grossly intact. Extraocular movements intact EARS: External ears normal, auditory canals clear and without drainage, TMs normal without perforation. Hearing grossly intact. NOSE: External nose normal with no obvious nasal discharge, nasal turbinates erythematous, no rhinorrhea. THROAT: Mucous membranes moist, posterior pharynx erythematous. PND present. Uvula midline. NECK: Neck supple, non-tender without lymphadenopathy, masses or thyromegaly. CARDIOVASCULAR: Regular rate and rhythm without murmurs, gallops, or rubs. RESPIRATORY: Clear to auscultation. Breath sounds equal bilaterally. No wheezes, rales, or rhonchi. SKIN: warm, Dry, intact with no suspicious lesions or rash, good texture and turgor. NEURO: awake, alert, and oriented to person, place and time. There were no obvious focal neurologic abnormalities. EXTREMITIES: No joint tenderness, effusion, or edema noted. BACK: Nontender without deformity. Course Course Level of Care: Express Care Visit Vital Signs Vital signs: Vital Signs Temperature 97.8 F 05/18/25 09:36 Pulse Rate 66 05/18/25 09:36 Respiratory Rate 20 05/18/25 09:36 Blood Pressure 141/80 H 05/18/25 09:36 Pulse Oximetry 100 05/18/25 09:36 Oxygen Delivery Room Air 05/18/25 09:36 Temperature 97.8 F 05/18/25 09:36 Pulse Rate 66 05/18/25 09:36 Respiratory Rate 20 05/18/25 09:36 Blood Pressure 141/80 H 05/18/25 09:36 Pulse Oximetry 100 05/18/25 09:36 Oxygen Delivery Room Air 05/18/25 09:36 [facility] Narrative Medical decision making narrative: Rapid COVID and flu were negative. Symptoms likely viral in etiology. Will send patient home with benzonatate tablets. Discussed physical exam findings. Advised supportive measures and signs/symptoms to go to the ER. Pt is appropriate for outpt treatment and f/u. Differential Diagnosis Differential Diagnosis: Differential diagnostic considerations for upper respiratory infection include upper respiratory infection, croup, otitis media, sinusitis, viral infection, bronchitis, influenza, pharyngitis, strep, uvulitis. Lab Data [facility] Lab Attestation statement: I personally reviewed the patient's lab results. Labs: Lab Results 05/18/25 Range/Units 09:44 POC Influenza A Ag Negative (Negative) POC Influenza B Ag Negative (Negative) POC SARS CoV-2 Ag Negative (Negative) Critical Care Time Critical Care Time Critical Care Time: No Discharge Plan Discharge Clinical Impression: Upper respiratory infection Qualifiers: URI type: unspecified viral URI Qualified Code(s): J06.9 - Acute upper respiratory infection, unspecified Patient Disposition: Home Condition: Stable Instructions: Antibiotic Form, Upper Respiratory Infection (ED) Additional Instructions: Your rapid COVID and flu were negative today. Most Viral illness may last between 7-10 days; antibiotics do not cure viral illness and are NOT recommended at this time. Recommend antihistamine Zyrtec for congestion. Take the benzonatate tablets as needed for cough. Warm tsp of honey at night before bed is also beneficial for the cough. Also, recommend symptomatic treatment includes: rest, fluids, and increase humidity of the air at home. Alternate with Tylenol ibuprofen as needed for pain or fevers. Please schedule a follow-up visit with your personal physician for further evaluation and treatment within 3-5days. Go to the ER if you developed breathing problems, uncontrollable vomiting, worsening fevers, chest pain, or any serious concerns. Patient Language: [place] Prescriptions: New benzonatate 200 mg capsule 200 mg PO TID PRN (Reason: cough) Qty: 20 0RF No Action atorvastatin 10 mg Tablet 10 mg PO DAILY bupropion HCl [Wellbutrin XL] 300 mg Tablet Extended Release 24 Hr 300 mg PO QAM dextroamphetamine-amphetamine [Adderall] .ROUTE Follow-up/Referrals: PHYSICIAN,BOND UNDERWRITER [Primary Care Provider, Internal Medicine] Time of Disposition: 10:18
== END 2025-05-18 10:22 | disposition home or self-care (01) ==
DX: J06.9 Acute upper respiratory infection, unspecified (principal); Z20.822 Contact with and (suspected) exposure to COVID-19; E78.00 Pure hypercholesterolemia, unspecified; G47.30 Sleep apnea, unspecified; F32.A Depression, unspecified; Z87.891 Personal history of nicotine dependence
CPT/HCPCS: 87426; 87804; 99213; G0463